=== PATIENT | male | born 1955 | race Caucasian/White ===

== ENCOUNTER 2017-12-22 11:00 | Emergency (ER) | payer SELFPAY ==
[~2017-12-22] VITALS: Ht 172.7 cm; Wt 128.0 kg
[2017-12-22 11:15] VITALS: BP 169/83; PULSE 66; RESP 18; TEMP 98.3; O2SAT 95
--- NOTE | 2017-12-22 13:18 | PD ---
HPI Chief Complaint: Back/ Neck Pain or Injury Time Seen by Provider: 13:03 Travel History International Travel<30 days: No Contact w/Intl Traveler<30days: No Traveled to known affect area: No History of Present Illness HPI 62-year-old male presents to the emergency department with complaint of low back pain 1 week. Denies traumatic injury. Says the pain was getting better but then decided to write on a 3 wagner yesterday, re-exacerbating his pain. Has history of low back pain and symptoms are consistent with past exacerbations , but have never been this bad. Denies encopresis, incontinence, saddle anesthesias. Denies IV drug use or cancer. Denies paresthesias, loss of sensation, decreased range of motion, decreased strength to bilateral lower extremities. Denies abdominal pain, change in urine or stool. Denies fever, vomiting. Back pain is right-sided. Has tried taking stfd-rxj-wlfscjv medications for symptom management. Has also tried using an cxem-rbb-sdnatgo pain pad to the area. Rates pain 10/10. Worse with movement, ambulation. A little better with rest. Stabbing in nature. No radiation of pain. No primary care provider. Denies significant past medical history. No known allergies. Has no other medical complaints. No other modifying factors or associated signs and symptoms. PFSH Past Medical History Medical History: Denies Significant Hx Tetanus Vaccination: > 5 Years ?: Not Past Surgical History Surgical History: No Previous Surgery Social History Alcohol Use: Yes (BEER DAILY) Tobacco Use: No Substance Use: No Allergies-Medications (Allergen,Severity, Reaction): Coded Allergies: No Known Allergies (Unverified , 12/22/17) Reported Meds & Prescriptions Reported Meds & Active Scripts Active [place] (Hydrocodone-Acetaminophen) 5 Mg-325 Mg Tab 1-2 Tab PO Q4-6H PRN Robaxin (Methocarbamol) 500 Mg Tab 500 Mg PO QID PRN Ibuprofen 800 Mg Tab 800 Mg PO Q8H PRN Review of Systems Except as stated in HPI: all other systems reviewed are Neg Physical Exam Narrative GENERAL: Well-nourished, well-developed male patient, in no acute distress; afebrile, nontoxic-appearing; appears painful SKIN: Warm and dry. HEAD: Atraumatic. Normocephalic. EYES: Pupils equal and round. No scleral icterus. No injection or drainage. ENT: Mucosa pink and moist. Airway patent. NECK: Trachea midline. CARDIOVASCULAR: Regular rate. RESPIRATORY: No accessory muscle use. GASTROINTESTINAL: Abdomen soft, non-tender, nondistended. Positive bowel sounds. No hepato-splenomegaly, or palpable masses. No guarding. MUSCULOSKELETAL: Bilateral lower extremities supple and non-tense with 2+ pedal pulses and sensory intact; with full range of motion and 5/5 strength. 2 + DTRs bilaterally. Active dorsiflexion and extension of bilateral feet. Right straight leg raise is positive for low back pain. Able to bear weight at the bedside and get to the wheelchair; unable to stand up straight secondary to pain; walks hunched over. Sitting up in bed at 90. No obvious deformities. No clubbing. No cyanosis. No edema. BACK: No midline point tenderness on palpation of the lumbar spine. Tenderness on palpation of right lumbar iliosacral area. No obvious deformities. NEUROLOGICAL: Awake and alert. Oriented 3. No obvious cranial nerve deficits. Motor grossly within normal limits. Normal speech. Moves all extremities. 5/5 strength to all extremities. Sensory intact. PSYCHIATRIC: Appropriate mood and affect; insight and judgment normal. Data Data Last Documented VS Vital Signs Date Time Temp Pulse Resp B/P (MAP) Pulse Ox O2 Delivery O2 Flow Rate FiO2 12/22/17 11:15 98.3 66 18 169/83 (111) 95 Orders Orders Ketorolac Inj (Toradol Inj) (12/22/17 13:30) Orphenadrine Inj (Norflex Inj) (12/22/17 13:30) Acetamin-Hydrocod 325-10 Mg ([place] 10-32 (12/22/17 14:15) Ed Discharge Order (12/22/17 14:08) [facility] Medical Decision Making Medical Screen Exam Complete: Yes Emergency Medical Condition: Yes Medical Record Reviewed: Yes Differential Diagnosis Acute exacerbation of chronic low back pain, low back pain, muscle spasm of low back, low back strain Narrative Course 62-year-old male with low back pain and muscle spasm of the lower back. He has history of low back pain and this exacerbation is consistent with past exacerbations, but worse. Denies traumatic injury. Denies encopresis, incontinence, saddle anesthesias. Denies IV drug use or cancer. Neuro exam is unremarkable. Patient able to ambulate in a hunched over position at the bedside. Toradol and Norflex administered in the ER. Patient still having significant pain after Toradol and Norflex. I discussed the patient with Dr. Jimenez and she is okay with me giving the patient something more for pain. [place] ordered. Ibuprofen, Robaxin, [place] prescribed for him. Instructed patient to follow up with primary care provider. Patient verbalizes understanding and agreement with treatment plan. Patient is medically cleared and stable for discharge. Discussed reasons to return to the emergency department. Patient agrees with treatment plan. The patients vital signs are stable and the patient is stable for outpatient follow-up and treatment. Patient discharged home, stable and in no acute distress. Diagnosis Primary Impression: Low back pain Qualified Codes: M54.5 - Low back pain Additional Impression: Muscle spasm Referrals: Primary Care Physician Patient Instructions: Acute Low Back Pain (ED), General Instructions, Low Back Strain (ED), Muscle Spasm (ED) Additional Instructions: Tylenol or ibuprofen as directed and as needed for pain Robaxin as prescribed and as needed for muscle spasms Heating pad and/or ice to affected area to reduce pain Avoid aggravating activities; increase activity as tolerated Follow-up with primary care provider Return to emergency department immediately with worsening of symptoms Med/Other Pt SpecificInfo: Prescription(s) given Scripts Hydrocodone-Acetaminophen ([place]) 5 Mg-325 Mg Tab 1-2 TAB PO Q4-6H Y for PAIN, #12 TAB 0 Refills Prov: Tammi Jimenez 12/22/17 Methocarbamol (Robaxin) 500 Mg Tab 500 MG PO QID Y for MUSCLE SPASM, #30 TAB 0 Refills Prov: Tammi Jimenez 12/22/17 Ibuprofen (Ibuprofen) 800 Mg Tab 800 MG PO Q8H Y for PAIN SCALE 1 TO 10, #20 TAB 0 Refills Prov: Tammi Jimenez 12/22/17 Disposition: 01 DISCHARGE HOME Condition: Stable Tammi Jimenez December 22, 2017 13:18
[2017-12-22] MEDS ORDERED: ROBA500T PO (13:21)
[2017-12-22] MEDS ORDERED: IBUP1TAB7 PO (13:21)
[2017-12-22] MEDS ORDERED: ORPHENADRINE INJ 60 MG/2 ML AMP IM ONE (13:30)
[2017-12-22] MEDS ORDERED: KETOROLAC TROMETHAMINE 60 MG/2 ML (IM) VIAL IM ONE (13:30)
[2017-12-22] MEDS ORDERED: NORC5TAB PO (14:08)
[2017-12-22] MEDS ORDERED: ACETAMINOPHEN/HYDROcodone 325 MG/10 MG TAB PO ONE (14:15)
== END 2017-12-22 14:26 | disposition home or self-care (01) ==
LOC: NEPD 11:00
DX: M54.5 Low back pain (principal); M62.838 Other muscle spasm
CPT/HCPCS: 96372; 99283; J1885; J2360

== ENCOUNTER 2018-01-09 10:48 | Inpatient (IN) | payer OTHER, MEDICARE ==
[~2018-01-09] VITALS: Ht 185.4 cm; Wt 121.3 kg
[2018-01-09] VITALS (12 sets, daily range): BP systolic 128–167; BP diastolic 69–100; PULSE 52–93; RESP 16–18; TEMP 97.8–99.5; O2SAT 92–100
[~2018-01-09 10:48] MED LIST: IBUP1TAB7 PO; NORC5TAB PO; ROBA500T PO
[2018-01-09] MEDS ORDERED: SODIUM CHLOR 0.9% 1000 ML INJ 1,000 ML IV ONE (10:52)
[2018-01-09] MEDS ORDERED: SODIUM CHLORIDE 0.9% FLUSH 10 ML FLUSH IVF PRN (11:00)
[2018-01-09] MEDS ORDERED: HEPARIN-NS/PF INJ 1,000 ML ONE (11:02)
[2018-01-09] MEDS ORDERED: VERAPAMIL HCL 5 MG/2 ML VIAL ONE (11:02)
[2018-01-09 11:07] LABS: AUTOMATED NEUTROPHIL # 2.6 TH/MM3 (1.8-7.7); BASOPHIL % 0.7 % (0.0-2.0); EOSINOPHIL # 0.1 TH/MM3 (0-0.4); EOSINOPHIL % 2.7 % (0.0-4.0); HEMATOCRIT 43.6 % (39.0-51.0); HEMOGLOBIN 14.9 GM/DL (13.0-17.0); LYMPH % 29.3 % (9.0-44.0); LYMPHOCYTE # 1.3 TH/MM3 (1.0-4.8); MEAN CELL VOLUME 92.7 FL (80.0-100.0); MEAN CORPUSCULAR HEMOGLOBIN 31.8 PG (27.0-34.0); MEAN CORPUSCULAR HGB CONC 34.2 % (32.0-36.0); MEAN PLATELET VOLUME 7.8 FL (7.0-11.0); MONO % 8.3 % (0.0-8.0); MONOCYTE # 0.4 TH/MM3 (0-0.9); PLATELET COUNT 153 TH/MM3 (150-450); RED CELL DISTRIBUTION WIDTH 14.2 % (11.6-17.2); WHITE BLOOD COUNT 4.4 TH/MM3 (4.0-11.0)
[2018-01-09] MEDS ORDERED: NITROGLYCERIN INJ 5 ML ONE (11:07)
[2018-01-09] MEDS ORDERED: MIDAZOLAM HCL 2 MG/2 ML VIAL ONE (11:11)
[2018-01-09 11:19] LABS: CALCIUM 8.8 MG/DL (8.5-10.1)
[2018-01-09 11:20] LABS: INTERNATIONAL NORMALIZED RATIO 1.1 RATIO; PROTHROMBIN TIME - PATIENT 11.1 SEC (9.8-11.6)
[2018-01-09 11:25] LABS: MAGNESIUM 2.2 MG/DL (1.5-2.5)
--- NOTE | 2018-01-09 11:33 | PD ---
HPI Chief Complaint: STEMI Alert Time Seen by Provider: 10:52 Travel History International Travel<30 days: No Contact w/Intl Traveler<30days: No Traveled to known affect area: No History of Present Illness HPI 63 y/o male presents by ambulance as a stemi alert. He had a witnessed cardiac arrest. Bystanders placed an AED on him and it advised to shock. Shock was delivered. Patient notes that he was feeling fine before he started working out. He states that he has not seen a physician in multiple years. He just started working out this week. He denies any other concurrent complaints at this time. The ambulance team provided him with aspirin prior to arrival. Dr. Aguilera was on scene and came with the patient in the ambulance and helped provide history. [facility] Past Medical History Medical History: Denies Significant Hx Past Surgical History Surgical History: No Previous Surgery Social History Alcohol Use: Yes (BEER DAILY) Tobacco Use: No Substance Use: No Allergies-Medications (Allergen,Severity, Reaction): Coded Allergies: No Known Allergies (Unverified , 12/22/17) Reported Meds & Prescriptions Reported Meds & Active Scripts Active [place] (Hydrocodone-Acetaminophen) 5 Mg-325 Mg Tab 1-2 Tab PO Q4-6H PRN Robaxin (Methocarbamol) 500 Mg Tab 500 Mg PO QID PRN Ibuprofen 800 Mg Tab 800 Mg PO Q8H PRN Review of Systems Except as stated in HPI: all other systems reviewed are Neg Physical Exam Narrative GENERAL: 63 y/o male in no apparent distess SKIN: Focused skin assessment warm HEAD: Atraumatic. Normocephalic. EYES: Pupils equal and round. No scleral icterus. No injection or drainage. ENT: No nasal bleeding or discharge. Mucous membranes pink and moist. NECK: Trachea midline. CARDIOVASCULAR: Regular rate and rhythm. RESPIRATORY: No accessory muscle use. Clear to auscultation. Breath sounds equal bilaterally. GASTROINTESTINAL: Abdomen soft, non-tender, nondistended. MUSCULOSKELETAL: No obvious deformities. No clubbing. No cyanosis. NEUROLOGICAL: Awake and alert. No obvious cranial nerve deficits. Motor grossly within normal limits. Normal speech. PSYCHIATRIC: Appropriate mood and affect; insight and judgment normal. Data Data Last Documented VS Vital Signs Date Time Temp Pulse Resp B/P (MAP) Pulse Ox O2 Delivery O2 Flow Rate FiO2 01/09/18 10:56 93 18 162/100 (120) 100 Non-Rebreather 14.00 Orders Orders Troponin I (01/09/18 10:52) Ckmb (Isoenzyme) Profile (01/09/18 10:52) Complete Blood Count With Diff (01/09/18 10:52) I-Stat Profile (01/09/18 10:52) I-Stat Creatinine (01/09/18 10:52) Calcium (01/09/18 10:52) Magnesium (Mg) (01/09/18 10:52) Prothrombin Time / Inr (Pt) (01/09/18 10:52) Act Partial Throm Time (Ptt) (01/09/18 10:52) B-Type Natriuretic Peptide (01/09/18 10:52) Electrocardiogram (01/09/18 10:52) Oxygen Administration (01/09/18 10:52) Iv Access Insert/Monitor (01/09/18 10:52) Oximetry (01/09/18 10:52) Sodium Chlor 0.9% 1000 Ml Inj (Ns 1000 M (01/09/18 10:52) Sodium Chloride 0.9% Flush (Ns Flush) (01/09/18 11:00) Chest, Single Ap (01/09/18 ) Cardiac Catheterization (01/09/18 ) Verapamil Inj (Isoptin Inj) (01/09/18 11:02) Heparin-Ns/Pf Inj (Heparin-Ns/Pf Inj) (01/09/18 11:02) Nitroglycerin Inj (Nitroglycerin Inj) (01/09/18 11:07) Admit Order (Ed Use Only) (01/09/18 11:10) Midazolam Inj (Versed Inj) (01/09/18 11:11) Fentanyl Inj (Fentanyl Inj) (01/09/18 11:11) CKMB (01/09/18 10:51) CKMB% (01/09/18 10:51) Labs Laboratory Tests Test 01/09/18 10:51 White Blood Count 4.4 TH/MM3 Red Blood Count 4.70 MIL/MM3 Hemoglobin 14.9 GM/DL Bedside Hemoglobin 13.6 G/DL Hematocrit 43.6 % Bedside Hematocrit 40.0 % Mean Corpuscular Volume 92.7 FL Mean Corpuscular Hemoglobin 31.8 PG Mean Corpuscular Hemoglobin Concent 34.2 % Red Cell Distribution Width 14.2 % Platelet Count 153 TH/MM3 Mean Platelet Volume 7.8 FL Neutrophils (%) (Auto) 59.0 % Lymphocytes (%) (Auto) 29.3 % Monocytes (%) (Auto) 8.3 % Eosinophils (%) (Auto) 2.7 % Basophils (%) (Auto) 0.7 % Neutrophils # (Auto) 2.6 TH/MM3 Lymphocytes # (Auto) 1.3 TH/MM3 Monocytes # (Auto) 0.4 TH/MM3 Eosinophils # (Auto) 0.1 TH/MM3 Basophils # (Auto) 0.0 TH/MM3 CBC Comment DIFF FINAL Differential Comment Prothrombin Time 11.1 SEC Prothromb Time International Ratio 1.1 RATIO Activated Partial Thromboplast Time 25.8 SEC Bedside Sodium 142 MMOL/L Bedside Potassium 3.7 MMOL/L Bedside Chloride 109 MMOL/L Bedside Blood Urea Nitrogen 12 MG/DL Bedside Creatinine 1.1 MG/DL Bedside Glucose 107 MG/DL Calcium Level 8.8 MG/DL Magnesium Level 2.2 MG/DL Total Creatine Kinase 272 U/L Creatine Kinase MB 2.6 NG/ML Troponin I 0.10 NG/ML B-Type Natriuretic Peptide 19 PG/ML MDM Medical Decision Making Medical Screen Exam Complete: Yes Emergency Medical Condition: Yes Medical Record Reviewed: Yes Interpretation(s) EKG shows ST depression V2 V3 with elevation in aVR concerning for posterior MT. STEMI alert was called given this and post cardiac arrest prior to arrival by EMS EKG ER EKG shows depression inferiorly and laterally I stats reviewed Differential Diagnosis V. tach, V. fib, MT Narrative Course Patient arrived as a stemi alert. Patient has no active chest pain and already received aspirin. Pain-free currently. Labs, chest x-ray ordered to help coordinate care to solar lab technician. Patient went to the [facility] with a director voice Physician Communication Physician Communication dr gordon notified of patient prior to arrival and sent ekg dr gordon saw patient in er and states will take to solar lab technician attempted to admit to medicine but they state needs to be admitted to the director voice Diagnosis Primary Impression: Ventricular arrhythmia Additional Impression: Syncope Qualified Codes: R55 - Syncope and collapse Berna Hall MD Jan 09, 2018 11:33
[2018-01-09] MEDS ORDERED: HEPARIN-D5W 25,000 U/250 ML 250 ML ONE (11:53)
--- NOTE | 2018-01-09 12:06 | CATHPROC ---
[employer] HIS Report Study Information Study Number Admission Scheduled Start Study Start [id number] Jan 09 2018 10:48AM 01/09/2018 Jan 09 2018 10:59AM [place] Service Cardiac Catheterization Admit Source Facility Department Emergency department [facility] - [facility] Physician Physician and Clinical Staff Initial Francois Schumacher Spanish Linguist Dorian Shannon,ARAM Spanish Linguist Layton Rizo,RN Recorder Jessica Armas ,RT(R) Scrub Cooper Valdovinos,RT(R) Procedures Performed Procedure Location (Site) Vessel Name Coronary Angiograms LCA Left Coronary Coronary Angiograms RCA Right Coronary L Heart Cath Wire insertion Radial (right) Radial Art. Equipment Time Inter Fold Roll Cutter Description Size Mfg Part Number Used/Scraped TRANSDUCER, TRUWAVE [id number] 11:01 MUIR COHEN * Used W/STOCKCOCK *[id number] *[id number] *[id number] *[id number] *[id number] 11:01 [employer] BLANKET,WARM AIR CCL * Used *[id number] 11:01 [employer] PACK, CCL CUSTOM * Used *[id number] 11:01 [employer] SUPPORT, ARTERIAL ADULT 86800 *[id number] Used BAND, RADIAL COMPRESSION TR [id number] 11:52 [employer] MEDICAL 29CM Used LARGE 29 *[id number] 11:01 Aula 7 WIRE, EXCHANGE 260CM 3MMJ 260CM Used *[id number] 11:01 NAMIC MANIFOLD, 4 PORT * Used *[id number] 11:01 [employer]ED OMNIPAQUE, 350 MG, 150ML 150ML [id number] Used SHEATH, FR6 TRANSRADIAL RM*[id number] 11:01 [employer] FR 6 Used SLENDER 10CM *[id number] History: Allergies Allergy Reaction No Known Allergies History: Risk Factors Family History of Hypertension Dyslipidemia Previous DC Previous Heart Failure Premature CAD No No No No No Prior Valve Prior PCI Prior CABG Surgery No No No Cerebrovascular Peripheral Artery Chronic Lung On Dialysis Diabetes Disease Disease Disease No No No No No History: Stress Tests Stress or Imaging Studies Performed No History: Other Current Smoker No Labs Hgb (g/dl) Hct (%) RBC (MIL/MM3) WBC (l/cumm) Platelets (thousands) 11.60-17.00 35.00-51.00 4.00-5.90 4.00-11.00 150.00-450.00 14.9 43.6 4.7 4.4 153 BUN (mg/dl) Creatinine (mg/dl) BUN:Creatinine (1:x) 7.00-18.00 0.50-1.30 10.00-20.00 12 1.1 10.9 Na (meq/l) K (meq/l) Cl (meq/l) 136.00-145.00 3.50-5.10 98.00-107.00 142 3.7 109 INR (PTT:PT) 0.90-1.10 1.1 CPK-MB (ng/ML) 0.50-3.60 Not Drawn Medication Medication Total Dose (Bolus/Oral) Medication Total Dosage/Unit 1% XYLOCAINE 5 mL FENTANYL 25 mcg HEPARIN 1000 units RADIAL COCKTAIL 5 mL (Bolus) VERSED 1 mg Medications (Bolus/Oral) Medication Time Given Dosage/Unit Administered By Reason VERSED 01/09/2018 11:21:57 AM 1 mg Sallie, Layton 1 mg VERSED given in lab by Layton Rizo RN in Left Antecubital via Peripheral IV. Ordered by Francois Guzman 1% XYLOCAINE 01/09/2018 11:22:38 AM 5 mL Sallie, Layton 5 mL 1% XYLOCAINE given in lab by Layton Rizo RN in Right Radial via Subcutaneous. Ordered by Francois Miranda FENTANYL 01/09/2018 11:22:59 AM 25 mcg Sallie, Layton 25 mcg FENTANYL given in lab by Layton Rizo RN in Left Antecubital via Peripheral IV. Ordered by Francois Lama Ntg 200mcg Verapamil 2.5mg Heparin RADIAL COCKTAIL 01/09/2018 11:23:52 AM 5 mL (Bolus) Francois Vincent 3000U 5 mL (Bolus) RADIAL COCKTAIL given in lab by Francois Vincent via Radial. Using [Solution Name]. O rdered by Francois Vincent Reason: Ntg 200mcg Verapamil 2.5mg Heparin 5000U. HEPARIN 01/09/2018 11:58:42 AM 1000 units Francois Vincent 1000 units HEPARIN given in lab by Francois Vincent in Left Antecubital via Peripheral IV. Ordered by Francois Vincent Medication (Drip) Medication Time Given Dosage/Unit Concentration/Unit Diluent (ml) Solution IV Solutions 01/09/2018 11:03:59 AM 50 mL (IV) NaCl .9 Patient arrived on IV Solutions in Left Antecubital via Peripheral IV. Pump/Drip Flow using NaCl .9. Initial Case Assessment Cardiovascular HR NIBP Chest Pain 89 154/93 2 Edema Present Skin color Skin None Normal Warm Dry Circulatory - Right Pulses Dorsalis Pedis Femoral Radial 1 1 2 Scale (0,1,2,3,4,d) Circulatory - Left Pulses Dorsalis Pedis Femoral Radial 1 1 Scale (0,1,2,3,4,d) Circulatory - Lower Extremities Color Lower Right Color Lower Left Normal Normal Neurological State Oriented to time-place- Alert Moves all extremities person Respiration - General Respiration Rate SpO2 (%) O2 (lpm) (B/min) 14 92 2 Final Case Assessment Cardiovascular HR NIBP Chest Pain 89 154/93 0 Edema Present Skin color Skin None Normal Warm Dry Circulatory - Right Pulses Dorsalis Pedis Femoral Radial 1 1 2 Scale (0,1,2,3,4,d) Circulatory - Left Pulses Dorsalis Pedis Femoral Radial 1 1 Scale (0,1,2,3,4,d) Circulatory - Lower Extremities Color Lower Right Color Lower Left Normal Normal Neurological State Oriented to time-place- Alert Moves all extremities person Respiration - General Respiration Rate SpO2 (%) O2 (lpm) (B/min) 14 92 2 Chronological Log Time Study Chronological Log 11:02:39 Patient arrived via Bed. 11:02:43 Patient Name, D.O.B, / Armband Verified By R.N. 11:03:48 Consent signed by the physician and the patient and verified by the Correctional Medicine Physician staff. 11:03:48 Pre-op and post- op instructions given; patient acknowledges understanding of instructions. 11:03:49 Verbal Stimulation=2 Physical Stimulation=2 Airway=2 Respiration=2 TOTAL=8. (0=absent, 1=li mited, 2=present) 11:03:51 Allens test performed on the left radial and ulnar artery. Positive 11:03:52 Immediate Presedation assesment performed by physician. 11:03:53 Patient has been NPO for More than 6Hrs. 11:03:53 Skin Breakdown- none per patient 11:03:54 Patient Warmer Placed on the Table. 11:03:57 Disposable Defibrillator Pads Placed On Patient. 11::57 Almas Prominences Protected 11::58 A # 18 IV was noted in the Antecubital (left). Grade = 0 11:03:58 A # 18 IV was noted in the Antecubital (right). Grade = 0 11:03:59 Patient arrived on IV Solutions in Left Antecubital via Peripheral IV. Pump/Drip Flow using NaCl .9. 11:03:59 History and physical on the chart or being dictated. Assessment: Initial Case, HR=89 BPM, DNSW=980/93 mmhg, Chest Pain=2, Edema=None, Color=Normal, Skin = Warm, Dry Right Pulses: Rayo Ped=1, Femoral=1, Radial=2 Left Pulses: Rayo Ped=1, Femoral=1 11:04:00 Lower Right Extremities: Color=Normal Lower Left Extremities: Color=Normal Neurological: State=Alert, Ox3, NASH Respiration: Resp=14 B/min, SpO2=92 %, O2=2 lpm 11:08:41 MD arrived. Vitals capture started with the following parameters, Patient=Adult, Interval=5 min, Initial Pr iuoqmo=706 mmHg, 11:08:48 Deflation Rate=5 mmHg, Cuff placed on Right Arm 11:09:30 DR=901 bpm, WZRP=997/93 mmhg, SpO2=91.0 %, Resp=27 B/min, Oneal=2 11:14:27 NTVN=942/92 mmhg, SpO2=95.0 %, Resp=25 B/min, Pain=2, Kesha=10, Oneal=2 11:19:01 Reference ECG taken 11:19:04 Pressure channel 1 zeroed. 11:19:26 HR=88 bpm, NZAV=840/91 mmhg, SpO2=93.0 %, Resp=21 B/min, Pain=2, Kesha=10, Oneal=2 Time Out. Correct patient, correct procedure, correct physician, labs, allergies, and equipment verified with mushroom laborer 11:21:07 team present. Fire risk assesment completed (see hard stop sheet for coding). Time Out Conc urred by MD and individual staff in procedure. 11:21:17 Case Start 11::57 1 mg VERSED given in lab by Layton Rizo RN in Left Antecubital via Peripheral IV. Ordered by Francois Vincent 5 mL 1% XYLOCAINE given in lab by Layton Rizo RN in Right Radial via Subcutaneous. Ordered by Francois Vincent 11:22:38 G. 25 mcg FENTANYL given in lab by Layton Rizo RN in Left Antecubital via Peripheral IV. Ordered by Francois Vincent 11:22:59 G. 11:23:05 Access site was Right Radial Artery. 11:23:15 A wire was inserted via Radial (right). A SHEATH, FR6 TRANSRADIAL SLENDER 10CM FR 6 was advanced into the Radial (right) using the Perc utaneous 11::21 technique. 5 mL (Bolus) RADIAL COCKTAIL given in lab by Francois Vincent via Radial. Using [Solution Na me]. Ordered by 11:23:52 Francois Vincent Reason: Ntg 200mcg Verapamil 2.5mg Heparin 5000U. 11:24:27 HR=86 bpm, RVXH=646/86 mmhg, SpO2=91.0 %, Resp=19 B/min, Pain=2, Kesha=10, Oneal=2 A JR 4.0 INFINITI CATHETER FR 5 was advanced over a wire. OMNIPAQUE, 350 MG, 150ML 150ML was us ed for 11:26:16 injections. Recorded Pressure: LV, HR=90, Condition=Condition 1 11:26:42 (Left Ventricle) LV 45/10/13 Recorded Pressure: LV, Ao, HR=92, Condition=Condition 1 11:26:53 (Left Ventricle) LV 126/-1/8, (Aorta) Ao 112/71/86 11:27:35 The RCA was injected and visualized at various angles. OMNIPAQUE, 350 MG, 150ML 150ML used . 11:29:26 HR=88 bpm, VZHA=215/75 mmhg, SpO2=91.0 %, Resp=23 B/min, Pain=2, Kesha=10, Oneal=2 After removing the current catheter a JL 3.5 INFINITI CATHETER FR 5 was advanced over a WIRE, E XCHANGE 260CM 11:31:14 3MMJ 260CM. 11:34:09 The LCA was injected and visualized at various angles. OMNIPAQUE, 350 MG, 150ML 150ML used . 11:34:26 HR=87 bpm, ECRT=989/73 mmhg, SpO2=92.0 %, Resp=22 B/min, Pain=0, Kesha=10, Oneal=2 11:36:17 Catheter was removed A 3DRC INFINITI CATHETER FR 5 was advanced over a wire. OMNIPAQUE, 350 MG, 150ML 150ML was used for 11:37:01 injections. 11:39:27 HR=85 bpm, UHML=804/81 mmhg, SpO2=93.0 %, Resp=21 B/min, Pain=2, Kesha=10, Oneal=2 11:40:46 A WIRE, EXCHANGE 260CM 3MMJ 260CM was inserted via Radial (right). 11:41:08 Wire removed 11:44:26 HR=82 bpm, GMWU=506/79 mmhg, SpO2=95.0 %, Resp=23 B/min, Pain=2, Kesha=10, Oneal=2 After removing the current catheter a AR MOD INFINITI CATHETER FR 5 was advanced over a WIRE, EXCHANGE 260CM 11:45:10 3MMJ 260CM. 11:49:29 HR=81 bpm, VNQR=291/82 mmhg, SpO2=95.0 %, Resp=23 B/min, Pain=2, Kesha=10, Oneal=2 11:50:17 Catheter was removed 11:50:25 Case End Assessment: Final Case, HR=89 BPM, SYGY=540/93 mmhg, Chest Pain=0, Edema=None, Color=Normal, S kin = Warm, Dry Right Pulses: Rayo Ped=1, Femoral=1, Radial=2 Left Pulses: Rayo Ped=1, Femoral=1 11:51:57 Lower Right Extremities: Color=Normal Lower Left Extremities: Color=Normal Neurological: State=Alert, Ox3, NASH Respiration: Resp=14 B/min, SpO2=92 %, O2=2 lpm 11:52:13 Catheter(s) removed without difficulty Radial Compression Device Used. 15 mLs of air placed in BAND, RADIAL COMPRESSION TR LARGE 29 2 9CM. Affected 11:52:17 hand ~O2 SATURATION~ % O2 saturation. 11:52:19 No case complications noted. 11:52:20 Cine recording checked. 11:52:21 Bedside Report will be given. 11:52:25 A Left Heart Cath was performed. 11:54:26 HR=80 bpm, ELNN=404/85 mmhg, SpO2=97.0 %, Resp=25 B/min, Pain=2, Kesha=10, Oneal=2 1000 units HEPARIN given in lab by Francois Vincent in Left Antecubital via Peripheral IV. Ordered by Carlton, 11:58:42 Francois Barba. 11:59:29 HR=91 bpm, ZFXH=523/83 mmhg, SpO2=96.0 %, Resp=23 B/min, Pain=2, Kesha=10, Oneal=2 12:03:06 [facility] End Study - Contrast Media Used In Study Contrast Total Opened (mL) Total Used (mL) Total Wasted (mL) Omnipaque 100 100 0 End Study - Maximum Contrast Load Max Contrast Load (mL) 454.5 End Study - Radiation Exposure Fluoro Time (minutes) 11.6 End Study - Sheaths Sheaths Pulled By Sheath Hold Time (min) Cooper Valdovinos End Study - Patient Disposition Complications Transferred To Interventional Outcome No Critical Care Bed No attempt made
[2018-01-09] MEDS: HEPARIN-D5W 25,000 U/250 ML 250 ML IV PRN (12:47)
[2018-01-09] MEDS ORDERED: IOHEXOL 350 MG/ML 100 ML BTL (for Cath Lab) OTHER ONE (13:27)
--- NOTE | 2018-01-09 13:45 | MH ---
cc: Francois Vincent DATE OF ADMISSION: 01/09/2018 CHIEF COMPLAINT: Cardiac arrest. HISTORY OF PRESENT ILLNESS: The patient is a pleasant 63-year-old male who presented to [facility] Emergency Room on 01/09/2018 as a STEMI alert. The patient just started working out over the past few days, trying to get more healthy and today he was on a machine pulling weights when he had a witnessed cardiac arrest. In speaking to the patient, he does not remember having chest pain or shortness of breath over the past few weeks or before the episode. Bystanders placed an AED on him and advised to shock and a shock was delivered. Dr. Arellano was at the scene and came in with the patient in the ambulance to help provide a history. On the scene an EKG was done and it was felt to be a posterior ST elevation WI and so a STEMI alert was called. On arrival to the emergency room, the patient was seen by Dr. Hall, as well as myself and repeat EKG was done. In seeing him, the patient currently denies chest pain or shortness of breath. PAST MEDICAL HISTORY: The patient denies past medical history, although he has not seen a physician in multiple years. His states that they had a [employer] screening around 3 years ago that supposedly went well. PAST SURGICAL HISTORY: Denies. ALLERGIES: NO KNOWN DRUG ALLERGIES. MEDICATIONS: 1. Robaxin 500 mg q.i.d. as needed for muscle spasm. 2. Ibuprofen 800 mg every 8 hours as needed for pain. 3. [place] 5/325 one to two tabs every 4-6 hours as needed for pain. FAMILY HISTORY: Denies premature coronary artery disease or sudden cardiac within the family. SOCIAL HISTORY: The patient previously smoked but quit a number of years ago. Denies drug abuse. He does drink beer daily, usually 1-2 and occasionally will have a few more on random days. REVIEW OF SYSTEMS: Fourteen systems were reviewed including osteopathic. Pertinent positives and negatives above, otherwise negative. PHYSICAL EXAMINATION: VITAL SIGNS: Heart rate 93, blood pressure 162/100, respirations 18, pulse oximetry 100% on a nonrebreather. GENERAL: The patient appears well in no acute distress, alert, awake and oriented x 3. HEENT: Extraocular muscles intact. Mucous membranes moist. NECK: Supple. No JVD at 45 degrees. No carotid bruits heard bilaterally. Carotid upstroke is brisk in nature. HEART: Regular rate and rhythm. Positive first and second heart sounds with a 1/6 holosystolic murmur noted at the apex. LUNGS: Clear to auscultation bilaterally. No wheezes, rales or rhonchi. ABDOMEN: Soft, nontender, nondistended. No organomegaly noted. EXTREMITIES: Show no clubbing, cyanosis or edema. Femoral and distal pulses intact bilaterally. NEUROLOGIC: No focal deficits. SKIN: Warm, dry and intact. OSTEOPATHIC: Mild lordosis. No kyphoscoliosis or paraspinal tender points. LABORATORY DATA: Hemoglobin 14.9, hematocrit 43.6, platelets 153. Potassium 3.7, BUN 12, creatinine 1.1. Troponin 0.10. Electrocardiogram (01/09/2018) showing sinus rhythm, ST depressions anterolaterally possibly due to ischemia, minimal elevation of AVR. IMPRESSIONS: 1. Cardiac arrest, felt to be due to ventricular tachycardia versus ventricular fibrillation. 2. EKG concerning for multivessel disease or left main disease, not a STEMI. 3. Remote tobacco abuse. 4. Alcohol use daily. RECOMMENDATIONS: 1. Aries Mendenhall presented with what appears to be either ventricular tachycardia or ventricular fibrillation, status post shock from an AED with sudden cardiac . This is most likely due to ischemia. 2. He was called a STEMI alert in the field, but overall his EKG appears to be more likely left main or multivessel disease. 3. I do believe that he needs to go urgently to the cardiac catheterization lab due to the preceding events. Risks, benefits and alternatives have been described to him and his and he consented to such. 4. We will check a 2-D echo to look at his overall left ventricular function, cardiac structure and possible valvulopathies. 5. Further recommendations will be made after coronary visualization. Thank you for allowing me to see Aries Mendenhall. If there are any questions, please do not hesitate to call. Francois Vincent DO VGP/TL , 01:16 PM , 01:43 PM
[2018-01-09] MEDS ORDERED: METOPROLOL TARTRATE 25 MG TAB PO ONE (14:15)
--- NOTE | 2018-01-09 14:23 | RADRPT ---
EXAM DATE: 01/09/2018 2:19 PM EDT AGE/SEX: 63 years / Male INDICATIONS: Chest pain today CLINICAL DATA: This is the patient's initial encounter. Patient reports that signs and symptoms have been present for 1 day and indicates a pain score of 7/10. MEDICAL/SURGICAL HISTORY: . cardiac arrestcardiac cath None. COMPARISON: No prior [place] exams available for comparison. FINDINGS: A single AP view of the chest demonstrates the lungs to be symmetrically aerated without evidence of mass, infiltrate or effusion. The cardiomediastinal contours are unremarkable. Osseous structures a re intact. CONCLUSION: Negative examination. Electronically signed by: Brodie Boone MD 01/09/2018 2:22 PM EDT
[2018-01-09] MEDS ORDERED: PILL SPLITTER OTHER PRN (14:30)
[2018-01-09] MEDS ORDERED: CEFAZOLIN INJ 500 MG in SODIUM CHLORIDE 0.9% IRR BTL 500 ML IRRIGATION SCH (15:00)
[2018-01-09] MEDS ORDERED: ceFAZolin 2 GM PREMIX 50 ML IV SCH (15:00)
[2018-01-09] MEDS ORDERED: INSULIN REGULAR (IV INFUSION) 100 UNITS in SODIUM CHLORIDE 0.9% INJ 99 ML IV PRN (15:00)
[2018-01-09] MEDS ORDERED: CHLORHEXIDINE GLUCONATE 4% SOLN 120 ML BTL TOPICAL SCH (15:00)
[2018-01-09] MEDS ORDERED: METOPROLOL TARTRATE 25 MG TAB PO SCH (15:00)
[2018-01-09] MEDS ORDERED: DEXTROSE 50% IN WATER 50 ML VIAL(D50) IV PUSH PRN (15:00)
[2018-01-09] MEDS ORDERED: SODIUM CHLORIDE 0.9% FLUSH 10 ML FLUSH IV FLUSH PRN (15:00)
[2018-01-09] MEDS ORDERED: PAPAVERINE INJ 60 MG, NITROGLYCERIN INJ 100 MCG, DILTIAZEM INJ 100 MG in SODIUM CHLORID... IRRIGATION SCH (15:00)
--- NOTE | 2018-01-09 15:19 | MB ---
cc: Lilian Marquis Sohit K MD DATE: 01/09/2018 HISTORY OF PRESENT ILLNESS: A 63-year-old male. The patient apparently was working out at the [facility] in [place] when he had just completed a mile on the treadmill and on the exercise bike. He was working out on one of the push machines, when he apparently had witnessed cardiac arrest. He went straight forward down to the ground. The bystander said that he was unresponsive. They grabbed the AED, which advised them to shock. The shock was delivered. There was a physician at the scene and came in with the patient in the ambulance to help provide a history. The EKG was done. The patient was felt to be a posterior ST segment [place]. A repeat EKG was done and it was felt to be a non-STEMI instead of a STEMI alert. Patient apparently had return of spontaneous circulation after the shock and 2 rounds of CPR. The patient denies having any history of cardiac disease, has not seen a physician in probably 20 years. He said he had a [employer] screening 3 years ago, which went well. He has recently moved from the [facility], just received a [employer] doctor and was just approved for his Medicare, since he just turned 63. PAST SURGICAL HISTORY: None. PAST MEDICAL HISTORY: None. ALLERGIES: NO KNOWN ALLERGIES. He was recently seen in the emergency department related to low back pain and was discharged with pain medication and Robaxin. SOCIAL HISTORY: The patient is retired construction. He drinks sometimes 2-4 beers plus per day. He smoked for about 40 years, 3 packs per day, quit 10 years ago. REVIEW OF SYSTEMS: GENERAL: No night sweats, fever, heat and cold intolerance. SKIN: No psoriasis, itching or hives. HEENT: No blurred vision, hearing loss. RESPIRATORY: No cough, shortness of breath. CARDIOVASCULAR: As above in the HPI. GASTROINTESTINAL: No diarrhea or vomiting. GENITOURINARY: No burning, frequency, urgency. CENTRAL NERVOUS SYSTEM: No history of TIA, CVA or seizure disorder. ENDOCRINOLOGY: No history of diabetes and hypothyroidism. PHYSICAL EXAMINATION: VITAL SIGNS: Blood pressure 128/70, heart rate is 75, afebrile. GENERAL: The patient is awake, alert, in no acute distress. HEENT: Head is normocephalic, atraumatic. Pupils equal and reactive. Oral mucosa pink, moist. NECK: Supple. No JVD. CARDIOVASCULAR: Heart sounds S1, S2. There is a 1/6 systolic murmur noted at the apex. LUNGS: Clear to auscultation. ABDOMEN: Obese, soft, nontender. No masses or organomegaly. EXTREMITIES: Reveal trace edema. Good distal pulses. NEUROLOGIC: No focal deficits. He is alert and oriented x 3, moves all extremities well. LABORATORY DATA: EKG shows sinus rhythm, ST depression anterolaterally. Lab work shows hemoglobin 14, hematocrit of 43. White cell count of 4.4, platelet count of 153. Sodium 142, potassium 3.7, BUN of 12, creatinine 1.1. Troponin 0.10. INR 1.1. Chest x-ray is unremarkable. IMPRESSION: The patient is status post cardiac arrest with post shock, either from ventricular tachycardia or ventricular fibrillation with return of spontaneous circulation, non-ST segment myocardial infarction, status post heart catheterization with multivessel disease. The cardiac films have been evaluated by Dr. Jin Marquez. PLAN: Will be for coronary artery bypass graft x 3 to the LAD, the obtuse marginal and the ramus, possible diagonal. A 2-D echo is pending for the left ventricular function and evaluation for any valvular disease. The patient is currently on statin, aspirin, heparin drip and beta donte. Further timing for surgery is scheduled for 01/15/2018. Procedures, alternatives and risks will be discussed with the patient as per Dr. Marquez. STS data will be documented in the electronic record once we receive his 2D echo results. Dictated by: CLAUDIO Levine CLAUDIO Hull JRT/TL , 02:52 PM , 03:17 PM
--- NOTE | 2018-01-09 15:30 | MA ---
cc: Francois Vincent DO DATE: 01/09/2018 PROCEDURE: Left heart catheterization, coronary angiogram, moderate sedation 30 minutes. PREPROCEDURE DIAGNOSES: Ventricular tachycardia, cardiac arrest, EKG changes. POSTPROCEDURE DIAGNOSIS: Multivessel coronary artery disease. MEDICATIONS: Versed 0.5 mg, fentanyl 25 mcg, nitroglycerin 200 mcg, heparin 5000 units, verapamil 2.5 mg, heparin drip at 1000 units per hour. CONTRAST USED: 100 mL FLUOROSCOPY: 11.6 minutes. MODERATE SEDATION: 30 minutes. FRAILTY SCORE: 3. ESTIMATED BLOOD LOSS: 10 mL PROCEDURAL SUMMARY: Aries Mendenhall is a pleasant 63-year-old male who presented to [facility] via EMS as a STEMI alert. He was working out, and had just started over the past few days and apparently went down. An AED was attached to him and it was advised to shock. Upon arrival of EMS, there was concern for posterior ST elevation myocardial infarction. On arrival to the [place] emergency room, he was talking, had no chest pain, and EKG more likely shows not a STEMI but changes consistent with ischemia. I felt that due to his ventricular arrhythmia requiring a shock, as well as his abnormal EKG and overall clinical presentation, that he should undergo urgent cardiac catheterization. Risks, benefits and alternatives were explained to him and he consented to such. He was brought to the lab and prepped in the usual sterile fashion. The right radial artery was accessed using a modified Seldinger technique and placement of a 5/6 Maced[place] slender sheath. This was easily aspirated and flushed. A JR4 was advanced over a J-wire to the ascending aorta and across the aortic valve for measurement of left ventricular pressure. This was pulled back across the aortic valve showing no significant gradient of aortic stenosis. JR4 was used for selective angiography of the right coronary artery system. This is exchanged out for a JL3.5, which was used for selective angiography of the left coronary artery system. I did attempt to go back with a 3DRC, as well as an AR mod to get better engagement of the right coronary artery system, but was unable to due to the significant tortuosity in his subclavian and aorta. Catheter was removed. Right radial band was placed over the arteriotomy site for hemostasis. The patient was placed on a heparin drip at 1000 units per hour. He left the cardiovascular lab director in a guarded state. FINDINGS: Left main: Normal-sized vessel with adequate reflux. It bifurcates into an LAD and circumflex. LAD: Normal-sized vessel with significant diffuse disease throughout the proximal portion of 60-70%. Mid to distal has multiple lesions of 80-90%. It gives off one diagonal which has a 90% lesion in the proximal portion. Left circumflex: Small to moderate-sized vessel. Mid portion has 70% disease. The first obtuse marginal has a 90% lesion in the proximal portion. The second obtuse marginal appears to have multiple lesions of 80-90% throughout the mid portion with good runoff distally. RCA: Mild luminal irregularities throughout the proximal portion with 20-30% throughout the mid to distal portion. Distally it gives off a PDA, as well as a posterolateral branch. PDA appears to have an overall small vessel, but a 90% disease in the mid portion. Overall, the posterolateral branch has mild luminal irregularities. LVEDP: 8. IMPRESSION: 1. Cardiac arrest. 2. Most likely ventricular tachycardia versus ventricular fibrillation. 3. Multivessel coronary artery disease. 4. Ischemic appearing EKG. RECOMMENDATIONS: 1. Mr. Mendenhall appears to have had an episode of ventricular tachycardia or ventricular fibrillation due to ischemia. 2. He underwent a cardiac arrest and was shocked by AED. 3. Due to the significance of his multivessel disease, he will see CT surgery for further recommendations of possible coronary artery bypass grafting. 4. We will check a 2-D echo to look at his overall left ventricular function, cardiac structure and possible valvulopathies. 5. He will be placed on a heparin drip due to the significance of his multivessel disease. 6. He will be continued on aspirin and beta donte therapy. 7. Further recommendations will be made based on the hospital course. Thank you for allowing me to see Aries Mendenhall. If there are any questions, please do not hesitate to call. Francois Vincent DO VGP/TL , 03:01 PM , 03:28 PM
[2018-01-09 16:19] LABS: HEMATOCRIT 43.4 % (39.0-51.0); HEMOGLOBIN 15.2 GM/DL (13.0-17.0); MEAN CORPUSCULAR HEMOGLOBIN 32.2 PG (27.0-34.0); MEAN PLATELET VOLUME 7.8 FL (7.0-11.0); PLATELET COUNT 155 TH/MM3 (150-450); RED BLOOD COUNT 4.72 MIL/MM3 (4.50-5.90); RED CELL DISTRIBUTION WIDTH 14.2 % (11.6-17.2); WHITE BLOOD COUNT 7.9 TH/MM3 (4.0-11.0)
[2018-01-09 16:37] LABS: INTERNATIONAL NORMALIZED RATIO 1.1 RATIO; PROTHROMBIN TIME - PATIENT 11.3 SEC (9.8-11.6)
[2018-01-09] MEDS: HEPARIN SODIUM - IV 10,000 UNITS/10 ML VIAL IV PUSH PRN ×2 (17:01→23:54)
--- NOTE | 2018-01-09 17:55 | ECHRPT ---
Indication: Cardiac arrest CONCLUSIONS Technically difficult study. The left ventricular systolic function is low normal with an estimated ejection fraction in the rang e of 50- 55%. There was limited left ventricular wall motion assessment due to poor endocardial visualization. Doppler parameters are consistent with impaired left ventricular relaxtion (grade 1 diastolic dysfun ction). Trace mitral valve regurgitation. There is trace tricuspid valve regurgitation. BP: / HR: Rhythm: MEASUREMENTS (Male / Female) Normal Values Technical Quality:Technically difficult study 2D ECHO LV Diastolic Diameter PLAX 4.6 cm 4.2 - 5.9 / 3.9 - 5.3 cm LV Systolic Diameter PLAX 3.7 cm IVS Diastolic Thickness 1.0 cm 0.6 - 1.0 / 0.6 - 0.9 cm LVPW Diastolic Thickness 0.8 cm 0.6 - 1.0 / 0.6 - 0.9 cm LV Relative Wall Thickness 0.4 RV Internal Dim ED PLAX 2.1 cm DOPPLER Mitral E Point Velocity 54.3 cm/s Mitral A Point Velocity 72.1 cm/s Mitral E to A Ratio 0.8 FINDINGS LEFT VENTRICLE Normal left ventricular size. Wall thickness is normal. The left ventricular systolic function is low normal with an estimated ejection fraction in the rang e of 50- 55%. There was limited left ventricular wall motion assessment due to poor endocardial visualization. Doppler parameters are consistent with impaired left ventricular relaxtion (grade 1 diastolic dysfun ction). RIGHT VENTRICLE Grossly normal LEFT ATRIUM The left atrial size is normal. RIGHT ATRIUM The right atrium is not well visualized. ATRIAL SEPTUM The interatrial septum not well visualized. AORTA The aortic root and proximal ascending aorta are not well visualized. MITRAL VALVE Grossly normal Mild mitral annular calcification. Trace mitral valve regurgitation. No mitral valve stenosis. AORTIC VALVE The aortic valve is not well visualized. No aortic valve stenosis. No aortic valve regurgitation. TRICUSPID VALVE Grossly normal There is trace tricuspid valve regurgitation. No tricuspid valve stenosis. PULMONARY VALVE The pulmonary valve is not well visualized. VESSELS The inferior vena cava is normal in size. PERICARDIUM No pericardial effusion. Francois Vincent DO (Electronically Signed) Final Date:09 January 2018 17:55
[2018-01-09] MEDS ORDERED: HEPARIN SODIUM - IV 10,000 UNITS/10 ML VIAL IV PUSH PRN (18:15)
[2018-01-09] MEDS: ATORVASTATIN 80 MG TAB PO SCH (20:42)
[2018-01-09] MEDS: SODIUM CHLORIDE 0.9% FLUSH 10 ML FLUSH IV FLUSH SCH (20:42)
[2018-01-09] MEDS: METOPROLOL TARTRATE 25 MG TAB PO SCH (20:42)
[2018-01-10] VITALS (29 sets, daily range): BP systolic 131–148; BP diastolic 63–85; PULSE 52–81; RESP 18–24; TEMP 97.6–99; O2SAT 92–96
[2018-01-10 06:12] LABS: AUTOMATED NEUTROPHIL # 4.6 TH/MM3 (1.8-7.7); BASOPHIL # 0.1 TH/MM3 (0-0.2); BASOPHIL % 0.8 % (0.0-2.0); EOSINOPHIL # 0.2 TH/MM3 (0-0.4); EOSINOPHIL % 2.6 % (0.0-4.0); HEMATOCRIT 42.3 % (39.0-51.0); HEMOGLOBIN 14.8 GM/DL (13.0-17.0); LYMPH % 21.4 % (9.0-44.0); LYMPHOCYTE # 1.5 TH/MM3 (1.0-4.8); MEAN CELL VOLUME 92.3 FL (80.0-100.0); MEAN CORPUSCULAR HEMOGLOBIN 32.3 PG (27.0-34.0); MEAN CORPUSCULAR HGB CONC 34.9 % (32.0-36.0); MEAN PLATELET VOLUME 7.7 FL (7.0-11.0); MONO % 9.3 % (0.0-8.0); MONOCYTE # 0.7 TH/MM3 (0-0.9); NEUT % 65.9 % (16.0-70.0); PLATELET COUNT 158 TH/MM3 (150-450); RED BLOOD COUNT 4.58 MIL/MM3 (4.50-5.90); RED CELL DISTRIBUTION WIDTH 14.2 % (11.6-17.2)
[2018-01-10] MEDS: HEPARIN SODIUM - IV 10,000 UNITS/10 ML VIAL IV PUSH PRN ×2 (06:36→14:02)
[2018-01-10 06:38] LABS: BICARBONATE 22.8 MEQ/L (21.0-32.0); CALCIUM 8.2 MG/DL (8.5-10.1); CREATININE 0.96 MG/DL (0.60-1.30)
[2018-01-10 06:40] LABS: CHOLESTEROL/ HDL RATIO 5.8 RATIO; HDL CHOLESTEROL 34.1 MG/DL (40.0-60.0)
[2018-01-10] MEDS: HEPARIN-D5W 25,000 U/250 ML 250 ML IV PRN (06:43)
[2018-01-10] MEDS: METOPROLOL TARTRATE 25 MG TAB PO SCH ×2 (09:03→21:00)
[2018-01-10] MEDS: MULTIVITAMIN TAB PO SCH (09:03)
[2018-01-10] MEDS: ASPIRIN 81 MG CHEW TAB PO SCH (09:03)
[2018-01-10] MEDS: FOLIC ACID 1 MG TAB PO SCH (09:03)
[2018-01-10] MEDS: THIAMINE HCL 100 MG TAB PO SCH (09:04)
[2018-01-10] MEDS: SODIUM CHLORIDE 0.9% FLUSH 10 ML FLUSH IV FLUSH SCH ×2 (09:04→20:50)
[2018-01-10 09:20] LABS: ALBUMIN 3.5 GM/DL (3.4-5.0); ALT (GPT) 86 U/L (12-78); AST (GOT) 46 U/L (15-37); DIRECT BILIRUBIN ADULT 0.1 MG/DL (0.0-0.2)
[2018-01-10 09:21] LABS: ALKALINE PHOSPHATASE 65 U/L (45-117); INDIRECT BILIRUBIN 0.7 MG/DL (0.0-0.8); TOTAL BILIRUBIN ADULT 0.8 MG/DL (0.2-1.0); TOTAL PROTEIN 6.8 GM/DL (6.4-8.2)
--- NOTE | 2018-01-10 09:33 | RADRPT ---
EXAM DATE: 01/10/2018 9:11 AM EDT AGE/SEX: 63 years / Male INDICATIONS: Preop cardiac surgery. CLINICAL DATA: This is the patient's initial encounter. Patient reports that signs and symptoms have been present for 1 day and indicates a pain score of 0/10. MEDICAL/SURGICAL HISTORY: . Sleep apnea. Cardiac arrest. . Cardiac cath. COMPARISON: No prior [place] exams available for comparison. No external comparison. TECHNIQUE: Venous ultrasound of both lower extremities was performed from the inguinal ligament to t he proximal calf. Real-time, color Doppler and spectral tracing, compression and augmentation techni ques were used. FINDINGS: Right Leg: There is normal compressibility of the deep venous system from the inguinal region to the proximal calf. No echogenic clot is seen in the lumen of the common femoral, femoral, popliteal, an d posterior tibial veins. There is a normal response of the venous system to proximal and distal aug mentation and respiration. Left Leg: There is normal compressibility of the deep venous system from the inguinal region to the proximal calf. No echogenic clot is seen in the lumen of the common femoral, femoral, popliteal, and posterior tibial veins. There is a normal response of the venous system to proximal and distal augm entation and respiration. CONCLUSION: 1. The study is negative for bilateral lower extremity deep venous thrombosis. Electronically signed by: Mehran Solis MD 01/10/2018 9:31 AM EDT
--- NOTE | 2018-01-10 10:03 | RADRPT ---
EXAM DATE: 01/10/2018 9:13 AM EDT AGE/SEX: 63 years / Male INDICATIONS: Preop cardiac surgery. CLINICAL DATA: This is the patient's initial encounter. Patient reports that signs and symptoms have been present for 1 day and indicates a pain score of 0/10. MEDICAL/SURGICAL HISTORY: . Sleep apnea. Cardiac arrest. . Cardiac cath. COMPARISON: No prior [place] exams available for comparison. No external comparison. MEASUREMENTS: RIGHT THIGH: Proximal:__7 mm Mid:__ 6 mm Distal:__4 mm LEFT THIGH: Proximal:__6 mm Mid:__4 mm Distal:__4 mm RIGHT CALF: Proximal:__3 mm Mid:__3 mm Distal:__3 mm LEFT CALF: Proximal:__3 mm Mid:__3 mm Distal:__3 mm FINDINGS: The venous system of the lower extremities are patent by color Doppler imaging. Measurements of the leg veins (in mm) are listed above. CONCLUSION: 1. Venous mapping as detailed above. Electronically signed by: Mehran Solis MD 01/10/2018 10:02 AM EDT
[2018-01-10 10:11] LABS: BILIRUBIN, URINE NEG (NEG); BLOOD, URINE SMALL (NEG); GLUCOSE,URINE NEG (NEG); KETONE, URINE NEG (NEG); MUCUS URINE FEW /lpf (OCC); NITRITE,URINE NEG (NEG); PH, URINE 5.5 (5.0-8.5); SQUAMOUS EPITHELIAL CELL URINE <1 /hpf (0-5); URINE COLOR YELLOW (YELLW/STRAW); URINE LEUKOCYTE ESTERASE NEG (NEG)
--- NOTE | 2018-01-10 10:42 | RADRPT ---
EXAM DATE: 01/10/2018 9:03 AM EDT AGE/SEX: 63 years / Male INDICATIONS: Preop cardiac surgery. CLINICAL DATA: This is the patient's initial encounter. Patient reports that signs and symptoms have been present for 1 day and indicates a pain score of 0/10. MEDICAL/SURGICAL HISTORY: . Sleep apnea. Cardiac arrest. . Cardiac cath. COMPARISON: No prior [place] exams available for comparison. No external comparison. VELOCITY PARAMETERS: ICA/CCA Ratio: Right 1.7 , Left 1.4 ICA: Right 114.2 cm/sec, Left 112.4 cm/sec CCA: Right 66.1 cm/sec, Left 82.2 cm/sec ECA: Right 124.1 cm/sec, Left 110.3 cm/sec Vertebral: Right 30.5 cm/sec antegrade, Left 36.6 cm/sec antegrade FINDINGS: Antegrade flow is seen in both vertebral arteries. There is moderate atherosclerotic plaquing at the origin of both ICAs without any significant stenosis. Elevated flow velocities and ICA/CCA ratios have been found to correlate with increased degrees of vessel stenosis, calculated as percentage of diameter relative to a normal segment of distal ICA. CONCLUSION: No evidence for hemodynamically significant stenosis. Electronically signed by: Norma Lainez MD 01/10/2018 10:41 AM EDT
--- NOTE | 2018-01-10 11:40 | PD.CAR.PN ---
CVT Progress Note Subjective/Hospital Course: 63-year-old male. The patient apparently was working out at the [facility] in [place] when he collapsed, witnessed cardiac arrest. The bystander said that he was unresponsive. They grabbed the AED, which advised them to shock. The shock was delivered. There was a physician at the scene and came in with the patient in the ambulance to help provide a history. The EKG was done. The patient was felt to be a posterior ST segment MO. A repeat EKG was done and it was felt to be a non-STEMI instead of a STEMI alert. Patient apparently had return of spontaneous circulation after the shock and 2 rounds of CPR. The patient denies having any history of cardiac disease, has not seen a physician in probably 20 years. He said he had a [employer] screening 3 years ago, which went well. Echo: EF 50%/ grade 1 diastolic dysfunction 01/10 pt pain free last pm , other than some soreness left upper chest from the shock scheduled for surgery on Monday on Heparin gtt sts data discussed with pt RISK SCORES About the STS Risk Calculator Procedure: CAB Only Risk of Mortality: 0.791% Morbidity or Mortality: 10.826% Long Length of Stay: 3.733% Short Length of Stay: 52.066% Permanent Stroke: 0.535% Prolonged Ventilation: 7.635% DSW Infection: 0.53% Renal Failure: 2.199% Reoperation: 3.864% Objective: GENERAL: SKIN: Warm and dry. HEAD: Normocephalic. EYES: No scleral icterus. No injection or drainage. NECK: Supple, trachea midline. No JVD or lymphadenopathy. CARDIOVASCULAR: Regular rate and rhythm without murmurs, gallops, or rubs. RESPIRATORY: Breath sounds equal bilaterally. No accessory muscle use. GASTROINTESTINAL: Abdomen soft, non-tender, nondistended. MUSCULOSKELETAL: No cyanosis, or edema. BACK: Nontender without obvious deformity. No CVA tenderness. Vital Signs Date Time Temp Pulse Resp B/P (MAP) Pulse Ox O2 Delivery O2 Flow Rate FiO2 01/10/18 10:00 59 01/10/18 09:00 57 01/10/18 08:00 55 01/10/18 07:00 59 01/10/18 07:00 98.2 57 18 134/74 (94) 92 01/10/18 06:00 55 01/10/18 05:00 52 01/10/18 04:00 54 01/10/18 03:30 98.6 52 18 131/63 (85) 92 01/10/18 03:00 52 01/10/18 02:00 58 01/10/18 01:00 62 01/10/18 00:11 93 home cpap 2.00 01/10/18 00:00 53 01/09/18 23:00 54 01/09/18 23:00 98.4 53 18 146/88 (107) 94 01/09/18 22:00 52 01/09/18 21:00 54 01/09/18 20:00 58 01/09/18 20:00 97.8 56 18 145/69 (94) 93 01/09/18 19:00 56 01/09/18 18:00 59 01/09/18 17:00 71 01/09/18 16:00 73 01/09/18 15:00 99.5 69 16 167/85 (112) 95 01/09/18 15:00 70 01/09/18 14:00 67 01/09/18 12:29 75 17 128/71 (90) 92 Labs: Laboratory Tests Test 01/10/18 05:44 01/10/18 09:30 White Blood Count 7.0 TH/MM3 (4.0-11.0) Red Blood Count 4.58 MIL/MM3 (4.50-5.90) Hemoglobin 14.8 GM/DL (13.0-17.0) Hematocrit 42.3 % (39.0-51.0) Mean Corpuscular Volume 92.3 FL (80.0-100.0) Mean Corpuscular Hemoglobin 32.3 PG (27.0-34.0) Mean Corpuscular Hemoglobin Concent 34.9 % (32.0-36.0) Red Cell Distribution Width 14.2 % (11.6-17.2) Platelet Count 158 TH/MM3 (150-450) Mean Platelet Volume 7.7 FL (7.0-11.0) Neutrophils (%) (Auto) 65.9 % (16.0-70.0) Lymphocytes (%) (Auto) 21.4 % (9.0-44.0) Monocytes (%) (Auto) 9.3 % (0.0-8.0) Eosinophils (%) (Auto) 2.6 % (0.0-4.0) Basophils (%) (Auto) 0.8 % (0.0-2.0) Neutrophils # (Auto) 4.6 TH/MM3 (1.8-7.7) Lymphocytes # (Auto) 1.5 TH/MM3 (1.0-4.8) Monocytes # (Auto) 0.7 TH/MM3 (0-0.9) Eosinophils # (Auto) 0.2 TH/MM3 (0-0.4) Basophils # (Auto) 0.1 TH/MM3 (0-0.2) CBC Comment DIFF FINAL Differential Comment Activated Partial Thromboplast Time 35.6 SEC (24.3-30.1) Blood Urea Nitrogen 14 MG/DL (7-18) Creatinine 0.96 MG/DL (0.60-1.30) Random Glucose 105 MG/DL (74-106) Calcium Level 8.2 MG/DL (8.5-10.1) Sodium Level 143 MEQ/L (136-145) Potassium Level 3.6 MEQ/L (3.5-5.1) Chloride Level 111 MEQ/L (98-107) Carbon Dioxide Level 22.8 MEQ/L (21.0-32.0) Anion Gap 9 MEQ/L (5-15) Estimat Glomerular Filtration Rate 79 ML/MIN (>89) Total Bilirubin 0.8 MG/DL (0.2-1.0) Direct Bilirubin 0.1 MG/DL (0.0-0.2) Indirect Bilirubin 0.7 MG/DL (0.0-0.8) Aspartate Amino Transf (AST/SGOT) 46 U/L (15-37) Alanine Aminotransferase (ALT/SGPT) 86 U/L (12-78) Alkaline Phosphatase 65 U/L (45-117) Total Protein 6.8 GM/DL (6.4-8.2) Albumin 3.5 GM/DL (3.4-5.0) Triglycerides Level 266 MG/DL (42-150) Cholesterol Level 198 MG/DL (120-200) LDL Cholesterol 111 MG/DL (0-99) HDL Cholesterol 34.1 MG/DL (40.0-60.0) Cholesterol/HDL Ratio 5.80 RATIO Urine Color YELLOW (YELLW/STRAW) Urine Turbidity CLEAR (CLEAR) Urine pH 5.5 (5.0-8.5) Urine Specific [place] 1.034 (1.002-1.035) Urine Protein 30 mg/dL (NEG-TRACE) Urine Glucose (UA) NEG mg/dL (NEG) Urine Ketones NEG mg/dL (NEG) Urine Occult Blood SMALL (NEG) Urine Nitrite NEG (NEG) Urine Bilirubin NEG (NEG) Urine Urobilinogen LESS THAN 2.0 MG/DL (LESS Urine Leukocyte Esterase NEG (NEG) Urine RBC 1 /hpf (0-3) Urine WBC 1 /hpf (0-5) Urine Squamous Epithelial Cells <1 /hpf (0-5) Urine Mucus FEW /lpf (OCC) Microscopic Urinalysis Comment CULT NOT INDICATED Result Diagram: 01/10/1854301/10/18543 Telemetry: NSR (1) s/p cardiac arrest Plan: on ASA, statin , BB , Heparin gtt for surgery on Monday (2) Hyperlipemia Plan: on statin dietary teaching (3) Hypertension (4) ETOH abuse Plan: on rally karen (5) Ventricular arrhythmia Plan: resolved (6) Syncope Problem Qualifiers (1) Syncope: Qualified Codes: R55 - Syncope and collapse Lilian Marquis Jan 10, 2018 11:40
--- NOTE | 2018-01-10 12:39 | PD.CARD.PN ---
Subjective Subjective Remarks No events overnight Doing well overall Objective Medications Current Medications Medications (Trade) Dose Ordered Sig/Edd Route Start Time Stop Time Status Last Admin (NS Flush) 2 ml UNSCH PRN IVF 01/09/18 11:00 (Aspirin Chew) 81 mg DAILY PO 01/10/18 09:00 01/10/18 09:03 (Lopressor) 12.5 mg BID PO 01/09/18 21:00 01/10/18 09:03 (Lipitor) 80 mg HS PO 01/09/18 21:00 01/09/18 20:42 (Heparin Inj) 5,000 units UNSCH PRN IV PUSH 01/09/18 18:15 (Heparin Inj) 2,500 units UNSCH PRN IV PUSH 01/09/18 18:15 01/10/18 06:36 Heparin Sodium/ Dextrose 250 ml @ 10 mls/hr TITRATE PRN IV 01/09/18 12:30 01/10/18 06:43 (Pill Splitter) 1 ea UNSCH PRN OTHER 01/09/18 14:30 (NS Flush) 2 ml BID IV FLUSH 01/09/18 21:00 01/10/18 09:04 (NS Flush) 2 ml UNSCH PRN IV FLUSH 01/09/18 15:00 Papaverine HCl 60 mg/Nitroglycerin 100 mcg/Diltiazem HCl 100 mg/Sodium Chloride 100 ml @ 0 mls/hr MUD ANALYSIS [employer]ING [employer]TAIN IRRIGATION 01/09/18 15:00 01/16/18 14:59 Cefazolin Sodium 500 mg/Sodium Chloride 505 ml @ 0 mls/hr MUD ANALYSIS [employer]ING [employer]TAIN IRRIGATION 01/09/18 15:00 01/16/18 14:59 Cefazolin Sodium/ Dextrose 50 ml @ 150 mls/hr MUD ANALYSIS [employer] LOGGING CAPTAIN IV 01/09/18 15:00 01/16/18 14:59 (Lopressor) 12.5 mg MUD ANALYSIS [employer] LOGGING CAPTAIN PO 01/09/18 15:00 01/16/18 14:59 (Hibiclens 4% Top Soln) 1 applic MUD ANALYSIS [employer]ING CAPTAIN TOPICAL 01/09/18 15:00 01/16/18 14:59 Insulin Human Regular 100 units/ Sodium Chloride 100 ml @ 3 mls/hr TITRATE PRN IV 01/09/18 15:00 01/16/18 14:59 (D50w (Vial) Inj) 50 ml UNSCH PRN IV PUSH 01/09/18 15:00 (Theragran) 1 tab DAILY PO 01/10/18 09:00 01/10/18 09:03 (Folate) 1 mg DAILY PO 01/10/18 09:00 01/10/18 09:03 (Vitamin B1) 100 mg DAILY PO 01/10/18 09:00 01/10/18 09:04 Vital Signs / I&O Vital Signs Date Time Temp Pulse Resp B/P (MAP) Pulse Ox O2 Delivery O2 Flow Rate FiO2 01/10/18 12:00 73 01/10/18 11:00 53 01/10/18 11:00 99.0 66 18 148/85 (106) 93 01/10/18 10:00 59 01/10/18 09:00 57 01/10/18 08:00 55 01/10/18 07:00 59 01/10/18 07:00 98.2 57 18 134/74 (94) 92 01/10/18 06:00 55 01/10/18 05:00 52 01/10/18 04:00 54 01/10/18 03:30 98.6 52 18 131/63 (85) 92 01/10/18 03:00 52 01/10/18 02:00 58 01/10/18 01:00 62 01/10/18 00:11 93 home cpap 2.00 01/10/18 00:00 53 01/09/18 23:00 54 01/09/18 23:00 98.4 53 18 146/88 (107) 94 01/09/18 22:00 52 01/09/18 21:00 54 01/09/18 20:00 58 01/09/18 20:00 97.8 56 18 145/69 (94) 93 01/09/18 19:00 56 01/09/18 18:00 59 01/09/18 17:00 71 01/09/18 16:00 73 01/09/18 15:00 99.5 69 16 167/85 (112) 95 01/09/18 15:00 70 01/09/18 14:00 67 I/O 01/09/18 01/09/18 01/09/18 01/10/18 01/10/18 01/10/18 07:00 15:00 23:00 07:00 15:00 23:00 Intake Total 291 ml 240 ml Output Total 500 ml Balance 291 ml -260 ml Intake Oral 240 ml 240 ml IV Total 51 ml Output Urine Total 500 ml # Bowel Movements 0 Physical Exam GENERAL: NAD, AAOx3 SKIN: Warm and dry. HEAD: Atraumatic. Normocephalic. EYES: Pupils equal and round. No scleral icterus. No injection or drainage. ENT: No nasal bleeding or discharge. Mucous membranes pink and moist. NECK: Trachea midline. No JVD. CARDIOVASCULAR: Regular rate and rhythm. RESPIRATORY: No accessory muscle use. Clear to auscultation. Breath sounds equal bilaterally. GASTROINTESTINAL: Abdomen soft, non-tender, nondistended. Hepatic and splenic margins not palpable. MUSCULOSKELETAL: Extremities without clubbing, cyanosis, or edema. No obvious deformities. NEUROLOGICAL: Awake and alert. No obvious cranial nerve deficits. Motor grossly within normal limits. Five out of 5 muscle strength in the arms and legs. Normal speech. PSYCHIATRIC: Appropriate mood and affect; insight and judgment normal. Laboratory Laboratory Tests Test 01/09/18 15:49 01/09/18 22:42 01/10/18 05:44 01/10/18 09:30 White Blood Count 7.9 TH/MM3 7.0 TH/MM3 Red Blood Count 4.72 MIL/MM3 4.58 MIL/MM3 Hemoglobin 15.2 GM/DL 14.8 GM/DL Hematocrit 43.4 % 42.3 % Mean Corpuscular Volume 92.0 FL 92.3 FL Mean Corpuscular Hemoglobin 32.2 PG 32.3 PG Mean Corpuscular Hemoglobin Concent 35.0 % 34.9 % Red Cell Distribution Width 14.2 % 14.2 % Platelet Count 155 TH/MM3 158 TH/MM3 Mean Platelet Volume 7.8 FL 7.7 FL Prothrombin Time 11.3 SEC Prothromb Time International Ratio 1.1 RATIO Activated Partial Thromboplast Time 32.4 SEC 33.3 SEC 35.6 SEC Neutrophils (%) (Auto) 65.9 % Lymphocytes (%) (Auto) 21.4 % Monocytes (%) (Auto) 9.3 % Eosinophils (%) (Auto) 2.6 % Basophils (%) (Auto) 0.8 % Neutrophils # (Auto) 4.6 TH/MM3 Lymphocytes # (Auto) 1.5 TH/MM3 Monocytes # (Auto) 0.7 TH/MM3 Eosinophils # (Auto) 0.2 TH/MM3 Basophils # (Auto) 0.1 TH/MM3 CBC Comment DIFF FINAL Differential Comment Blood Urea Nitrogen 14 MG/DL Creatinine 0.96 MG/DL Random Glucose 105 MG/DL Calcium Level 8.2 MG/DL Sodium Level 143 MEQ/L Potassium Level 3.6 MEQ/L Chloride Level 111 MEQ/L Carbon Dioxide Level 22.8 MEQ/L Anion Gap 9 MEQ/L Estimat Glomerular Filtration Rate 79 ML/MIN Total Bilirubin 0.8 MG/DL Direct Bilirubin 0.1 MG/DL Indirect Bilirubin 0.7 MG/DL Aspartate Amino Transf (AST/SGOT) 46 U/L Alanine Aminotransferase (ALT/SGPT) 86 U/L Alkaline Phosphatase 65 U/L Total Protein 6.8 GM/DL Albumin 3.5 GM/DL Triglycerides Level 266 MG/DL Cholesterol Level 198 MG/DL LDL Cholesterol 111 MG/DL HDL Cholesterol 34.1 MG/DL Cholesterol/HDL Ratio 5.80 RATIO Urine Color YELLOW Urine Turbidity CLEAR Urine pH 5.5 Urine Specific [place] 1.034 Urine Protein 30 mg/dL Urine Glucose (UA) NEG mg/dL Urine Ketones NEG mg/dL Urine Occult Blood SMALL Urine Nitrite NEG Urine Bilirubin NEG Urine Urobilinogen LESS THAN 2.0 MG/DL Urine Leukocyte Esterase NEG Urine RBC 1 /hpf Urine WBC 1 /hpf Urine Squamous Epithelial Cells <1 /hpf Urine Mucus FEW /lpf Microscopic Urinalysis Comment CULT NOT INDICATED Test 01/10/18 11:00 Imaging Last 24 hours Impressions Lower Extremity Ultrasound 01/10/18 Signed Impressions: CONCLUSION: 1. Venous mapping as detailed above. Lower Extremity Ultrasound 01/10/18 Signed Impressions: CONCLUSION: 1. The study is negative for bilateral lower extremity deep venous thrombosis. Carotid Artery Ultrasound 01/10/18 Signed Impressions: CONCLUSION: No evidence for hemodynamically significant stenosis. Assessment and Plan Problem List: (1) s/p cardiac arrest (2) Hyperlipemia ICD Codes: E78.5 - Hyperlipidemia, unspecified (3) Hypertension ICD Codes: I10 - Essential (primary) hypertension (4) ETOH abuse ICD Codes: F10.10 - Alcohol abuse, uncomplicated (5) Ventricular arrhythmia ICD Codes: I49.9 - Cardiac arrhythmia, unspecified Status: Acute (6) Syncope ICD Codes: R55 - Syncope and collapse Status: Acute Assessment and Plan 1) Cardiac arrest due to VT 2) VT due to ischemia 3) MVCAD/NSTEMI Plan for CABG on Monday Heparin drip 4) EF 50-55% 5) Asymptomatic bradycardia due to BB Con't pre-op for CABG Problem Qualifiers (1) Syncope: Qualified Codes: R55 - Syncope and collapse Francois Vincent DO Jan 10, 2018 12:39
--- NOTE | 2018-01-10 13:39 | PD.CONS ---
HPI Service [facility] Hospitalists Consult Requested By Primary Care Physician Unknown Diagnoses: (1) Syncope (2) Ventricular arrhythmia (3) s/p cardiac arrest (4) Hyperlipemia (5) Hypertension History of Present Illness This is a 63-year-old male who presented to the ER on 01/09/2018 after having a syncopal episode at the gym. He was exercising and became dizzy and passed out. He denies any chest pain or abnormal shortness of breath associated with his episode. He does state that at the gym there was a radiographer angiogram that showed his heart rate was up to 127. In retrospect this was a cardiac arrest, likely due to primary or secondary arrhythmia. Fortunately there was a doctor and staff at the gym who placed him on a AED for early resuscitation. Heart cath yesterday revealed two-vessel disease and it was determined that he would benefit from a CABG instead of stenting. He denies any current chest pain, denies shortness of breath. Review of Systems Constitutional: DENIES: Diaphoretic episodes, Fatigue, Fever, Weight gain, Weight loss Ears, nose, mouth, throat: DENIES: Tinnitus, Hearing loss, Vertigo Respiratory: DENIES: Apneas, Cough, Snoring, Wheezing, Hemoptysis Cardiovascular: COMPLAINS OF: Syncope, DENIES: Chest pain, Palpitations, Dyspnea on Exertion Gastrointestinal: DENIES: Abdominal pain, Black stools, Bloody stools, Constipation Musculoskeletal: COMPLAINS OF: Stiffness, DENIES: Joint pain, Muscle aches Integumentary: DENIES: Abnormal pigmentation, Nail changes, Pruritus, Rash Hematologic/lymphatic: DENIES: Bruising, Lymphadenopathy Neurologic: DENIES: Abnormal gait, Headache, Localized weakness, Paresthesias, Speech Problems, Poor Balance Psychiatric: DENIES: Anxiety, Confusion, Mood changes, Depression, Hallucinations, Suicidal Ideation Past Family Social History Allergies: Coded Allergies: No Known Allergies (Unverified , 12/22/17) Past Medical History Patient denies any significant medical issues Past Surgical History Skin cyst removed from left thorax Family History Coronary artery disease, Parkinson's, great-grandmother lived to 103 Social History Drinks 4 beers per day, quit smoking 10 years ago (smoked for 20 years) Physical Exam Vital Signs Vital Signs Date Time Temp Pulse Resp B/P (MAP) Pulse Ox O2 Delivery O2 Flow Rate FiO2 01/10/18 12:00 73 01/10/18 11:00 53 01/10/18 11:00 99.0 66 18 148/85 (106) 93 01/10/18 10:00 59 01/10/18 09:00 57 01/10/18 08:00 55 01/10/18 07:00 59 01/10/18 07:00 98.2 57 18 134/74 (94) 92 01/10/18 06:00 55 01/10/18 05:00 52 01/10/18 04:00 54 01/10/18 03:30 98.6 52 18 131/63 (85) 92 01/10/18 03:00 52 01/10/18 02:00 58 01/10/18 01:00 62 01/10/18 00:11 93 home cpap 2.00 01/10/18 00:00 53 01/09/18 23:00 54 01/09/18 23:00 98.4 53 18 146/88 (107) 94 01/09/18 22:00 52 01/09/18 21:00 54 01/09/18 20:00 58 01/09/18 20:00 97.8 56 18 145/69 (94) 93 01/09/18 19:00 56 01/09/18 18:00 59 01/09/18 17:00 71 01/09/18 16:00 73 01/09/18 15:00 99.5 69 16 167/85 (112) 95 01/09/18 15:00 70 01/09/18 14:00 67 Physical Exam GENERAL: This is a well-nourished, obese, strong, in no apparent distress. SKIN: No rashes, ecchymoses or lesions. Cool and dry. HEAD: Atraumatic. Normocephalic. No temporal or scalp tenderness. EYES: Pupils equal round and reactive. Extraocular motions intact. No scleral icterus. No injection or drainage. ENT: Nose without bleeding, purulent drainage or septal hematoma. Throat without erythema, tonsillar hypertrophy or exudate. Uvula midline. Airway patent. NECK: Trachea midline. No JVD or lymphadenopathy. Supple, nontender, no meningeal signs. CARDIOVASCULAR: Regular rate and rhythm without murmurs, gallops, or rubs. RESPIRATORY: Clear to auscultation. Breath sounds equal bilaterally. No wheezes , rales, or rhonchi. GASTROINTESTINAL: Abdomen soft, non-tender, nondistended. No hepato-splenomegaly , or palpable masses. No guarding. MUSCULOSKELETAL: Extremities without clubbing, cyanosis, or edema. No joint tenderness, effusion, or edema noted. No calf tenderness. Negative Homans sign bilaterally. NEUROLOGICAL: Awake and alert. Cranial nerves II through XII intact. Motor and sensory grossly within normal limits. Five out of 5 muscle strength in all muscle groups. Normal speech. Laboratory Laboratory Tests Test 01/09/18 15:49 01/09/18 22:42 01/10/18 05:44 01/10/18 09:30 White Blood Count 7.9 7.0 Red Blood Count 4.72 4.58 Hemoglobin 15.2 14.8 Hematocrit 43.4 42.3 Mean Corpuscular Volume 92.0 92.3 Mean Corpuscular Hemoglobin 32.2 32.3 Mean Corpuscular Hemoglobin Concent 35.0 34.9 Red Cell Distribution Width 14.2 14.2 Platelet Count 155 158 Mean Platelet Volume 7.8 7.7 Prothrombin Time 11.3 Prothromb Time International Ratio 1.1 Activated Partial Thromboplast Time 32.4 33.3 35.6 Neutrophils (%) (Auto) 65.9 Lymphocytes (%) (Auto) 21.4 Monocytes (%) (Auto) 9.3 Eosinophils (%) (Auto) 2.6 Basophils (%) (Auto) 0.8 Neutrophils # (Auto) 4.6 Lymphocytes # (Auto) 1.5 Monocytes # (Auto) 0.7 Eosinophils # (Auto) 0.2 Basophils # (Auto) 0.1 CBC Comment DIFF FINAL Differential Comment Blood Urea Nitrogen 14 Creatinine 0.96 Random Glucose 105 Calcium Level 8.2 Sodium Level 143 Potassium Level 3.6 Chloride Level 111 Carbon Dioxide Level 22.8 Anion Gap 9 Estimat Glomerular Filtration Rate 79 Total Bilirubin 0.8 Direct Bilirubin 0.1 Indirect Bilirubin 0.7 Aspartate Amino Transf (AST/SGOT) 46 Alanine Aminotransferase (ALT/SGPT) 86 Alkaline Phosphatase 65 Total Protein 6.8 Albumin 3.5 Triglycerides Level 266 Cholesterol Level 198 LDL Cholesterol 111 HDL Cholesterol 34.1 Cholesterol/HDL Ratio 5.80 Urine Color YELLOW Urine Turbidity CLEAR Urine pH 5.5 Urine Specific [place] 1.034 Urine Protein 30 Urine Glucose (UA) NEG Urine Ketones NEG Urine Occult Blood SMALL Urine Nitrite NEG Urine Bilirubin NEG Urine Urobilinogen LESS THAN 2.0 Urine Leukocyte Esterase NEG Urine RBC 1 Urine WBC 1 Urine Squamous Epithelial Cells <1 Urine Mucus FEW Microscopic Urinalysis Comment CULT NOT INDICATED Test 01/10/18 11:00 01/10/18 12:20 Activated Partial Thromboplast Time 37.7 Result Diagram: 01/10/18 0544 01/10/18 0544 Assessment and Plan Problem List: (1) Syncope ICD Code: R55 - Syncope and collapse Status: Acute (2) Ventricular arrhythmia ICD Code: I49.9 - Cardiac arrhythmia, unspecified Status: Acute (3) s/p cardiac arrest (4) Hyperlipemia ICD Code: E78.5 - Hyperlipidemia, unspecified (5) Hypertension ICD Code: I10 - Essential (primary) hypertension Assessment and Plan NSTEMI s/p cardiac arrest, Ventricular arrhythmia Patient revived at the gym yesterday by bystanders using AED He states his chest is sore on the left from the shocks Denies any current chest pain or shortness of breath Multivessel disease present on angiogram Open heart surgery scheduled for 01/15/2018 Appreciate cardiology consult Appreciate cardiothoracic surgery consult Hypertension Patient started on metoprolol Continue with metoprolol Dyslipidemia Borderline elevation We will defer selection to cardiology DVT prophylaxis Heparin Problem Qualifiers (1) Syncope: Qualified Codes: R55 - Syncope and collapse Favian Brandon MD Jan 10, 2018 13:39
[2018-01-10] MEDS: ATORVASTATIN 80 MG TAB PO SCH (20:50)
[2018-01-11] VITALS (25 sets, daily range): BP systolic 137–163; BP diastolic 67–83; PULSE 48–78; RESP 20–22; TEMP 97.6–97.9; O2SAT 92–96
[2018-01-11] MEDS: HEPARIN SODIUM - IV 10,000 UNITS/10 ML VIAL IV PUSH PRN ×2 (04:03→15:50)
[2018-01-11] MEDS: METOPROLOL TARTRATE 25 MG TAB PO SCH ×2 (09:00→20:55)
[2018-01-11] MEDS: MULTIVITAMIN TAB PO SCH (09:05)
[2018-01-11] MEDS: THIAMINE HCL 100 MG TAB PO SCH (09:05)
[2018-01-11] MEDS: ASPIRIN 81 MG CHEW TAB PO SCH (09:05)
[2018-01-11] MEDS: FOLIC ACID 1 MG TAB PO SCH (09:06)
[2018-01-11] MEDS: SODIUM CHLORIDE 0.9% FLUSH 10 ML FLUSH IV FLUSH SCH ×2 (09:07→20:55)
--- NOTE | 2018-01-11 09:59 | PD.CAR.PN ---
CVT Progress Note Subjective/Hospital Course: 63-year-old male. The patient apparently was working out at the [facility] in [place] when he collapsed, witnessed cardiac arrest. The bystander said that he was unresponsive. They grabbed the AED, which advised them to shock. The shock was delivered. There was a physician at the scene and came in with the patient in the ambulance to help provide a history. The EKG was done. The patient was felt to be a posterior ST segment PR. A repeat EKG was done and it was felt to be a non-STEMI instead of a STEMI alert. Patient apparently had return of spontaneous circulation after the shock and 2 rounds of CPR. The patient denies having any history of cardiac disease, has not seen a physician in probably 20 years. He said he had a [employer] screening 3 years ago, which went well. Echo: EF 50%/ grade 1 diastolic dysfunction 01/10 pt pain free last pm , other than some soreness left upper chest from the shock scheduled for surgery on Monday on Heparin gtt 01/11 per nursing , pt had one + Hemoccult stool/ second pending , if + will need GI consult , on PPI no chest pain on heparin gtt Objective: GENERAL: A& O x 3 SKIN: Warm and dry. HEAD: Normocephalic. EYES: No scleral icterus. No injection or drainage. NECK: Supple, trachea midline. No JVD or lymphadenopathy. CARDIOVASCULAR: Regular rate and rhythm without murmurs, gallops, or rubs. RESPIRATORY: Breath sounds equal bilaterally. No accessory muscle use. GASTROINTESTINAL: Abdomen soft, non-tender, nondistended. MUSCULOSKELETAL: No cyanosis, or edema. BACK: Nontender without obvious deformity. No CVA tenderness. Vital Signs Date Time Temp Pulse Resp B/P (MAP) Pulse Ox O2 Delivery O2 Flow Rate FiO2 01/11/18 07:40 48 01/11/18 07:37 97.9 48 20 137/67 (90) 95 01/11/18 06:00 48 01/11/18 05:00 50 01/11/18 04:00 62 01/11/18 03:00 97.6 52 22 140/67 (91) 92 01/11/18 03:00 52 01/11/18 02:00 52 01/11/18 01:00 52 01/11/18 00:00 56 01/10/18 23:00 97.6 54 24 137/67 (90) 93 01/10/18 23:00 54 01/10/18 22:00 52 01/10/18 21:58 96 2.00 01/10/18 21:00 56 01/10/18 20:14 58 01/10/18 20:00 54 01/10/18 19:11 65 01/10/18 19:00 97.6 65 22 136/69 (91) 95 01/10/18 18:00 65 01/10/18 17:00 59 01/10/18 16:00 63 01/10/18 15:00 81 01/10/18 15:00 97.9 64 18 142/74 (96) 94 01/10/18 14:00 52 01/10/18 13:00 65 01/10/18 12:00 73 01/10/18 11:00 53 01/10/18 11:00 99.0 66 18 148/85 (106) 93 01/10/18 10:00 59 Labs: Laboratory Tests Test 01/11/18 02:53 Activated Partial Thromboplast Time 37.8 SEC (24.3-30.1) Result Diagram: 01/10/18 0544 01/10/18 0544 (1) s/p cardiac arrest Plan: on ASA, statin , BB , Heparin gtt for surgery on Monday (2) Hyperlipemia Plan: on statin dietary teaching (3) Hypertension (4) ETOH abuse Plan: on rally karen (5) Ventricular arrhythmia Plan: resolved (6) Syncope (7) Heme + stool Plan: await second Hemoccult, if + will need GI consult Problem Qualifiers (1) Syncope: Qualified Codes: R55 - Syncope and collapse Lilian Marquis Jan 11, 2018 09:59
[2018-01-11] MEDS: PANTOPRAZOLE SOD 40 MG DELAYED RELEASE TAB PO SCH ×2 (11:24→20:54)
--- NOTE | 2018-01-11 12:01 | PD.CARD.PN ---
Subjective Subjective Remarks No events overnight Doing well overall Objective Medications Current Medications Medications (Trade) Dose Ordered Sig/Edd Route Start Time Stop Time Status Last Admin (Aspirin Chew) 81 mg DAILY PO 01/10/18 09:00 01/11/18 09:05 (Lopressor) 12.5 mg BID PO 01/09/18 21:00 01/10/18 09:03 (Lipitor) 80 mg HS PO 01/09/18 21:00 01/10/18 20:50 (Heparin Inj) 5,000 units UNSCH PRN IV PUSH 01/09/18 18:15 (Heparin Inj) 2,500 units UNSCH PRN IV PUSH 01/09/18 18:15 01/11/18 04:03 Heparin Sodium/ Dextrose 250 ml @ 10 mls/hr TITRATE PRN IV 01/09/18 12:30 01/10/18 06:43 (Pill Splitter) 1 ea UNSCH PRN OTHER 01/09/18 14:30 (NS Flush) 2 ml BID IV FLUSH 01/09/18 21:00 01/11/18 09:07 (NS Flush) 2 ml UNSCH PRN IV FLUSH 01/09/18 15:00 Papaverine HCl 60 mg/Nitroglycerin 100 mcg/Diltiazem HCl 100 mg/Sodium Chloride 100 ml @ 0 mls/hr TIER IN IRRIGATION 01/09/18 15:00 01/16/18 14:59 Cefazolin Sodium 500 mg/Sodium Chloride 505 ml @ 0 mls/hr TIER IN IRRIGATION 01/09/18 15:00 01/16/18 14:59 Cefazolin Sodium/ Dextrose 50 ml @ 150 mls/hr TIER IN IV 01/09/18 15:00 01/16/18 14:59 (Lopressor) 12.5 mg TIER IN PO 01/09/18 15:00 01/16/18 14:59 (Hibiclens 4% Top Soln) 1 applic TIER IN TOPICAL 01/09/18 15:00 01/16/18 14:59 Insulin Human Regular 100 units/ Sodium Chloride 100 ml @ 3 mls/hr TITRATE PRN IV 01/09/18 15:00 01/16/18 14:59 (D50w (Vial) Inj) 50 ml UNSCH PRN IV PUSH 01/09/18 15:00 (Theragran) 1 tab DAILY PO 01/10/18 09:00 01/11/18 09:05 (Folate) 1 mg DAILY PO 01/10/18 09:00 01/11/18 09:06 (Vitamin B1) 100 mg DAILY PO 01/10/18 09:00 01/11/18 09:05 (Protonix) 40 mg Q12HR PO 01/11/18 11:00 01/11/18 11:24 Vital Signs / I&O Vital Signs Date Time Temp Pulse Resp B/P (MAP) Pulse Ox O2 Delivery O2 Flow Rate FiO2 01/11/18 11:00 52 01/11/18 11:00 97.9 54 20 159/77 (104) 94 01/11/18 10:10 55 01/11/18 09:00 60 01/11/18 08:00 64 01/11/18 07:40 48 01/11/18 07:37 97.9 48 20 137/67 (90) 95 01/11/18 06:00 48 01/11/18 05:00 50 01/11/18 04:00 62 01/11/18 03:00 97.6 52 22 140/67 (91) 92 01/11/18 03:00 52 01/11/18 02:00 52 01/11/18 01:00 52 01/11/18 00:00 56 01/10/18 23:00 97.6 54 24 137/67 (90) 93 01/10/18 23:00 54 01/10/18 22:00 52 01/10/18 21:58 96 2.00 01/10/18 21:00 56 01/10/18 20:14 58 01/10/18 20:00 54 01/10/18 19:11 65 01/10/18 19:00 97.6 65 22 136/69 (91) 95 01/10/18 18:00 65 01/10/18 17:00 59 01/10/18 16:00 63 01/10/18 15:00 81 01/10/18 15:00 97.9 64 18 142/74 (96) 94 01/10/18 14:00 52 01/10/18 13:00 65 I/O 01/10/18 01/10/18 01/10/18 01/11/18 01/11/18 01/11/18 07:00 15:00 23:00 07:00 15:00 23:00 Intake Total 240 ml 720 ml 240 ml Output Total 500 ml 1075 ml 900 ml Balance -260 ml -355 ml -660 ml Intake Oral 240 ml 720 ml 240 ml Output Urine Total 500 ml 1075 ml 900 ml # Voids 1 # Bowel Movements 0 1 Physical Exam GENERAL: NAD, AAOx3 SKIN: Warm and dry. HEAD: Atraumatic. Normocephalic. EYES: Pupils equal and round. No scleral icterus. No injection or drainage. ENT: No nasal bleeding or discharge. Mucous membranes pink and moist. NECK: Trachea midline. No JVD. CARDIOVASCULAR: Regular rate and rhythm. RESPIRATORY: No accessory muscle use. Clear to auscultation. Breath sounds equal bilaterally. GASTROINTESTINAL: Abdomen soft, non-tender, nondistended. Hepatic and splenic margins not palpable. MUSCULOSKELETAL: Extremities without clubbing, cyanosis, or edema. No obvious deformities. NEUROLOGICAL: Awake and alert. No obvious cranial nerve deficits. Motor grossly within normal limits. Five out of 5 muscle strength in the arms and legs. Normal speech. PSYCHIATRIC: Appropriate mood and affect; insight and judgment normal. Laboratory Laboratory Tests Test 01/10/18 12:20 01/10/18 19:30 01/11/18 02:53 01/11/18 10:23 Activated Partial Thromboplast Time 37.7 SEC 40.2 SEC 37.8 SEC 41.5 SEC Assessment and Plan Problem List: (1) s/p cardiac arrest (2) Hyperlipemia ICD Codes: E78.5 - Hyperlipidemia, unspecified (3) Hypertension ICD Codes: I10 - Essential (primary) hypertension (4) ETOH abuse ICD Codes: F10.10 - Alcohol abuse, uncomplicated (5) Ventricular arrhythmia ICD Codes: I49.9 - Cardiac arrhythmia, unspecified Status: Acute (6) Syncope ICD Codes: R55 - Syncope and collapse Status: Acute (7) Heme + stool ICD Codes: R19.5 - Other fecal abnormalities Assessment and Plan 1) Cardiac arrest due to VT 2) VT due to ischemia 3) MVCAD/NSTEMI Plan for CABG on Monday Heparin drip 4) EF 50-55% 5) Asymptomatic bradycardia due to BB Con't pre-op for CABG 6) Hemoccult positive, other negative Hgb stable on heparin drip Problem Qualifiers (1) Syncope: Qualified Codes: R55 - Syncope and collapse Francois Vincent DO Jan 11, 2018 12:01
--- NOTE | 2018-01-11 12:35 | HHI.PR ---
Subjective Remarks Patient is resting comfortably in his chair and has no complaints of chest pain or dyspnea. His CABG surgery is planned for Monday. Objective Vitals Vital Signs Date Time Temp Pulse Resp B/P (MAP) Pulse Ox O2 Delivery O2 Flow Rate FiO2 01/11/18 12:00 56 01/11/18 11:00 52 01/11/18 11:00 97.9 54 20 159/77 (104) 94 01/11/18 10:10 55 01/11/18 09:00 60 01/11/18 08:00 64 01/11/18 07:40 48 01/11/18 07:37 97.9 48 20 137/67 (90) 95 01/11/18 06:00 48 01/11/18 05:00 50 01/11/18 04:00 62 01/11/18 03:00 97.6 52 22 140/67 (91) 92 01/11/18 03:00 52 01/11/18 02:00 52 01/11/18 01:00 52 01/11/18 00:00 56 01/10/18 23:00 97.6 54 24 137/67 (90) 93 01/10/18 23:00 54 01/10/18 22:00 52 01/10/18 21:58 96 2.00 01/10/18 21:00 56 01/10/18 20:14 58 01/10/18 20:00 54 01/10/18 19:11 65 01/10/18 19:00 97.6 65 22 136/69 (91) 95 01/10/18 18:00 65 01/10/18 17:00 59 01/10/18 16:00 63 01/10/18 15:00 81 01/10/18 15:00 97.9 64 18 142/74 (96) 94 01/10/18 14:00 52 01/10/18 13:00 65 I/O 01/10/18 01/10/18 01/10/18 01/11/18 01/11/18 01/11/18 07:00 15:00 23:00 07:00 15:00 23:00 Intake Total 240 ml 720 ml 240 ml Output Total 500 ml 1075 ml 900 ml Balance -260 ml -355 ml -660 ml Intake Oral 240 ml 720 ml 240 ml Output Urine Total 500 ml 1075 ml 900 ml # Voids 1 # Bowel Movements 0 1 Result Diagram: 01/10/18 0544 01/10/1844 Objective Remarks GENERAL: Well-nourished, well-developed patient. SKIN: Warm and dry. HEAD: Normocephalic. EYES: No scleral icterus. No injection or drainage. NECK: Supple, trachea midline. No JVD or lymphadenopathy. CARDIOVASCULAR: Regular rate and rhythm without murmurs, gallops, or rubs. RESPIRATORY: Breath sounds equal bilaterally. No accessory muscle use. GASTROINTESTINAL: Abdomen soft, non-tender, nondistended. EXTREMITIES: No cyanosis, or edema. NEUROLOGICAL: Awake, alert, and oriented x 3. Non-focal. A/P Problem List: (1) Syncope ICD Code: R55 - Syncope and collapse Status: Acute (2) Ventricular arrhythmia ICD Code: I49.9 - Cardiac arrhythmia, unspecified Status: Acute (3) s/p cardiac arrest (4) Hyperlipemia ICD Code: E78.5 - Hyperlipidemia, unspecified (5) Hypertension ICD Code: I10 - Essential (primary) hypertension Assessment and Plan NSTEMI s/p cardiac arrest, Ventricular arrhythmia Patient revived at the gym yesterday by bystanders using AED He states his chest is sore on the left from the shocks Denies any current chest pain or shortness of breath Multivessel disease present on angiogram Open heart surgery scheduled for 01/15/2018 Hypertension Patient started on metoprolol Metoprolol seems to have caused borderline but asymptomatic bradycardia Continue with metoprolol Heme occult positive stool Single test was positive, second sample is pending If second sample is positive we will consult GI Dyslipidemia Borderline elevation We will defer selection to cardiology DVT prophylaxis Heparin Problem Qualifiers (1) Syncope: Qualified Codes: R55 - Syncope and collapse Favian Brandon MD Jan 11, 2018 12:35
[2018-01-11] MEDS: amLODIPine BESYLATE 5 MG TAB PO SCH (15:37)
[2018-01-11] MEDS: ATORVASTATIN 80 MG TAB PO SCH (20:55)
[2018-01-12] VITALS (30 sets, daily range): BP systolic 124–157; BP diastolic 63–78; PULSE 46–75; RESP 16–22; TEMP 97.6–99; O2SAT 92–94
[2018-01-12 04:26] LABS: HEMATOCRIT 42.5 % (39.0-51.0); HEMOGLOBIN 14.8 GM/DL (13.0-17.0); MEAN CELL VOLUME 93.3 FL (80.0-100.0); MEAN CORPUSCULAR HEMOGLOBIN 32.4 PG (27.0-34.0); MEAN CORPUSCULAR HGB CONC 34.8 % (32.0-36.0); MEAN PLATELET VOLUME 8.1 FL (7.0-11.0); PLATELET COUNT 138 TH/MM3 (150-450); RED BLOOD COUNT 4.55 MIL/MM3 (4.50-5.90); RED CELL DISTRIBUTION WIDTH 14.4 % (11.6-17.2)
[2018-01-12] MEDS: THIAMINE HCL 100 MG TAB PO SCH (08:10)
[2018-01-12] MEDS: amLODIPine BESYLATE 5 MG TAB PO SCH (08:10)
[2018-01-12] MEDS: MULTIVITAMIN TAB PO SCH (08:11)
[2018-01-12] MEDS: PANTOPRAZOLE SOD 40 MG DELAYED RELEASE TAB PO SCH ×2 (08:11→21:58)
[2018-01-12] MEDS: METOPROLOL TARTRATE 25 MG TAB PO SCH ×2 (08:11→21:59)
[2018-01-12] MEDS: FOLIC ACID 1 MG TAB PO SCH (08:11)
[2018-01-12] MEDS: SODIUM CHLORIDE 0.9% FLUSH 10 ML FLUSH IV FLUSH SCH ×2 (08:11→22:01)
[2018-01-12] MEDS: ASPIRIN 81 MG CHEW TAB PO SCH (08:11)
--- NOTE | 2018-01-12 12:22 | PD.CAR.PN ---
CVT Progress Note Subjective/Hospital Course: 63-year-old male. The patient apparently was working out at the [facility] in [place] when he collapsed, witnessed cardiac arrest. The bystander said that he was unresponsive. They grabbed the AED, which advised them to shock. The shock was delivered. There was a physician at the scene and came in with the patient in the ambulance to help provide a history. The EKG was done. The patient was felt to be a posterior ST segment CO. A repeat EKG was done and it was felt to be a non-STEMI instead of a STEMI alert. Patient apparently had return of spontaneous circulation after the shock and 2 rounds of CPR. The patient denies having any history of cardiac disease, has not seen a physician in probably 20 years. He said he had a [employer] screening 3 years ago, which went well. Echo: EF 50%/ grade 1 diastolic dysfunction 01/10 pt pain free last pm , other than some soreness left upper chest from the shock scheduled for surgery on Monday on Heparin gtt 01/11 per nursing , pt had one + Hemoccult stool/ second pending , if + will need GI consult , on PPI no chest pain on heparin gtt 01/12 doing well , no new complaints second Hemoccult neg for surgery on Monday Objective: Vital Signs Date Time Temp Pulse Resp B/P (MAP) Pulse Ox O2 Delivery O2 Flow Rate FiO2 01/12/18 11:01 98.2 65 18 124/63 (83) 94 01/12/18 08:01 98.1 61 18 146/72 (96) 94 01/12/18 07:01 46 01/12/18 06:00 51 01/12/18 05:00 74 01/12/18 04:00 48 01/12/18 03:00 97.6 46 22 135/72 (93) 92 01/12/18 03:00 46 01/12/18 02:00 56 01/12/18 01:00 50 01/12/18 00:00 54 01/11/18 23:00 97.8 53 22 158/83 (108) 92 01/11/18 23:00 53 01/11/18 22:00 52 01/11/18 21:00 58 01/11/18 20:00 58 01/11/18 19:00 61 01/11/18 19:00 97.8 61 22 163/80 (107) 93 01/11/18 18:00 71 01/11/18 17:15 68 01/11/18 15:14 54 01/11/18 15:13 97.9 54 20 159/80 (106) 96 01/11/18 14:08 58 01/11/18 13:03 78 Labs: Laboratory Tests Test 01/12/18 03:40 White Blood Count 7.0 TH/MM3 (4.0-11.0) Red Blood Count 4.55 MIL/MM3 (4.50-5.90) Hemoglobin 14.8 GM/DL (13.0-17.0) Hematocrit 42.5 % (39.0-51.0) Mean Corpuscular Volume 93.3 FL (80.0-100.0) Mean Corpuscular Hemoglobin 32.4 PG (27.0-34.0) Mean Corpuscular Hemoglobin Concent 34.8 % (32.0-36.0) Red Cell Distribution Width 14.4 % (11.6-17.2) Platelet Count 138 TH/MM3 (150-450) Mean Platelet Volume 8.1 FL (7.0-11.0) Activated Partial Thromboplast Time 44.9 SEC (24.3-30.1) Result Diagram: 01/12/18 0340 01/10/18 0544 (1) s/p cardiac arrest Plan: on ASA, statin , BB , Heparin gtt for surgery on Monday (2) Hyperlipemia Plan: on statin dietary teaching (3) Hypertension (4) ETOH abuse Plan: on rally karen (5) Ventricular arrhythmia Plan: resolved (6) Syncope (7) Heme + stool Plan: await second Hemoccult, if + will need GI consult Problem Qualifiers (1) Syncope: Qualified Codes: R55 - Syncope and collapse Lilian Marquis Jan 12, 2018 12:22
--- NOTE | 2018-01-12 13:06 | PD.CARD.PN ---
Subjective Subjective Remarks No events overnight Doing well overall Objective Medications Current Medications Medications (Trade) Dose Ordered Sig/Edd Route Start Time Stop Time Status Last Admin (Aspirin Chew) 81 mg DAILY PO 01/10/18 09:00 01/12/18 08:11 (Lopressor) 12.5 mg BID PO 01/09/18 21:00 01/12/18 08:11 (Lipitor) 80 mg HS PO 01/09/18 21:00 01/11/18 20:55 (Heparin Inj) 5,000 units UNSCH PRN IV PUSH 01/09/18 18:15 (Heparin Inj) 2,500 units UNSCH PRN IV PUSH 01/09/18 18:15 01/11/18 15:50 Heparin Sodium/ Dextrose 250 ml @ 10 mls/hr TITRATE PRN IV 01/09/18 12:30 01/10/18 06:43 (Pill Splitter) 1 ea UNSCH PRN OTHER 01/09/18 14:30 (NS Flush) 2 ml BID IV FLUSH 01/09/18 21:00 01/12/18 08:11 (NS Flush) 2 ml UNSCH PRN IV FLUSH 01/09/18 15:00 Papaverine HCl 60 mg/Nitroglycerin 100 mcg/Diltiazem HCl 100 mg/Sodium Chloride 100 ml @ 0 mls/hr SACK SEWER IRRIGATION 01/09/18 15:00 01/16/18 14:59 Cefazolin Sodium 500 mg/Sodium Chloride 505 ml @ 0 mls/hr SACK SEWER IRRIGATION 01/09/18 15:00 01/16/18 14:59 Cefazolin Sodium/ Dextrose 50 ml @ 150 mls/hr SACK SEWER IV 01/09/18 15:00 01/16/18 14:59 (Lopressor) 12.5 mg SACK SEWER PO 01/09/18 15:00 01/16/18 14:59 (Hibiclens 4% Top Soln) 1 applic SACK SEWER TOPICAL 01/09/18 15:00 01/16/18 14:59 Insulin Human Regular 100 units/ Sodium Chloride 100 ml @ 3 mls/hr TITRATE PRN IV 01/09/18 15:00 01/16/18 14:59 (D50w (Vial) Inj) 50 ml UNSCH PRN IV PUSH 01/09/18 15:00 (Theragran) 1 tab DAILY PO 01/10/18 09:00 01/12/18 08:11 (Folate) 1 mg DAILY PO 01/10/18 09:00 01/12/18 08:11 (Vitamin B1) 100 mg DAILY PO 01/10/18 09:00 01/12/18 08:10 (Protonix) 40 mg Q12HR PO 01/11/18 11:00 01/12/18 08:11 (Norvasc) 5 mg DAILY PO 01/11/18 15:30 01/12/18 08:10 Vital Signs / I&O Vital Signs Date Time Temp Pulse Resp B/P (MAP) Pulse Ox O2 Delivery O2 Flow Rate FiO2 01/12/18 12:01 56 01/12/18 11:01 98.2 65 18 124/63 (83) 94 01/12/18 11:00 50 01/12/18 10:00 50 01/12/18 09:00 56 01/12/18 08:01 98.1 61 18 146/72 (96) 94 01/12/18 08:00 66 01/12/18 07:01 46 01/12/18 06:00 51 01/12/18 05:00 74 01/12/18 04:00 48 01/12/18 03:00 97.6 46 22 135/72 (93) 92 01/12/18 03:00 46 01/12/18 02:00 56 01/12/18 01:00 50 01/12/18 00:00 54 01/11/18 23:00 97.8 53 22 158/83 (108) 92 01/11/18 23:00 53 01/11/18 22:00 52 01/11/18 21:00 58 01/11/18 20:00 58 01/11/18 19:00 61 01/11/18 19:00 97.8 61 22 163/80 (107) 93 01/11/18 18:00 71 01/11/18 17:15 68 01/11/18 15:14 54 01/11/18 15:13 97.9 54 20 159/80 (106) 96 01/11/18 14:08 58 I/O 01/11/18 01/11/18 01/11/18 01/12/18 01/12/18 01/12/18 07:00 15:00 23:00 07:00 15:00 23:00 Intake Total 240 ml 360 ml 432 ml Output Total 900 ml 1900 ml 1300 ml Balance -660 ml -1540 ml -868 ml Intake Oral 240 ml 360 ml 240 ml IV Total 192 ml Output Urine Total 900 ml 1900 ml 1300 ml # Bowel Movements 3 Physical Exam GENERAL: NAD, AAOx3 SKIN: Warm and dry. HEAD: Atraumatic. Normocephalic. EYES: Pupils equal and round. No scleral icterus. No injection or drainage. ENT: No nasal bleeding or discharge. Mucous membranes pink and moist. NECK: Trachea midline. No JVD. CARDIOVASCULAR: Regular rate and rhythm. RESPIRATORY: No accessory muscle use. Clear to auscultation. Breath sounds equal bilaterally. GASTROINTESTINAL: Abdomen soft, non-tender, nondistended. Hepatic and splenic margins not palpable. MUSCULOSKELETAL: Extremities without clubbing, cyanosis, or edema. No obvious deformities. NEUROLOGICAL: Awake and alert. No obvious cranial nerve deficits. Motor grossly within normal limits. Five out of 5 muscle strength in the arms and legs. Normal speech. PSYCHIATRIC: Appropriate mood and affect; insight and judgment normal. Laboratory Laboratory Tests Test 01/11/18 14:47 01/11/18 21:41 01/12/18 03:40 Activated Partial Thromboplast Time 39.7 SEC 45.3 SEC 44.9 SEC White Blood Count 7.0 TH/MM3 Red Blood Count 4.55 MIL/MM3 Hemoglobin 14.8 GM/DL Hematocrit 42.5 % Mean Corpuscular Volume 93.3 FL Mean Corpuscular Hemoglobin 32.4 PG Mean Corpuscular Hemoglobin Concent 34.8 % Red Cell Distribution Width 14.4 % Platelet Count 138 TH/MM3 Mean Platelet Volume 8.1 FL Assessment and Plan Problem List: (1) s/p cardiac arrest (2) Hyperlipemia ICD Codes: E78.5 - Hyperlipidemia, unspecified (3) Hypertension ICD Codes: I10 - Essential (primary) hypertension (4) ETOH abuse ICD Codes: F10.10 - Alcohol abuse, uncomplicated (5) Ventricular arrhythmia ICD Codes: I49.9 - Cardiac arrhythmia, unspecified Status: Acute (6) Syncope ICD Codes: R55 - Syncope and collapse Status: Acute (7) Heme + stool ICD Codes: R19.5 - Other fecal abnormalities Assessment and Plan 1) Cardiac arrest due to VT 2) VT due to ischemia 3) MVCAD/NSTEMI Plan for CABG on Monday Heparin drip 4) EF 50-55% 5) Asymptomatic bradycardia due to BB Con't pre-op for CABG 6) Hemoccult positive, other negative Hgb stable on heparin drip Problem Qualifiers (1) Syncope: Qualified Codes: R55 - Syncope and collapse Francois Vincent DO Jan 12, 2018 13:06
[2018-01-12] MEDS: HEPARIN-D5W 25,000 U/250 ML 250 ML IV PRN (13:07)
--- NOTE | 2018-01-12 13:24 | HHI.PR ---
Subjective Remarks Patient has no complaints, denies chest pain or shortness of breath. He had a few questions from his . Objective Vitals Vital Signs Date Time Temp Pulse Resp B/P (MAP) Pulse Ox O2 Delivery O2 Flow Rate FiO2 01/12/18 12:01 56 01/12/18 11:01 98.2 65 18 124/63 (83) 94 01/12/18 11:00 50 01/12/18 10:00 50 01/12/18 09:00 56 01/12/18 08:01 98.1 61 18 146/72 (96) 94 01/12/18 08:00 66 01/12/18 07:01 46 01/12/18 06:00 51 01/12/18 05:00 74 01/12/18 04:00 48 01/12/18 03:00 97.6 46 22 135/72 (93) 92 01/12/18 03:00 46 01/12/18 02:00 56 01/12/18 01:00 50 01/12/18 00:00 54 01/11/18 23:00 97.8 53 22 158/83 (108) 92 01/11/18 23:00 53 01/11/18 22:00 52 01/11/18 21:00 58 01/11/18 20:00 58 01/11/18 19:00 61 01/11/18 19:00 97.8 61 22 163/80 (107) 93 01/11/18 18:00 71 01/11/18 17:15 68 01/11/18 15:14 54 01/11/18 15:13 97.9 54 20 159/80 (106) 96 01/11/18 14:08 58 I/O 01/11/18 01/11/18 01/11/18 01/12/18 01/12/18 01/12/18 07:00 15:00 23:00 07:00 15:00 23:00 Intake Total 240 ml 360 ml 432 ml Output Total 900 ml 1900 ml 1300 ml Balance -660 ml -1540 ml -868 ml Intake Oral 240 ml 360 ml 240 ml IV Total 192 ml Output Urine Total 900 ml 1900 ml 1300 ml # Bowel Movements 3 Result Diagram: 01/12/18 0340 01/10/18 0544 Objective Remarks GENERAL: Well-nourished, well-developed patient. SKIN: Warm and dry. HEAD: Normocephalic. EYES: No scleral icterus. No injection or drainage. NECK: Supple, trachea midline. No JVD or lymphadenopathy. CARDIOVASCULAR: Regular rate and rhythm without murmurs, gallops, or rubs. RESPIRATORY: Breath sounds equal bilaterally. No accessory muscle use. GASTROINTESTINAL: Abdomen soft, non-tender, nondistended. EXTREMITIES: No cyanosis, or edema. NEUROLOGICAL: Awake, alert, and oriented x 3. Non-focal. A/P Problem List: (1) Syncope ICD Code: R55 - Syncope and collapse Status: Acute (2) Ventricular arrhythmia ICD Code: I49.9 - Cardiac arrhythmia, unspecified Status: Acute (3) s/p cardiac arrest (4) Hyperlipemia ICD Code: E78.5 - Hyperlipidemia, unspecified (5) Hypertension ICD Code: I10 - Essential (primary) hypertension Assessment and Plan NSTEMI s/p cardiac arrest, Ventricular arrhythmia Patient revived at the gym yesterday by bystanders using AED Denies any current chest pain or shortness of breath Multivessel disease present on angiogram Open heart surgery scheduled for 01/15/2018 Hypertension Continue with metoprolol Heme occult positive stool Single test was positive, second sample is pending If second sample is positive we will consult GI Dyslipidemia Borderline elevation We will defer selection to cardiology DVT prophylaxis Heparin Problem Qualifiers (1) Syncope: Qualified Codes: R55 - Syncope and collapse Favian Brandon MD Jan 12, 2018 13:24
[2018-01-12] MEDS: ATORVASTATIN 80 MG TAB PO SCH (21:58)
[2018-01-13] VITALS (28 sets, daily range): BP systolic 132–155; BP diastolic 70–86; PULSE 45–82; RESP 16–20; TEMP 97.7–98.2; O2SAT 92–94
[2018-01-13] MEDS: HEPARIN-D5W 25,000 U/250 ML 250 ML IV PRN ×2 (04:21→18:48)
[2018-01-13] MEDS: THIAMINE HCL 100 MG TAB PO SCH (08:57)
[2018-01-13] MEDS: MULTIVITAMIN TAB PO SCH (08:57)
[2018-01-13] MEDS: amLODIPine BESYLATE 5 MG TAB PO SCH (08:57)
[2018-01-13] MEDS: PANTOPRAZOLE SOD 40 MG DELAYED RELEASE TAB PO SCH ×2 (08:58→20:38)
[2018-01-13] MEDS: METOPROLOL TARTRATE 25 MG TAB PO SCH ×2 (08:58→20:38)
[2018-01-13] MEDS: ASPIRIN 81 MG CHEW TAB PO SCH (08:58)
[2018-01-13] MEDS: FOLIC ACID 1 MG TAB PO SCH (08:58)
[2018-01-13] MEDS: SODIUM CHLORIDE 0.9% FLUSH 10 ML FLUSH IV FLUSH SCH ×2 (09:00→20:38)
--- NOTE | 2018-01-13 14:13 | HHI.PR ---
Addendum to Inpatient Note Addendum Reason: Additional Documentation Additional Information Patient was on phone today, same chair. I added BMP and TSH to his bloodwork for tomorrow (including CBC, INR). Favian Brandon MD Jan 13, 2018 14:13
--- NOTE | 2018-01-13 16:34 | PD.CARD.PN ---
Subjective Subjective Remarks No events overnight Doing well overall Objective Medications Current Medications Medications (Trade) Dose Ordered Sig/Edd Route Start Time Stop Time Status Last Admin (Aspirin Chew) 81 mg DAILY PO 01/10/18 09:00 01/13/18 08:58 (Lopressor) 12.5 mg BID PO 01/09/18 21:00 01/13/18 08:58 (Lipitor) 80 mg HS PO 01/09/18 21:00 01/12/18 21:58 (Heparin Inj) 5,000 units UNSCH PRN IV PUSH 01/09/18 18:15 (Heparin Inj) 2,500 units UNSCH PRN IV PUSH 01/09/18 18:15 01/11/18 15:50 Heparin Sodium/ Dextrose 250 ml @ 10 mls/hr TITRATE PRN IV 01/09/18 12:30 01/13/18 04:21 (Pill Splitter) 1 ea UNSCH PRN OTHER 01/09/18 14:30 (NS Flush) 2 ml BID IV FLUSH 01/09/18 21:00 01/13/18 09:00 (NS Flush) 2 ml UNSCH PRN IV FLUSH 01/09/18 15:00 Papaverine HCl 60 mg/Nitroglycerin 100 mcg/Diltiazem HCl 100 mg/Sodium Chloride 100 ml @ 0 mls/hr GRAIN PICKER IRRIGATION 01/09/18 15:00 01/16/18 14:59 Cefazolin Sodium 500 mg/Sodium Chloride 505 ml @ 0 mls/hr GRAIN PICKER IRRIGATION 01/09/18 15:00 01/16/18 14:59 Cefazolin Sodium/ Dextrose 50 ml @ 150 mls/hr GRAIN PICKER IV 01/09/18 15:00 01/16/18 14:59 (Lopressor) 12.5 mg GRAIN PICKER PO 01/09/18 15:00 01/16/18 14:59 (Hibiclens 4% Top Soln) 1 applic GRAIN PICKER TOPICAL 01/09/18 15:00 01/16/18 14:59 Insulin Human Regular 100 units/ Sodium Chloride 100 ml @ 3 mls/hr TITRATE PRN IV 01/09/18 15:00 01/16/18 14:59 (D50w (Vial) Inj) 50 ml UNSCH PRN IV PUSH 01/09/18 15:00 (Theragran) 1 tab DAILY PO 01/10/18 09:00 01/13/18 08:57 (Folate) 1 mg DAILY PO 01/10/18 09:00 01/13/18 08:58 (Vitamin B1) 100 mg DAILY PO 01/10/18 09:00 01/13/18 08:57 (Protonix) 40 mg Q12HR PO 01/11/18 11:00 01/13/18 08:58 (Norvasc) 5 mg DAILY PO 01/11/18 15:30 01/13/18 08:57 Vital Signs / I&O Vital Signs Date Time Temp Pulse Resp B/P (MAP) Pulse Ox O2 Delivery O2 Flow Rate FiO2 01/13/18 16:01 50 01/13/18 15:15 97.7 52 18 139/79 (99) 92 01/13/18 15:00 53 01/13/18 14:00 50 01/13/18 13:00 48 01/13/18 12:01 50 01/13/18 11:01 98.2 55 18 146/70 (95) 93 01/13/18 11:00 79 01/13/18 10:00 48 01/13/18 09:00 72 01/13/18 08:01 98.2 51 18 135/76 (95) 93 01/13/18 08:00 50 01/13/18 07:00 51 01/13/18 06:00 76 01/13/18 05:00 50 01/13/18 04:15 50 16 134/75 (94) 94 01/13/18 04:00 82 01/13/18 03:00 45 01/13/18 02:00 48 01/13/18 01:00 62 01/13/18 00:00 50 01/12/18 23:15 97.8 50 16 157/74 (101) 92 01/12/18 23:00 75 01/12/18 22:00 54 01/12/18 21:50 57 01/12/18 21:00 48 01/12/18 20:00 50 01/12/18 19:45 98.5 58 16 136/70 (92) 93 01/12/18 19:00 51 01/12/18 18:01 54 01/12/18 17:00 54 I/O 6/8/18 601/12/18 01/13/18 01/13/18 01/13/18 07:00 15:00 23:00 07:00 15:00 23:00 Intake Total 432 ml 720 ml 730 ml Output Total 1300 ml 1250 ml 1200 ml Balance -868 ml -530 ml -470 ml Intake Oral 240 ml 720 ml 480 ml IV Total 192 ml 250 ml Output Urine Total 1300 ml 1250 ml 1200 ml # Bowel Movements 0 1 Physical Exam GENERAL: NAD, AAOx3 SKIN: Warm and dry. HEAD: Atraumatic. Normocephalic. EYES: Pupils equal and round. No scleral icterus. No injection or drainage. ENT: No nasal bleeding or discharge. Mucous membranes pink and moist. NECK: Trachea midline. No JVD. CARDIOVASCULAR: Regular rate and rhythm. RESPIRATORY: No accessory muscle use. Clear to auscultation. Breath sounds equal bilaterally. GASTROINTESTINAL: Abdomen soft, non-tender, nondistended. Hepatic and splenic margins not palpable. MUSCULOSKELETAL: Extremities without clubbing, cyanosis, or edema. No obvious deformities. NEUROLOGICAL: Awake and alert. No obvious cranial nerve deficits. Motor grossly within normal limits. Five out of 5 muscle strength in the arms and legs. Normal speech. PSYCHIATRIC: Appropriate mood and affect; insight and judgment normal. Laboratory Laboratory Tests Test 01/13/18 05:23 Activated Partial Thromboplast Time 49.0 SEC Assessment and Plan Problem List: (1) s/p cardiac arrest (2) Hyperlipemia ICD Codes: E78.5 - Hyperlipidemia, unspecified (3) Hypertension ICD Codes: I10 - Essential (primary) hypertension (4) ETOH abuse ICD Codes: F10.10 - Alcohol abuse, uncomplicated (5) Ventricular arrhythmia ICD Codes: I49.9 - Cardiac arrhythmia, unspecified Status: Acute (6) Syncope ICD Codes: R55 - Syncope and collapse Status: Acute (7) Heme + stool ICD Codes: R19.5 - Other fecal abnormalities Assessment and Plan 1) Cardiac arrest due to VT 2) VT due to ischemia 3) MVCAD/NSTEMI Plan for CABG on Monday Heparin drip 4) EF 50-55% 5) Asymptomatic bradycardia due to BB Con't pre-op for CABG 6) Hemoccult positive, other negative Hgb stable on heparin drip 7) He asked about walking around the floor Overall think walking around the room is ok, just concern for walking around the floor if he gets ischemia so he will hold off on walking around the floor Problem Qualifiers (1) Syncope: Qualified Codes: R55 - Syncope and collapse Francois Vincent DO Jan 13, 2018 16:34
[2018-01-13] MEDS: ATORVASTATIN 80 MG TAB PO SCH (20:38)
[2018-01-14] VITALS (29 sets, daily range): BP systolic 120–157; BP diastolic 57–79; PULSE 46–74; RESP 16–19; TEMP 97.3–98.6; O2SAT 92–94
[2018-01-14 04:59] LABS: INTERNATIONAL NORMALIZED RATIO 1.1 RATIO; PROTHROMBIN TIME - PATIENT 11.4 SEC (9.8-11.6)
[2018-01-14 05:01] LABS: AUTOMATED NEUTROPHIL # 4.1 TH/MM3 (1.8-7.7); BASOPHIL # 0.1 TH/MM3 (0-0.2); BASOPHIL % 0.8 % (0.0-2.0); EOSINOPHIL # 0.3 TH/MM3 (0-0.4); EOSINOPHIL % 4.1 % (0.0-4.0); HEMATOCRIT 43.6 % (39.0-51.0); HEMOGLOBIN 15.3 GM/DL (13.0-17.0); LYMPH % 26.8 % (9.0-44.0); LYMPHOCYTE # 1.8 TH/MM3 (1.0-4.8); MEAN CELL VOLUME 92.1 FL (80.0-100.0); MEAN CORPUSCULAR HEMOGLOBIN 32.4 PG (27.0-34.0); MEAN CORPUSCULAR HGB CONC 35.1 % (32.0-36.0); MEAN PLATELET VOLUME 8.7 FL (7.0-11.0); MONO % 7.1 % (0.0-8.0); MONOCYTE # 0.5 TH/MM3 (0-0.9); NEUT % 61.2 % (16.0-70.0); PLATELET COUNT 126 TH/MM3 (150-450); RED BLOOD COUNT 4.73 MIL/MM3 (4.50-5.90); RED CELL DISTRIBUTION WIDTH 14.2 % (11.6-17.2); WHITE BLOOD COUNT 6.6 TH/MM3 (4.0-11.0)
[2018-01-14] MEDS: MULTIVITAMIN TAB PO SCH (08:43)
[2018-01-14] MEDS: THIAMINE HCL 100 MG TAB PO SCH (08:43)
[2018-01-14] MEDS: PANTOPRAZOLE SOD 40 MG DELAYED RELEASE TAB PO SCH ×2 (08:44→21:38)
[2018-01-14] MEDS: METOPROLOL TARTRATE 25 MG TAB PO SCH ×2 (08:44→21:37)
[2018-01-14] MEDS: amLODIPine BESYLATE 5 MG TAB PO SCH (08:44)
[2018-01-14] MEDS: SODIUM CHLORIDE 0.9% FLUSH 10 ML FLUSH IV FLUSH SCH ×2 (08:44→21:39)
[2018-01-14] MEDS: ASPIRIN 81 MG CHEW TAB PO SCH (08:44)
[2018-01-14] MEDS: FOLIC ACID 1 MG TAB PO SCH (08:44)
--- NOTE | 2018-01-14 09:20 | PD.CAR.PN ---
CVT Progress Note Subjective/Hospital Course: 63-year-old male. The patient apparently was working out at the [facility] in [place] when he collapsed, witnessed cardiac arrest. The bystander said that he was unresponsive. They grabbed the AED, which advised them to shock. The shock was delivered. There was a physician at the scene and came in with the patient in the ambulance to help provide a history. The EKG was done. The patient was felt to be a posterior ST segment [place]. A repeat EKG was done and it was felt to be a non-STEMI instead of a STEMI alert. Patient apparently had return of spontaneous circulation after the shock and 2 rounds of CPR. The patient denies having any history of cardiac disease, has not seen a physician in probably 20 years. He said he had a [employer] screening 3 years ago, which went well. Echo: EF 50%/ grade 1 diastolic dysfunction 01/10 pt pain free last pm , other than some soreness left upper chest from the shock scheduled for surgery on Monday on Heparin gtt 01/11 per nursing , pt had one + Hemoccult stool/ second pending , if + will need GI consult , on PPI no chest pain on heparin gtt 01/12 doing well , no new complaints second Hemoccult neg for surgery on Sunday 01/14 CP free OR in am Objective: Vital Signs Date Time Temp Pulse Resp B/P (MAP) Pulse Ox O2 Delivery O2 Flow Rate FiO2 01/14/18 08:01 98.5 50 18 147/73 (97) 93 01/14/18 07:01 54 01/14/18 06:20 55 01/14/18 05:19 51 01/14/18 04:47 59 01/14/18 03:11 51 01/14/18 03:11 97.3 50 19 144/70 (94) 93 01/14/18 02:07 46 01/14/18 01:39 48 01/14/18 00:31 70 01/13/18 23:03 50 01/13/18 23:03 98.0 51 20 155/83 (107) 94 01/13/18 22:00 79 01/13/18 21:31 54 01/13/18 20:00 60 01/13/18 19:15 53 01/13/18 19:15 98.2 56 19 132/86 (101) 93 01/13/18 18:01 56 01/13/18 17:00 52 01/13/18 16:01 50 01/13/18 15:15 97.7 52 18 139/79 (99) 92 01/13/18 15:00 53 01/13/18 14:00 50 01/13/18 13:00 48 01/13/18 12:01 50 01/13/18 11:01 98.2 55 18 146/70 (95) 93 01/13/18 11:00 79 01/13/18 10:00 48 Labs: Laboratory Tests Test 01/14/18 03:49 White Blood Count 6.6 TH/MM3 (4.0-11.0) Red Blood Count 4.73 MIL/MM3 (4.50-5.90) Hemoglobin 15.3 GM/DL (13.0-17.0) Hematocrit 43.6 % (39.0-51.0) Mean Corpuscular Volume 92.1 FL (80.0-100.0) Mean Corpuscular Hemoglobin 32.4 PG (27.0-34.0) Mean Corpuscular Hemoglobin Concent 35.1 % (32.0-36.0) Red Cell Distribution Width 14.2 % (11.6-17.2) Platelet Count 126 TH/MM3 (150-450) Mean Platelet Volume 8.7 FL (7.0-11.0) Neutrophils (%) (Auto) 61.2 % (16.0-70.0) Lymphocytes (%) (Auto) 26.8 % (9.0-44.0) Monocytes (%) (Auto) 7.1 % (0.0-8.0) Eosinophils (%) (Auto) 4.1 % (0.0-4.0) Basophils (%) (Auto) 0.8 % (0.0-2.0) Neutrophils # (Auto) 4.1 TH/MM3 (1.8-7.7) Lymphocytes # (Auto) 1.8 TH/MM3 (1.0-4.8) Monocytes # (Auto) 0.5 TH/MM3 (0-0.9) Eosinophils # (Auto) 0.3 TH/MM3 (0-0.4) Basophils # (Auto) 0.1 TH/MM3 (0-0.2) CBC Comment DIFF FINAL Differential Comment Hematology Comments Prothrombin Time 11.4 SEC (9.8-11.6) Prothromb Time International Ratio 1.1 RATIO Activated Partial Thromboplast Time 42.4 SEC (24.3-30.1) Result Diagram: 01/14/18 0349 01/10/18 0544 (1) s/p cardiac arrest (2) Hyperlipemia (3) Hypertension (4) ETOH abuse (5) Ventricular arrhythmia (6) Syncope (7) Heme + stool Problem Qualifiers (1) Syncope: Qualified Codes: R55 - Syncope and collapse Jin Marquez MD Jan 14, 2018 09:20
[2018-01-14 09:52] LABS: ALBUMIN 3.7 GM/DL (3.4-5.0); AST (GOT) 44 U/L (15-37); BICARBONATE 23.3 MEQ/L (21.0-32.0); BLOOD UREA NITROGEN 14 MG/DL (7-18); CALCIUM 9.2 MG/DL (8.5-10.1); CHLORIDE 105 MEQ/L (98-107); CREATININE 1.09 MG/DL (0.60-1.30); GLOMERULAR FILTRATION RATE 68 ML/MIN (>89); GLUCOSE,RANDOM 103 MG/DL (74-106); SODIUM (NA) 139 MEQ/L (136-145)
[2018-01-14 09:53] LABS: ALT (GPT) 88 U/L (12-78)
[2018-01-14 10:02] LABS: ALKALINE PHOSPHATASE 83 U/L (45-117); TOTAL BILIRUBIN ADULT 0.9 MG/DL (0.2-1.0); TOTAL PROTEIN 7.4 GM/DL (6.4-8.2)
--- NOTE | 2018-01-14 11:44 | PD.CARD.PN ---
Subjective Subjective Remarks No events overnight Doing well overall Plan for surgery in morning Objective Medications Current Medications Medications (Trade) Dose Ordered Sig/Edd Route Start Time Stop Time Status Last Admin (Aspirin Chew) 81 mg DAILY PO 01/10/18 09:00 01/14/18 08:44 (Lopressor) 12.5 mg BID PO 01/09/18 21:00 01/14/18 08:44 (Lipitor) 80 mg HS PO 01/09/18 21:00 01/13/18 20:38 (Heparin Inj) 5,000 units UNSCH PRN IV PUSH 01/09/18 18:15 (Heparin Inj) 2,500 units UNSCH PRN IV PUSH 01/09/18 18:15 01/11/18 15:50 Heparin Sodium/ Dextrose 250 ml @ 10 mls/hr TITRATE PRN IV 01/09/18 12:30 01/13/18 18:48 (Pill Splitter) 1 ea UNSCH PRN OTHER 01/09/18 14:30 (NS Flush) 2 ml BID IV FLUSH 01/09/18 21:00 01/14/18 08:44 (NS Flush) 2 ml UNSCH PRN IV FLUSH 01/09/18 15:00 Papaverine HCl 60 mg/Nitroglycerin 100 mcg/Diltiazem HCl 100 mg/Sodium Chloride 100 ml @ 0 mls/hr BILLING DEPARTMENT SUPERVISOR IRRIGATION 01/09/18 15:00 01/16/18 14:59 Cefazolin Sodium 500 mg/Sodium Chloride 505 ml @ 0 mls/hr BILLING DEPARTMENT SUPERVISOR IRRIGATION 01/09/18 15:00 01/16/18 14:59 Cefazolin Sodium/ Dextrose 50 ml @ 150 mls/hr BILLING DEPARTMENT SUPERVISOR IV 01/09/18 15:00 01/16/18 14:59 (Lopressor) 12.5 mg BILLING DEPARTMENT SUPERVISOR PO 01/09/18 15:00 01/16/18 14:59 (Hibiclens 4% Top Soln) 1 applic BILLING DEPARTMENT SUPERVISOR TOPICAL 01/09/18 15:00 01/16/18 14:59 Insulin Human Regular 100 units/ Sodium Chloride 100 ml @ 3 mls/hr TITRATE PRN IV 01/09/18 15:00 01/16/18 14:59 (D50w (Vial) Inj) 50 ml UNSCH PRN IV PUSH 01/09/18 15:00 (Theragran) 1 tab DAILY PO 01/10/18 09:00 01/14/18 08:43 (Folate) 1 mg DAILY PO 01/10/18 09:00 01/14/18 08:44 (Vitamin B1) 100 mg DAILY PO 01/10/18 09:00 01/14/18 08:43 (Protonix) 40 mg Q12HR PO 01/11/18 11:00 01/14/18 08:44 (Norvasc) 5 mg DAILY PO 01/11/18 15:30 01/14/18 08:44 Vital Signs / I&O Vital Signs Date Time Temp Pulse Resp B/P (MAP) Pulse Ox O2 Delivery O2 Flow Rate FiO2 01/14/18 11:30 98.5 48 18 129/60 (83) 92 01/14/18 08:01 98.5 50 18 147/73 (97) 93 01/14/18 07:01 54 01/14/18 06:20 55 01/14/18 05:19 51 01/14/18 04:47 59 01/14/18 03:11 51 01/14/18 03:11 97.3 50 19 144/70 (94) 93 01/14/18 02:07 46 01/14/18 01:39 48 01/14/18 00:31 70 01/13/18 23:03 50 01/13/18 23:03 98.0 51 20 155/83 (107) 94 01/13/18 22:00 79 01/13/18 21:31 54 01/13/18 20:00 60 01/13/18 19:15 53 01/13/18 19:15 98.2 56 19 132/86 (101) 93 01/13/18 18:01 56 01/13/18 17:00 52 01/13/18 16:01 50 01/13/18 15:15 97.7 52 18 139/79 (99) 92 01/13/18 15:00 53 01/13/18 14:00 50 01/13/18 13:00 48 01/13/18 12:01 50 I/O 01/13/18 01/13/18 01/13/18 01/14/18 01/14/18 01/14/18 07:00 15:00 23:00 07:00 15:00 23:00 Intake Total 730 ml 720 ml 480 ml Output Total 1200 ml 1350 ml 1050 ml Balance -470 ml -630 ml -570 ml Intake Oral 480 ml 720 ml 480 ml IV Total 250 ml Output Urine Total 1200 ml 1350 ml 1050 ml # Voids 7 # Bowel Movements 1 2 1 Physical Exam GENERAL: NAD, AAOx3 SKIN: Warm and dry. HEAD: Atraumatic. Normocephalic. EYES: Pupils equal and round. No scleral icterus. No injection or drainage. ENT: No nasal bleeding or discharge. Mucous membranes pink and moist. NECK: Trachea midline. No JVD. CARDIOVASCULAR: Regular rate and rhythm. RESPIRATORY: No accessory muscle use. Clear to auscultation. Breath sounds equal bilaterally. GASTROINTESTINAL: Abdomen soft, non-tender, nondistended. Hepatic and splenic margins not palpable. MUSCULOSKELETAL: Extremities without clubbing, cyanosis, or edema. No obvious deformities. NEUROLOGICAL: Awake and alert. No obvious cranial nerve deficits. Motor grossly within normal limits. Five out of 5 muscle strength in the arms and legs. Normal speech. PSYCHIATRIC: Appropriate mood and affect; insight and judgment normal. Laboratory Laboratory Tests Test 01/14/18 03:49 01/14/18 08:30 White Blood Count 6.6 TH/MM3 Red Blood Count 4.73 MIL/MM3 Hemoglobin 15.3 GM/DL Hematocrit 43.6 % Mean Corpuscular Volume 92.1 FL Mean Corpuscular Hemoglobin 32.4 PG Mean Corpuscular Hemoglobin Concent 35.1 % Red Cell Distribution Width 14.2 % Platelet Count 126 TH/MM3 Mean Platelet Volume 8.7 FL Neutrophils (%) (Auto) 61.2 % Lymphocytes (%) (Auto) 26.8 % Monocytes (%) (Auto) 7.1 % Eosinophils (%) (Auto) 4.1 % Basophils (%) (Auto) 0.8 % Neutrophils # (Auto) 4.1 TH/MM3 Lymphocytes # (Auto) 1.8 TH/MM3 Monocytes # (Auto) 0.5 TH/MM3 Eosinophils # (Auto) 0.3 TH/MM3 Basophils # (Auto) 0.1 TH/MM3 CBC Comment DIFF FINAL Differential Comment Hematology Comments Prothrombin Time 11.4 SEC Prothromb Time International Ratio 1.1 RATIO Activated Partial Thromboplast Time 42.4 SEC Blood Urea Nitrogen 14 MG/DL Creatinine 1.09 MG/DL Random Glucose 103 MG/DL Total Protein 7.4 GM/DL Albumin 3.7 GM/DL Calcium Level 9.2 MG/DL Alkaline Phosphatase 83 U/L Aspartate Amino Transf (AST/SGOT) 44 U/L Alanine Aminotransferase (ALT/SGPT) 88 U/L Total Bilirubin 0.9 MG/DL Sodium Level 139 MEQ/L Potassium Level 3.9 MEQ/L Chloride Level 105 MEQ/L Carbon Dioxide Level 23.3 MEQ/L Anion Gap 11 MEQ/L Estimat Glomerular Filtration Rate 68 ML/MIN Thyroid Stimulating Hormone 3rd Gen 8.050 uIU/ML Assessment and Plan Problem List: (1) s/p cardiac arrest (2) Hyperlipemia ICD Codes: E78.5 - Hyperlipidemia, unspecified (3) Hypertension ICD Codes: I10 - Essential (primary) hypertension (4) ETOH abuse ICD Codes: F10.10 - Alcohol abuse, uncomplicated (5) Ventricular arrhythmia ICD Codes: I49.9 - Cardiac arrhythmia, unspecified Status: Acute (6) Syncope ICD Codes: R55 - Syncope and collapse Status: Acute (7) Heme + stool ICD Codes: R19.5 - Other fecal abnormalities Assessment and Plan 1) Cardiac arrest due to VT 2) VT due to ischemia 3) MVCAD/NSTEMI Plan for CABG tomorrow Heparin drip 4) EF 50-55% 5) Asymptomatic bradycardia due to BB Con't pre-op for CABG 6) Hemoccult positive, other negative Hgb stable on heparin drip 7) He asked about walking around the floor Overall think walking around the room is ok, just concern for walking around the floor if he gets ischemia so he will hold off on walking around the floor Problem Qualifiers (1) Syncope: Qualified Codes: R55 - Syncope and collapse Francois Vincent DO Jan 14, 2018 11:44
[2018-01-14] MEDS: HEPARIN-D5W 25,000 U/250 ML 250 ML IV PRN (12:37)
--- NOTE | 2018-01-14 15:34 | HHI.PR ---
Subjective Remarks Patient has no complaints today. He understands he will be undergoing an open heart surgery tomorrow and he feels mentally and physically prepared for that. Objective Vitals Vital Signs Date Time Temp Pulse Resp B/P (MAP) Pulse Ox O2 Delivery O2 Flow Rate FiO2 01/14/18 15:16 98.6 52 18 126/60 (82) 93 01/14/18 14:01 52 01/14/18 13:01 50 01/14/18 12:00 52 01/14/18 11:30 98.5 48 18 129/60 (83) 92 01/14/18 11:00 48 01/14/18 10:00 50 01/14/18 09:00 52 01/14/18 08:01 98.5 50 18 147/73 (97) 93 01/14/18 08:00 52 01/14/18 07:01 54 01/14/18 06:20 55 01/14/18 05:19 51 01/14/18 04:47 59 01/14/18 03:11 51 01/14/18 03:11 97.3 50 19 144/70 (94) 93 01/14/18 02:07 46 01/14/18 01:39 48 01/14/18 00:31 70 01/13/18 23:03 50 01/13/18 23:03 98.0 51 20 155/83 (107) 94 01/13/18 22:00 79 01/13/18 21:31 54 01/13/18 20:00 60 01/13/18 19:15 53 01/13/18 19:15 98.2 56 19 132/86 (101) 93 01/13/18 18:01 56 01/13/18 17:00 52 01/13/18 16:01 50 I/O 01/13/18 01/13/18 01/13/18 01/14/18 01/14/18 01/14/18 07:00 15:00 23:00 07:00 15:00 23:00 Intake Total 730 ml 720 ml 480 ml Output Total 1200 ml 1350 ml 1050 ml Balance -470 ml -630 ml -570 ml Intake Oral 480 ml 720 ml 480 ml IV Total 250 ml Output Urine Total 1200 ml 1350 ml 1050 ml # Voids 7 # Bowel Movements 1 2 1 Result Diagram: 01/14/18 0349 01/14/18 0830 Objective Remarks GENERAL: Well-nourished, well-developed patient. SKIN: Warm and dry. HEAD: Normocephalic. EYES: No scleral icterus. No injection or drainage. NECK: Supple, trachea midline. No JVD or lymphadenopathy. CARDIOVASCULAR: Regular rate and rhythm without murmurs, gallops, or rubs. RESPIRATORY: Breath sounds equal bilaterally. No accessory muscle use. GASTROINTESTINAL: Abdomen soft, non-tender, nondistended. EXTREMITIES: No cyanosis, or edema. NEUROLOGICAL: Awake, alert, and oriented x 3. Non-focal. A/P Problem List: (1) Syncope ICD Code: R55 - Syncope and collapse Status: Acute (2) Ventricular arrhythmia ICD Code: I49.9 - Cardiac arrhythmia, unspecified Status: Acute (3) s/p cardiac arrest (4) Hyperlipemia ICD Code: E78.5 - Hyperlipidemia, unspecified (5) Hypertension ICD Code: I10 - Essential (primary) hypertension Assessment and Plan NSTEMI s/p cardiac arrest, Ventricular arrhythmia Patient revived at the gym yesterday by bystanders using AED Denies any current chest pain or shortness of breath Multivessel disease present on angiogram Open heart surgery scheduled for 01/15/2018 Hypothyroidism TSH was 8.0, started on Synthroid Hypertension Continue with metoprolol DVT prophylaxis Heparin Problem Qualifiers (1) Syncope: Qualified Codes: R55 - Syncope and collapse Favian Brandon MD Jan 14, 2018 15:34
[2018-01-14] MEDS: ATORVASTATIN 80 MG TAB PO SCH (21:38)
[2018-01-15] VITALS (21 sets, daily range): BP systolic 98–140; BP diastolic 50–79; PULSE 45–91; RESP 16–20; TEMP 97.8–98.5; O2SAT 90–95
[2018-01-15] MEDS: HEPARIN-D5W 25,000 U/250 ML 250 ML IV PRN (02:32)
[2018-01-15] MEDS: LEVOTHYROXINE SODIUM 50 MCG TAB PO SCH (05:50)
[2018-01-15] MEDS ORDERED: HEPARIN SODIUM - SQ 10,000 UNITS/ML VIAL ONE (06:11)
[2018-01-15] MEDS ORDERED: VANCOMYCIN HCL 1000 MG VIAL ONE (06:12)
[2018-01-15] MEDS ORDERED: ceFAZolin 2 GM PREMIX 50 ML ONE ×2 (06:12→09:14)
[2018-01-15 06:56] LABS: HEMATOCRIT 43.1 % (39.0-51.0); MEAN CORPUSCULAR HEMOGLOBIN 32.3 PG (27.0-34.0); MEAN CORPUSCULAR HGB CONC 34.7 % (32.0-36.0); MEAN PLATELET VOLUME 8.8 FL (7.0-11.0); PLATELET COUNT 151 TH/MM3 (150-450); RED BLOOD COUNT 4.64 MIL/MM3 (4.50-5.90); RED CELL DISTRIBUTION WIDTH 14.3 % (11.6-17.2)
[2018-01-15] MEDS ORDERED: ceFAZolin INJ 1,000 MG VIAL ONE (07:42)
[2018-01-15] MEDS: ASPIRIN 81 MG CHEW TAB PO SCH (09:00)
[2018-01-15] MEDS: amLODIPine BESYLATE 5 MG TAB PO SCH (09:00)
[2018-01-15] MEDS: PANTOPRAZOLE SOD 40 MG DELAYED RELEASE TAB PO SCH ×2 (09:00→21:00)
[2018-01-15] MEDS: FOLIC ACID 1 MG TAB PO SCH (09:00)
[2018-01-15] MEDS: SODIUM CHLORIDE 0.9% FLUSH 10 ML FLUSH IV FLUSH SCH ×3 (09:00→22:07)
[2018-01-15] MEDS: MULTIVITAMIN TAB PO SCH (09:00)
[2018-01-15] MEDS: METOPROLOL TARTRATE 25 MG TAB PO SCH ×2 (09:00→22:06)
[2018-01-15] MEDS: THIAMINE HCL 100 MG TAB PO SCH (09:00)
[2018-01-15] MEDS ORDERED: AMINOCAPROIC ACID INJ 250 MG/ML 20 ML VIAL IV ONE (12:00)
[2018-01-15] MEDS ORDERED: VECURONIUM BROMIDE 10 MG VIAL IV ONE (12:00)
[2018-01-15] MEDS ORDERED: MAGNESIUM SULFATE 1 GM/2 ML VIAL IV ONE (12:00)
[2018-01-15] MEDS ORDERED: NS 100 ML (PAB BAG) 200 ML IV ONE (12:00)
[2018-01-15] MEDS ORDERED: EPINEPHrine HCL (1:1000) 1 MG/ML VIAL IV ONE (12:00)
[2018-01-15] MEDS ORDERED: ePHEDrine/NS 25 MG/5 ML SYRINGE IV ONE (12:00)
[2018-01-15] MEDS ORDERED: METOPROLOL TARTRATE 5 MG/5 ML VIAL IV ONE (12:00)
[2018-01-15] MEDS ORDERED: NITROGLYCERIN 50 MG/DEXTROSE 5% SOLN 250 ML BTL IV ONE (12:00)
[2018-01-15] MEDS ORDERED: LACTATED RINGER'S 1000 ML INJ 1,000 ML IV ONE (12:00)
[2018-01-15] MEDS ORDERED: PHENYLEPH/NS 1000 MCG/10 ML SYR IV ONE (12:00)
[2018-01-15] MEDS ORDERED: SODIUM CHLORID 0.9% 500 ML INJ 500 ML IV ONE (12:00)
[2018-01-15] MEDS ORDERED: DEXMEDETOMIDINE HCL 200 MCG/2 ML VIAL IV ONE (12:00)
[2018-01-15] MEDS ORDERED: PROTAMINE SULFATE 250 MG/25 ML VIAL IV ONE (12:00)
[2018-01-15] MEDS ORDERED: SODIUM CHLOR 0.9% 250 ML INJ 500 ML IV ONE (12:00)
[2018-01-15] MEDS ORDERED: HEPARIN SODIUM - SQ 10,000 UNITS/ML VIAL OTHER ONE (12:00)
[2018-01-15] MEDS ORDERED: NORMOSOL R INJ 1,000 ML IV ONE (12:00)
[2018-01-15] MEDS ORDERED: DOBUTamine PREMIX DRIP 250 ML IV PRN (12:14)
[2018-01-15] MEDS ORDERED: LACTATED RINGER'S 1000 ML INJ 500 ML IV PRN (12:14)
[2018-01-15] MEDS ORDERED: NITROGLYCERIN-D5W 50 MG/250 ML 250 ML IV PRN (12:15)
[2018-01-15] MEDS ORDERED: METOPROLOL TARTRATE 5 MG/5 ML VIAL IV PUSH PRN (12:15)
[2018-01-15] MEDS ORDERED: SODIUM BICARBONATE 8.4% SOLN 50 MEQ/50 ML VIAL IV PUSH PRN ×2 (12:15)
[2018-01-15] MEDS ORDERED: CALCIUM CHLORIDE 10% 1 GRAM/10 ML VIAL IV PUSH PRN (12:15)
[2018-01-15] MEDS ORDERED: DEXTROSE 50% IN WATER 50 ML VIAL(D50) IV PUSH PRN (12:15)
[2018-01-15] MEDS ORDERED: POTASSIUM CHLOR 20 MEQ PREMIX 100 ML IV PRN ×3 (12:15)
[2018-01-15] MEDS ORDERED: KETOROLAC TROMETHAMINE 30 MG/ML (IVP) VIAL IV PUSH PRN (12:15)
[2018-01-15] MEDS ORDERED: MEPERIDINE HCL 25 MG/ML VIAL IV PUSH PRN (12:15)
[2018-01-15] MEDS ORDERED: RESP: RACEPINEPHRINE 2.25% 0.5 ML NEB NEB PRN (12:15)
[2018-01-15] MEDS ORDERED: ALBUMIN 5% INJ 250 ML IV PRN (12:15)
[2018-01-15] MEDS ORDERED: RESP: ALBUTEROL 2.5 MG/IPRATROPIUM 0.5 MG NEB (PRN) NEB (12:15)
[2018-01-15] MEDS ORDERED: Post-op Orders (for Pharmacy) OTHER ONE (12:15)
[2018-01-15] MEDS ORDERED: SODIUM CHLORIDE 0.9% FLUSH 10 ML FLUSH IV FLUSH PRN (12:15)
[2018-01-15] MEDS ORDERED: INSULIN REGULAR (IV INFUSION) 100 UNITS in SODIUM CHLORIDE 0.9% INJ 99 ML IV PRN (12:15)
[2018-01-15] MEDS ORDERED: MORPHINE SULFATE 4 MG/ML INJ IV PUSH PRN (12:15)
[2018-01-15] MEDS ORDERED: ACETAMINOPHEN 325 MG TAB PO PRN (12:15)
[2018-01-15] MEDS ORDERED: POTASSIUM CHLORIDE 20 MEQ CONTROLLED RELEASE TAB PO PRN ×2 (12:15)
[2018-01-15] MEDS ORDERED: hydrALAZINE HCL 20 MG/ML VIAL IV PUSH PRN (12:15)
[2018-01-15] MEDS ORDERED: ACETAMINOPHEN 650 MG SUPP RECTAL PRN (12:15)
[2018-01-15] MEDS ORDERED: MAGNESIUM SULFATE INJ 2 GM in SODIUM CHLORIDE 0.9% INJ 100 ML IV PRN ×4 (12:15)
[2018-01-15] MEDS ORDERED: PHENYLEPHRINE INJ 40 MG in DEXTROSE 5% IN WATE 500 ML INJ 496 ML IV PRN ×2 (12:15)
[2018-01-15] MEDS ORDERED: DOPamine 800 MG/500 ML INJ 500 ML IV PRN (12:15)
--- NOTE | 2018-01-15 12:26 | PD.OP ---
cc: Jin Marquez MD; Francois Vincent DO Operative Report Date of Surgery: Jan 15, 2018 Preoperative Diagnosis: Postoperative Diagnosis: Procedure: 1. Off-pump Coronary Artery Bypass Grafting x 3 with Left Internal Mammary Artery (NOWAK) to Diagonal ! (D1), reverse saphenous vein graft to Left Anterior Descending (LAD), reverse saphenous vein graft to the Ramus marginalis (RM) 2. Right Leg Endoscopic Vein Perris 3. Intraoperative Vein Mapping. Surgeon: Jin Marquez Full Stack Php Developer(s): Julio Cesar Johnson Operation and Findings: PREPROCEDURE DIAGNOSES 1. Severe Multi Vessel Coronary Artery Disease. 2. Acute Myocardial Infarction 3. Cardiac Arrest POSTPROCEDURE DIAGNOSES Same SURGICAL PROCEDURE 1. Off-pump Coronary Artery Bypass Grafting x 3 with Left Internal Mammary Artery (NOWAK) to Diagonal ! (D1), reverse saphenous vein graft to Left Anterior Descending (LAD), reverse saphenous vein graft to the Ramus marginalis (RM) 2. Right Leg Endoscopic Vein Perris 3. Intraoperative Vein Mapping. SURGEON Jin Marquez MD CONTACT CENTER REPRESENTATIVE Derek Johnson MANAGED CARE NURSEGenevieve Arnold [facility] General endotracheal DIABETES EDUCATOR MANDY Ng MD PREPARATION ChloraPrep. COUNTS Needle, sponge, and instrument counts were correct. DRAINS Two 32-Polish mediastinal tubes. COMPLICATIONS None. INDICATIONS FOR PROCEDURE The patient is a 63-year-old presenting with chest pain, AMI and cardiac arrest. Patient was noted to have multi-vessel coronary artery disease. The patient is being brought to the operating room for surgical revascularization therapy. PROCEDURE Patient was brought to the operating room and placed supine on the OR table. Following the induction of adequate general endotracheal anesthesia and placement of appropriate monitoring devices, intraoperative vein mapping was performed which revealed poor-caliber conduit in bilateral lower extremities. The patient was then prepped and draped in standard sterile fashion. Next, 2500 units of intravenous heparin was given. The right greater saphenous vein was harvested endoscopically. This was a large-caliber conduit. Simultaneously, a median sternotomy was performed and the left internal mammary artery dissected free off the posterior sternal table. The patient was systemically heparinized and anticoagulation monitored by serial ACT measurements. The internal mammary artery had good pulsatile flow in it and was a good-caliber conduit. The pericardium was then divided in the midline, the cradle created and targets analyzed. At this point, all anastomoses were performed in a beating-heart fashion using the Maquet stabilizing system. The LAD was very diffusely and heavily diseased. The left internal mammary artery was anastomosed to the D1 (2 mm) in an end-to-side fashion using 7-0 Prolene. Segment of saphenous vein graft was then anastomosed to the distal most LAD (1.5 mm) in an end-to-side fashion using 7-0 Prolene. The next segment was anastomosed to the ramus (2 mm) in an end-to-side fashion using 7-0 Prolene. The Circumflex territory was explored and deemed to not be bypassable. The proximal anastomoses were then constructed to the ascending aorta in a running manner using 6-0 Prolene. All anastomotic sites were inspected and appeared to be hemostatic and patent. Protamine solution was given. Strict hemostasis was assured. The closure was undertaken. 2 chest tubes were placed. The pericardium was reapproximated in the midline. The sternum was approximated using sternal wires. The muscular and fascial layer were then closed in 3 layers. The endoscopic vein harvest site was closed in 2 layers. The patient tolerated the procedure well and was transferred to CVICU in stable condition. Jin Marquez MD Jan 15, 2018 12:26
[2018-01-15] MEDS: DEXMEDETOMIDINE INJ 200 MCG in SODIUM CHLORIDE 0.9% INJ 50 ML IV PRN (12:46)
[2018-01-15] MEDS ORDERED: MIDAZOLAM HCL 5 MG/ML VIAL (1 ML) ONE (13:07)
[2018-01-15] MEDS ORDERED: fentaNYL CITRATE 250 MCG/5 ML AMP ONE (13:10)
[2018-01-15] MEDS ORDERED: MIDAZOLAM HCL 2 MG/2 ML VIAL ONE ×2 (13:10)
[2018-01-15] MEDS: CALCIUM CHLORIDE INJ 1 GM in SODIUM CHLORIDE 0.9% INJ 100 ML IV PRN ×2 (13:17→18:36)
[2018-01-15] MEDS: CLEVIDIPINE INJ 50 ML IV PRN ×2 (13:19→22:07)
[2018-01-15] MEDS: ACETAMINOPHEN 1000 MG/100 ML 100 ML IV SCH ×2 (13:32→22:05)
--- NOTE | 2018-01-15 13:34 | RADRPT ---
EXAM DATE: 01/15/2018 1:19 PM EDT AGE/SEX: 63 years / Male INDICATIONS: Status post CABG. CLINICAL DATA: This is the patient's subsequent encounter. Patient reports that signs and symptoms h ave been present for 4 - 6 days and indicates a pain score of Nonresponsive. MEDICAL/SURGICAL HISTORY: None. . cardiac cath. COMPAR[place]: [facility] [place]. . FINDINGS: The endotracheal tube has its tip in good position approximately 3 cm above the jamie. A nasogastric tube has its tip in the stomach. Bilateral chest tubes are noted in good positions. There is no pneu mothorax. Right internal jugular central line has its tip in the right atrium. Median sternotomy wire s are noted status post cardiac surgery. The heart is enlarged. Scattered atelectatic changes are not ed. Minimal central pulmonary vascular congestion is also noted. CONCLUSION: 1. Cardiomegaly. 2. Scattered atelectatic changes. 3. Minimal central pulmonary vascular congestion. 4. Multiple tubes and lines are stable. Electronically signed by: Jorge Alberto Bonilla MD 01/15/2018 1:33 PM EDT
[2018-01-15] MEDS ORDERED: ONDANSETRON ODT 4 MG TAB PO PRN (13:45)
--- NOTE | 2018-01-15 14:02 | HHI.PR ---
Addendum to Inpatient Note Addendum Reason: Additional Documentation Additional Information Patient is sedated and intubated following open heart surgery this morning. He appears to be doing well, no signs of distress. Favian Brandon MD Jan 15, 2018 14:02
--- NOTE | 2018-01-15 14:33 | HHI.FF ---
Face to Face Verification Diagnosis: (1) S/P CABG x 3 (2) s/p cardiac arrest (3) Hyperlipemia (4) Hypertension (5) ETOH abuse Home Health Nursing Order: Signs/symptoms of disease process Medication education-adverse effect Wound care and dressing changes Nursing assessment with vital signs Instructions: Heart and Vascular Surgery patients *Special attention to sternal dressing Mandatory frequency Assess and evaluation, 4 days in a row The next week 3X week 2 times a week for 4 weeks 1 time a week for 5 weeks Schedule Heart and Vascular patients for full 60 day certification period Initial visit Review Open Heart Surgery Discharge Instructions (Sternal precautions, Activity, Elastic hose, Incision care, Driving, Incentive spirometry, Smoking, [place], Work and other) Need Betadine to paint incision Medication reconciliation Importance of follow up care/ check on appointments Make calendar record temperature daily When to call [facility] nurse, review instructions, phone list Incentive Spirometry, demonstration Visit 1- Begin discharge instruction for patient family and/ or caregiver using teach back method- Signs and symptoms of infection Disease characteristics Medicines and side effects Foods and nutrition/ appetite Infection control/ hand washing/ hygiene Visit 2- Continue teaching Discharge instructions- include additional information on smoking cessation , sternal dressing (sternal vac) Visit 3- Continue teaching- Cough and deep breathing, incision monitoring. Choose my plate Visit 4- Continue teaching- Discuss limitations Discuss how they are feeling Discuss progress toward goals Remaining visits- continue teaching and monitoring For any questions please call : Monday 8am-5pm Heart & Vascular Surgery Office ( Dr. Marquez & Dr. Sol), After Hours / Nights (5pm -8am) Weekends and Holidays Please call [facility] Cardiac Intermediate Care Unit (CIC) Charge Nurse PREVENA Single Use Negative Wound Therapy System Caregiver Instruction Sheet 1. A Prevena dressing system was applied to the chest incision during surgery , to promote wound healing. It works via a suction device (negative pressure wound therapy) to remove low to moderate levels of exudate (drainage) and infectious materials. We recommend that the device stay in place for up to seven days, from day of surgery. 2. Day of Surgery___/06/24 Day of Removal ____/ 3. The dressing should only be removed by a health career development consultant. Please arrange removal of device to coincide with Home Health visit and or with Nursing staff at Rehab 4. If skin reddening or irritation of skin occurs, or excessive drainage, please notify the Cardiovascular Surgeons office at [phone]. 5. Light showering is permissible; however the pump should be disconnected and placed in safe location, where it will not get wet. The dressing should not be exposed to direct spray or submerged in water. No bath tub / shower only. Ensure the end of the tubing attached to the dressing is facing down so that water does not enter the top of the tube. 6. To remove Prevena dressing: press purple button to turn off device / remove the suction. Then disconnect the tubing from the pump. The fixation strips should be stretched away from the skin and the dressing lifted at one corner and peeled back until it has been fully removed. 7. After removal, it is ok to shower daily using liquid dial soap and clean wash cloth, rinse and pat dry, and leave incision open to air dry. For any concerns regarding Prevena dressing, and or wounds, please contact Zuleika Cuadra, patient navigator at [phone] or notify the Cardiovascular Surgeons office at [phone]. Incentive spirometry Q1 hr x 10, while awake, also use acapella device hourly whole awake Sternal Breast Bone Precautions: NO pushing or pulling, ( pt must use sternal pillow to support chest with all activities and with coughing ( takes up to 3 months breast bone to heal ) Daily incision care: ok to shower daily, no tub bath. Wash all incisions with liquid dial soap, clean wash cloth to each site, rinse and pat dry. Observe for any signs of infection, such as drainage which is dark yellow, campbell, green or foul smelling. Immediately report to the surgeon any drainage from the chest incision, or legs, and for any abnormal drainage from the chest tube sites. Notify surgeon if any temp >101.5 degrees F. When specialty dressing removed/ or if you do not have one, continue to shower daily as above, then rinse and pat incision dry and paint with betadine daily x 5 days. Allow steri strips to fall off if you have any. Avoid lotions, creams, salves, oils, etc. for the first month Please see attached forms for additional instructions regarding post Open Heart specialty wound vacuum dressings. ALICIA or Prevena , Dressing to be removed by Nursing staff on __01/22/18 F/U appointment: as per DC instructions: PCP in 2 weeks, CV surgeon 2 weeks, Die Maker 3-4 weeks For any questions regarding incisions/ dressing / meds / post op care or above Symptoms, Monday 8am-5pm Heart & Vascular Surgery Office ( Dr. Marquez & Dr. Sol), After Hours / Nights (5pm -8am) Weekends and Holidays Please call [facility] Cardiac Intermediate Care Unit (CIC) Charge Nurse I have seen patient Aries Mendenhall on 01/15/18. My clinical findings support the need for the requested home health care services because: Deconditioned w/ increased weakness I certify that my clinical findings support that this patient is homebound because: Post-op weakness Lilian Marquis Jan 15, 2018 14:33
[2018-01-15] MEDS: RESP: ALBUTEROL 2.5 MG/IPRATROPIUM 0.5 MG NEB (SCH) NEB ×2 (18:13→21:45)
[2018-01-15] MEDS: AMIODARONE 200 MG TAB PO SCH (22:05)
[2018-01-15] MEDS: ceFAZolin 2 GM PREMIX 50 ML IV SCH (22:05)
[2018-01-15] MEDS: ATORVASTATIN 80 MG TAB PO SCH (22:06)
--- NOTE | 2018-01-15 22:10 | PD.CONS ---
[facility] Service Critical Care Medicine Consult Requested By Primary Care Physician Unknown History of Present Illness 63-year-old morbidly obese gentleman underwent coronary Artery Bypass Grafting x 3 with Left Internal Mammary Artery to Diagonal today. Prior to admission he suffered a witnessed cardiac arrest at the gym. Bystanders placed an AED on him and advised to shock and a shock was delivered. On the scene an EKG was done and it was felt to be a posterior ST elevation ME and so a STEMI alert was called. The patient was emergently taken to cardiac catheterization lab that showed Multivessel coronary artery disease that was treated with CABG. Postoperatively patient is neurologically intact however is difficult to wean off the mechanical ventilation. Review of Systems ROS Unable to obtain patient sedated and intubated Past Family Social History Allergies: Coded Allergies: No Known Allergies (Unverified , 12/22/17) Past Medical History None Past Surgical History None Reported Medications Reported Meds & Active Scripts Active Denbo (Hydrocodone-Acetaminophen) 5 Mg-325 Mg Tab 1-2 Tab PO Q4-6H PRN Robaxin (Methocarbamol) 500 Mg Tab 500 Mg PO QID PRN Ibuprofen 800 Mg Tab 800 Mg PO Q8H PRN Active Ordered Medications Current Medications Medications (Trade) Dose Ordered Sig/Edd Route PRN Reason Start Time Stop Time Status Last Admin Dose Admin Metoprolol Tartrate (Lopressor) 12.5 mg BID PO 01/09/18 21:00 01/15/18 22:06 Atorvastatin Calcium (Lipitor) 80 mg HS PO 01/09/18 21:00 01/15/18 22:06 Miscellaneous (Pill Splitter) 1 ea UNSCH PRN OTHER SEE LABEL COMMENTS 01/09/18 14:30 Sodium Chloride (NS Flush) 2 ml BID IV FLUSH 01/09/18 21:00 01/15/18 22:06 Sodium Chloride (NS Flush) 2 ml UNSCH PRN IV FLUSH FLUSH AFTER USING IV ACCESS 01/09/18 15:00 Papaverine HCl 60 mg/Nitroglycerin 100 mcg/Diltiazem HCl 100 mg/Sodium Chloride 100 ml @ 0 mls/hr WATERPROOFER IRRIGATION 01/09/18 15:00 01/16/18 14:59 01/15/18 08:38 Cefazolin Sodium 500 mg/Sodium Chloride 505 ml @ 0 mls/hr WATERPROOFER IRRIGATION 01/09/18 15:00 01/16/18 14:59 01/15/18 08:38 Cefazolin Sodium/ Dextrose 50 ml @ 150 mls/hr WATERPROOFER IV 01/09/18 15:00 01/16/18 14:59 01/15/18 07:40 Metoprolol Tartrate (Lopressor) 12.5 mg WATERPROOFER PO 01/09/18 15:00 01/16/18 14:59 Chlorhexidine Gluconate (Hibiclens 4% Top Soln) 1 applic WATERPROOFER TOPICAL 01/09/18 15:00 01/16/18 14:59 Insulin Human Regular 100 units/ Sodium Chloride 100 ml @ 3 mls/hr TITRATE PRN IV for blood glucose control 01/09/18 15:00 01/16/18 14:59 Dextrose (D50w (Vial) Inj) 50 ml UNSCH PRN IV PUSH HYPOGLYCEMIA-SEE COMMENTS 01/09/18 15:00 Multivitamins (Theragran) 1 tab DAILY PO 01/10/18 09:00 01/14/18 08:43 Folic Acid (Folate) 1 mg DAILY PO 01/10/18 09:00 01/14/18 08:44 Thiamine HCl (Vitamin B1) 100 mg DAILY PO 01/10/18 09:00 01/14/18 08:43 Pantoprazole Sodium (Protonix) 40 mg Q12HR PO 01/11/18 11:00 01/14/18 21:38 Amlodipine Besylate (Norvasc) 5 mg DAILY PO 01/11/18 15:30 01/14/18 08:44 Levothyroxine Sodium (Synthroid) 50 mcg DAILY@0600 PO 01/15/18 06:00 01/15/18 05:50 Sodium Chloride (NS Flush) 2 ml BID IV FLUSH 01/15/18 21:00 01/15/18 22:07 Sodium Chloride (NS Flush) 2 ml UNSCH PRN IV FLUSH FLUSH AFTER USING IV ACCESS 01/15/18 12:15 Dexmedetomidine HCl 200 mcg/ Sodium Chloride 52 ml @ 6.46 mls/hr TITRATE PRN IV SEDATION 01/15/18 12:15 01/15/18 12:46 Nitroglycerin/ Dextrose 250 ml @ 1.5 mls/hr TITRATE PRN IV Maintain BP < 140/90 mmHg 01/15/18 12:15 Dobutamine HCl/ Dextrose 250 ml @ 0 mls/hr Q0M PRN IV Rate change per MD 01/15/18 12:14 Dopamine HCl/ Dextrose 500 ml @ 0 mls/hr TITRATE PRN IV Maintain MAP > 65 mmHg 01/15/18 12:15 Phenylephrine HCl 40 mg/Dextrose 500 ml @ 30 mls/hr TITRATE PRN IV Maintain MAP > 65 mmHg 01/15/18 12:15 Clevidipine 50 ml @ 2 mls/hr TITRATE PRN IV Maintain BP < 140/90 mmHg 01/15/18 12:15 01/15/18 22:07 Albumin Human 250 ml @ 250 mls/hr UNSCH PRN IV SEE LABEL COMMENTS 01/15/18 12:15 01/15/18 14:04 Lactated Ringer's 500 ml @ 500 mls/hr Q1H PRN IV SEE LABEL COMMENTS 01/15/18 12:14 Aspirin (Aspirin Chew) 81 mg DAILY PO 01/16/18 09:00 Clopidogrel Bisulfate (Plavix) 75 mg DAILY PO 01/16/18 09:00 Pantoprazole Sodium (Protonix) 40 mg DAILY@06 PO 01/16/18 06:00 Amiodarone HCl (Cordarone) 200 mg Q12HR PO 01/15/18 21:00 01/15/18 22:05 Acetaminophen (Tylenol) 650 mg Q4H PRN PO TEMPERATURE > 101 F 01/15/18 12:15 Acetaminophen (Tylenol Supp) 650 mg Q4H PRN RECTAL TEMPERATURE > 101 F 01/15/18 12:15 Acetaminophen 100 ml @ 400 mls/hr Q6H IV 01/15/18 14:00 01/16/18 08:14 01/15/18 22:05 Morphine Sulfate (Morphine Inj) 1 mg Q10M PRN IV PUSH PAIN SCALE 1 TO 5 01/15/18 12:15 Meperidine HCl (Demerol Inj) 12.5 mg Q4H PRN IV PUSH SEE LABEL COMMENTS 01/15/18 12:15 Acetaminophen/ Hydrocodone Bitart ([place] 5-325 Mg) 1 tab Q3H PRN PO PAIN SCALE 1 TO 5 01/15/18 12:15 Ketorolac Tromethamine (Toradol Inj) 15 mg Q6H PRN IV PUSH SEE LABEL COMMENTS 01/15/18 12:15 01/17/18 12:14 Fentanyl Citrate (fentaNYL INJ) 25 mcg Q1H PRN IV PUSH BREAKTHROUGH PAIN 01/15/18 12:15 Ondansetron HCl (Zofran Odt) 4 mg Q6H PRN PO NAUSEA OR VOMITING 01/15/18 13:45 Hydralazine HCl (Apresoline Inj) 10 mg Q4H PRN IV PUSH SEE LABEL COMMENTS 01/15/18 12:15 Metoprolol Tartrate (Lopressor Inj) 2.5 mg Q1H PRN IV PUSH SEE LABEL COMMENTS 01/15/18 12:15 Potassium Chloride 100 ml @ 50 mls/hr UNSCH PRN IV SEE LABEL COMMENTS 01/15/18 12:15 Potassium Chloride 100 ml @ 50 mls/hr UNSCH PRN IV SEE LABEL COMMENTS 01/15/18 12:15 Potassium Chloride 100 ml @ 50 mls/hr UNSCH PRN IV SEE LABEL COMMENTS 01/15/18 12:15 Potassium Chloride (KCl) 20 meq UNSCH PRN PO SEE LABEL COMMENTS 01/15/18 12:15 Potassium Chloride (KCl) 40 meq UNSCH PRN PO SEE LABEL COMMENTS 01/15/18 12:15 Magnesium Sulfate 2 gm/Sodium Chloride 104 ml @ 100 mls/hr UNSCH PRN IV SEE LABEL COMMENTS 01/15/18 12:15 Magnesium Sulfate 2 gm/Sodium Chloride 104 ml @ 50 mls/hr UNSCH PRN IV SEE LABEL COMMENTS 01/15/18 12:15 Calcium Chloride 1 gm/Sodium Chloride 110 ml @ 100 mls/hr UNSCH PRN IV SEE LABEL COMMENTS 01/15/18 12:15 01/15/18 18:36 Calcium Chloride (Calcium Chloride Inj) 0.5 gm UNSCH PRN IV PUSH SEE LABEL COMMENTS 01/15/18 12:15 Insulin Human Regular 100 units/ Sodium Chloride 100 ml @ 3 mls/hr TITRATE PRN IV for blood glucose control 01/15/18 12:15 01/15/18 13:00 Dextrose (D50w (Vial) Inj) 50 ml UNSCH PRN IV PUSH HYPOGLYCEMIA-SEE COMMENTS 01/15/18 12:15 Cefazolin Sodium/ Dextrose 50 ml @ 100 mls/hr Q8H IV 01/15/18 20:00 01/17/18 04:29 01/15/18 22:05 Sodium Bicarbonate (Sodium Bicarbonate 8.4% Inj) 50 meq UNSCH PRN IV PUSH SEE LABEL COMMENTS 01/15/18 12:15 Sodium Bicarbonate (Sodium Bicarbonate 8.4% Inj) 100 meq UNSCH PRN IV PUSH SEE LABEL COMMENTS 01/15/18 12:15 Albuterol/ Ipratropium (Duoneb Neb) 1 ampule Q6HR NEB NEB 01/15/18 16:00 01/15/18 21:45 Albuterol/ Ipratropium (Duoneb Neb) 1 ampule Q2HR NEB PRN NEB WHEEZING 01/15/18 12:15 Racepinephrine (Racepinephrine 2.25% Neb) 0.5 ml UNSCH X1 PRN NEB STRIDOR 01/15/18 12:15 01/16/18 12:14 Family History Denies premature coronary artery disease or sudden cardiac within the family. Social History The patient previously smoked but quit a number of years ago. Denies drug abuse. He does drink beer daily, usually 1-2 and occasionally will have a few more on random days. Physical Exam Vital Signs Vital Signs Date Time Temp Pulse Resp B/P (MAP) Pulse Ox O2 Delivery O2 Flow Rate FiO2 01/15/18 22:07 108 140/78 01/15/18 18:00 91 165/93 01/15/18 16:00 65 01/15/18 15:00 73 01/15/18 15:00 97.8 73 20 104/67 (79) 94 121/69 (86) 01/15/18 14:00 70 01/15/18 13:50 95 60 01/15/18 13:19 90 200/110 01/15/18 13:06 90 100 01/15/18 13:00 74 01/15/18 12:46 74 01/15/18 12:46 100 01/15/18 12:46 98.2 74 16 110/71 (84) 90 98/50 (66) 01/15/18 12:41 98.2 01/15/18 06:01 97.9 45 16 140/69 (92) 93 01/15/18 06:00 50 01/15/18 05:00 48 01/15/18 04:30 52 16 133/65 (87) 95 01/15/18 04:00 48 01/15/18 03:00 73 01/15/18 02:00 48 01/15/18 01:00 50 01/15/18 00:00 50 01/14/18 23:20 50 18 157/79 (105) 94 01/14/18 23:00 47 Physical Exam GENERAL: Morbidly obese gentleman sedated and intubated SKIN: Warm and dry. HEAD: Normocephalic. EYES: No scleral icterus. No injection or drainage. NECK: Supple, trachea midline. No JVD or lymphadenopathy. CARDIOVASCULAR: Regular rate and rhythm without murmurs, gallops, or rubs. RESPIRATORY: Breath sounds equal bilaterally. No accessory muscle use. GASTROINTESTINAL: Abdomen soft, non-tender, nondistended. MUSCULOSKELETAL: No cyanosis, or edema. BACK: Nontender without obvious deformity. NEURO EXAM: The patient is sedated and intubated. Off sedation he follows commands on all 4 extremities. Laboratory Laboratory Tests Test 01/15/18 05:28 White Blood Count 7.0 Red Blood Count 4.64 Hemoglobin 15.0 Hematocrit 43.1 Mean Corpuscular Volume 93.0 Mean Corpuscular Hemoglobin 32.3 Mean Corpuscular Hemoglobin Concent 34.7 Red Cell Distribution Width 14.3 Platelet Count 151 Mean Platelet Volume 8.8 Date/Time Source Procedure Growth Status 01/11/18 09:15 Stool Stool Stool Occult Blood (DASHA) - Final HEMOCCULT NEGATIVE Complete Result Diagram: 01/15/18 0528 01/14/18 0830 Imaging Last 24 hours Impressions Chest X-Ray 01/15/18 0000 Signed Impressions: CONCLUSION: 1. Cardiomegaly. 2. Scattered atelectatic changes. 3. Minimal central pulmonary vascular congestion. 4. Multiple tubes and lines are stable. Assessment and Plan Assessment and Plan Respiratory failure -Postoperatively -Obesity hypoventilation syndrome -Continue gentle diuresis -Wean FiO2 as tolerated -Currently still requiring 70% FiO2 -not safe to extubate -SBT when improved oxygenation -DuoNeb's as needed Coronary artery disease -Aspirin -Metoprolol -Atorvastatin Dyslipidemia -Atorvastatin Hypothyroidism -Levothyroxine Hypertension -Norvasc -Metoprolol Critical Care: The total critical care time was 35 minutes. Time to perform other separately billable procedures was not included in the critical care time. Matty Carlos MD Jan 15, 2018 10:10 pm
[2018-01-15] MEDS ORDERED: FUROSEMIDE 40 MG/4 ML VIAL IV ONE (23:30)
[2018-01-16] VITALS (15 sets, daily range): BP systolic 97–156; BP diastolic 58–84; PULSE 70–103; RESP 18–24; TEMP 97.9–99.6; O2SAT 92–97
[2018-01-16] MEDS: CLEVIDIPINE INJ 50 ML IV PRN ×2 (02:28→12:41)
[2018-01-16] MEDS: ACETAMINOPHEN 1000 MG/100 ML 100 ML IV SCH ×2 (02:28→07:57)
[2018-01-16] MEDS: DEXMEDETOMIDINE INJ 200 MCG in SODIUM CHLORIDE 0.9% INJ 50 ML IV PRN (02:29)
[2018-01-16] MEDS: RESP: ALBUTEROL 2.5 MG/IPRATROPIUM 0.5 MG NEB (SCH) NEB ×6 (03:29→22:00)
[2018-01-16 05:07] LABS: AUTOMATED NEUTROPHIL # 8.4 TH/MM3 (1.8-7.7); BASOPHIL % 0.2 % (0.0-2.0); HEMOGLOBIN 13.9 GM/DL (13.0-17.0); LYMPH % 5.7 % (9.0-44.0); LYMPHOCYTE # 0.6 TH/MM3 (1.0-4.8); MEAN CELL VOLUME 91.3 FL (80.0-100.0); MEAN CORPUSCULAR HEMOGLOBIN 32.5 PG (27.0-34.0); MEAN CORPUSCULAR HGB CONC 35.6 % (32.0-36.0); MEAN PLATELET VOLUME 8.3 FL (7.0-11.0); MONO % 10.4 % (0.0-8.0); NEUT % 83.7 % (16.0-70.0); PLATELET COUNT 167 TH/MM3 (150-450); RED BLOOD COUNT 4.27 MIL/MM3 (4.50-5.90); RED CELL DISTRIBUTION WIDTH 14.2 % (11.6-17.2)
[2018-01-16 05:11] LABS: ALBUMIN 3.5 GM/DL (3.4-5.0); AST (GOT) 29 U/L (15-37); BICARBONATE 21.7 MEQ/L (21.0-32.0); BLOOD UREA NITROGEN 16 MG/DL (7-18); CALCIUM 8.7 MG/DL (8.5-10.1); CHLORIDE 106 MEQ/L (98-107); CREATININE 1.14 MG/DL (0.60-1.30); GLOMERULAR FILTRATION RATE 64 ML/MIN (>89); GLUCOSE,RANDOM 125 MG/DL (74-106); MAGNESIUM 2.2 MG/DL (1.5-2.5); SODIUM (NA) 140 MEQ/L (136-145)
[2018-01-16 05:12] LABS: ALT (GPT) 65 U/L (12-78); PHOSPHORUS 3.5 MG/DL (2.5-4.9)
[2018-01-16 05:14] LABS: ALKALINE PHOSPHATASE 74 U/L (45-117); TOTAL BILIRUBIN ADULT 1.2 MG/DL (0.2-1.0); TOTAL PROTEIN 6.9 GM/DL (6.4-8.2)
[2018-01-16] MEDS: ceFAZolin 2 GM PREMIX 50 ML IV SCH ×3 (05:28→20:00)
[2018-01-16] MEDS: LEVOTHYROXINE SODIUM 50 MCG TAB PO SCH (05:29)
--- NOTE | 2018-01-16 05:41 | RADRPT ---
EXAM DATE: 01/16/2018 5:26 AM EDT AGE/SEX: 63 years / Male INDICATIONS: Short of breath. CLINICAL DATA: This is the patient's subsequent encounter. Patient reports that signs and symptoms h ave been present for 4 - 6 days and indicates a pain score of 0/10. MEDICAL/SURGICAL HISTORY: None. . Cardiac cath. COMPARISON: [facility] [place], CHEST SINGLE AP, 01/15/2018. . FINDINGS: Single AP view the chest. Median sternotomy wires. Endotracheal tube, nasogastric tube, right IJ cent ral venous catheter, bilateral chest tubes remain in place. Patchy left lower lobe atelectasis unchan ged. No evidence of pleural effusion or pneumothorax. CONCLUSION: 1. Lines and tubes remain in place. 2. No change in patchy left lung base opacity. Electronically signed by: Ketan Doyle MD 01/16/2018 5:40 AM EDT
[2018-01-16] MEDS: PANTOPRAZOLE SOD 40 MG DELAYED RELEASE TAB PO SCH (06:00)
[2018-01-16] MEDS ORDERED: BISACODYL 10 MG SUPP RECTAL PRN (09:00)
[2018-01-16] MEDS ORDERED: DEXTROSE 50% IN WATER 50 ML VIAL(D50) IV PUSH PRN (09:00)
[2018-01-16] MEDS ORDERED: SOD PHOSPHATE/SOD BIPHOSPHATE (ADULT) ENEMA 133ML RECTAL PRN (09:00)
[2018-01-16] MEDS: MULTIVITAMIN TAB PO SCH (09:00)
[2018-01-16] MEDS ORDERED: GLUCAGON 1 MG/ML VIAL OTHER PRN (09:00)
[2018-01-16] MEDS: MULTIVITAMINS/MINERALS THERAPEUTIC TAB PO SCH (09:00)
[2018-01-16 09:22] LABS: FREE T3 1.53 PG/ML (2.18-3.98); FREE T4 1.02 NG/DL (0.76-1.46)
[2018-01-16] MEDS: INSULIN ASPART SUPPLEMENTAL SCALE SQ SCH ×4 (10:00→22:00)
--- NOTE | 2018-01-16 10:32 | HHI.CCPN ---
Subjective Remarks/Hospital Course 63-year-old morbidly obese gentleman underwent coronary Artery Bypass Grafting x 3 with Left Internal Mammary Artery to Diagonal today. Prior to admission he suffered a witnessed cardiac arrest at the gym. Bystanders placed an AED on him and advised to shock and a shock was delivered. On the scene an EKG was done and it was felt to be a posterior ST elevation [place] and so a STEMI alert was called. The patient was emergently taken to cardiac catheterization lab that showed Multivessel coronary artery disease that was treated with CABG. Postoperatively patient is neurologically intact however is difficult to wean off the mechanical ventilation. 01/16 Patient was extubated this morning on 6L oxygen. Afebrile. Siting up in chair looks comfortable. On Cleviprex 5mg/hr Objective Vital Signs Date Time Temp Pulse Resp B/P (MAP) Pulse Ox O2 Delivery O2 Flow Rate FiO2 01/16/18 09:13 92 Nasal Cannula 6.00 01/16/18 08:10 40 01/16/18 07:49 99.6 01/16/18 07:00 90 20 139/84 (102) 132/69 (90) Intake and Output 01/16/18 01/16/18 01/17/18 08:00 16:00 00:00 Intake Total 458 ml 100 ml Output Total 1895 ml Balance -1437 ml 100 ml Result Diagram: 01/16/18 0430 01/16/18 0430 Other Results Laboratory Tests Test 01/16/18 04:30 01/16/18 05:55 White Blood Count 10.0 TH/MM3 Red Blood Count 4.27 MIL/MM3 Hemoglobin 13.9 GM/DL Hematocrit 39.0 % Mean Corpuscular Volume 91.3 FL Mean Corpuscular Hemoglobin 32.5 PG Mean Corpuscular Hemoglobin Concent 35.6 % Red Cell Distribution Width 14.2 % Platelet Count 167 TH/MM3 Mean Platelet Volume 8.3 FL Neutrophils (%) (Auto) 83.7 % Lymphocytes (%) (Auto) 5.7 % Monocytes (%) (Auto) 10.4 % Eosinophils (%) (Auto) 0.0 % Basophils (%) (Auto) 0.2 % Neutrophils # (Auto) 8.4 TH/MM3 Lymphocytes # (Auto) 0.6 TH/MM3 Monocytes # (Auto) 1.0 TH/MM3 Eosinophils # (Auto) 0.0 TH/MM3 Basophils # (Auto) 0.0 TH/MM3 CBC Comment DIFF FINAL Differential Comment Blood Urea Nitrogen 16 MG/DL Creatinine 1.14 MG/DL Random Glucose 125 MG/DL Total Protein 6.9 GM/DL Albumin 3.5 GM/DL Calcium Level 8.7 MG/DL Phosphorus Level 3.5 MG/DL Magnesium Level 2.2 MG/DL Alkaline Phosphatase 74 U/L Aspartate Amino Transf (AST/SGOT) 29 U/L Alanine Aminotransferase (ALT/SGPT) 65 U/L Total Bilirubin 1.2 MG/DL Sodium Level 140 MEQ/L Potassium Level 3.9 MEQ/L Chloride Level 106 MEQ/L Carbon Dioxide Level 21.7 MEQ/L Anion Gap 12 MEQ/L Estimat Glomerular Filtration Rate 64 ML/MIN Free Thyroxine 1.02 NG/DL Free Triiodothyronine (T3) pg/dL 1.53 PG/ML Blood Gas Puncture Site ART LINE Blood Gas Patient Temperature 98.6 Blood Gas HCO3 23 mmol/L Blood Gas Base Excess -1.2 mmol/L Blood Gas Oxygen Saturation 96 % Arterial Blood pH 7.42 Arterial Blood Partial Pressure CO2 35 mmHg Arterial Blood Partial Pressure O2 109 mmHg Arterial Blood Oxygen Content 18.7 Vol % Arterial Blood Carboxyhemoglobin 1.1 % Arterial Blood Methemoglobin 1.2 % Blood Gas Hemoglobin 13.8 G/DL Oxygen Delivery Device VENTILATOR Blood Gas Ventilator Setting PRVC/SIMV Blood Gas Inspired Oxygen 40 % Imaging Last Impressions Chest X-Ray 01/16/18 0500 Signed Impressions: CONCLUSION: 1. Lines and tubes remain in place. 2. No change in patchy left lung base opacity. Lower Extremity Ultrasound 01/10/18 Signed Impressions: CONCLUSION: 1. Venous mapping as detailed above. Carotid Artery Ultrasound 01/10/18 Signed Impressions: CONCLUSION: No evidence for hemodynamically significant stenosis. Objective Remarks GENERAL: Morbidly obese gentleman lying in bed in NAD SKIN: Warm and dry. HEAD: Normocephalic. EYES: No scleral icterus. No injection or drainage. NECK: Supple, trachea midline. No JVD or lymphadenopathy. CARDIOVASCULAR: Regular rate and rhythm without murmurs, gallops, or rubs. RESPIRATORY: Breath sounds equal bilaterally. No accessory muscle use. GASTROINTESTINAL: Abdomen soft, non-tender, nondistended. MUSCULOSKELETAL: No cyanosis, or edema. BACK: Nontender without obvious deformity. NEURO EXAM: Awake and alert A/P Assessment and Plan Respiratory failure- Extubated S/p Off pump CABG x3 Obesity hypoventilation syndrome Coronary artery disease Dyslipidemia Hypothyroidism Hypertension Plan Neuro: Awake and alert Pulm: Continue with oxygen keep sats >92% Bronchodilators, IS CV: Monitor HR and BP keep MAP>65mmHg On ASA, Plavix, Lipitor, Amiodarone 200mg Q12, Norvasc 5mg daily, Lopressor 25mg Q12 Monitor CT drainage, CTS-Dr. Marquez On Cleviprex 5mg/hr : Monitor renal function, electrolytes replacement per protocol. GI: Start PO diet ID: Perioperative abx per CTS- On Cefazolin. Monitor for signs of infections ( Fever, WBC) Heme: Monitor CBC Endo: SSI for glycemic control On Synthroid 50mcg daily GI prophylaxis- On Protonix 40mg daily DVT prophylaxis- SCD's, chemical AC prophylaxis once cleared by CTS Level 2 Gail Salmon MD Jan 16, 2018 10:32
[2018-01-16] MEDS: METOPROLOL TARTRATE 25 MG TAB PO SCH ×2 (10:38→20:35)
[2018-01-16] MEDS: CLOPIDOGREL 75 MG TAB PO SCH (10:38)
[2018-01-16] MEDS: ASPIRIN 81 MG CHEW TAB PO SCH (10:38)
[2018-01-16] MEDS: SODIUM CHLORIDE 0.9% FLUSH 10 ML FLUSH IV FLUSH SCH ×2 (10:39→20:36)
[2018-01-16] MEDS: amLODIPine BESYLATE 5 MG TAB PO SCH (11:35)
[2018-01-16] MEDS: MAGNESIUM HYDROXIDE SUSP 30 ML CUP PO SCH (11:35)
[2018-01-16] MEDS: AMIODARONE 200 MG TAB PO SCH ×2 (11:35→20:35)
--- NOTE | 2018-01-16 12:40 | PD.CARD.PN ---
Subjective Subjective Remarks CABG yesterday, extubated this morning Doing well, up to the chair Mild HTN on Cleviprex drip Objective Medications Current Medications Medications (Trade) Dose Ordered Sig/Edd Route Start Time Stop Time Status Last Admin (Lipitor) 80 mg HS PO 01/09/18 21:00 01/15/18 22:06 (Pill Splitter) 1 ea UNSCH PRN OTHER 01/09/18 14:30 (Theragran) 1 tab DAILY PO 01/10/18 09:00 01/14/18 08:43 (Norvasc) 5 mg DAILY PO 01/11/18 15:30 01/16/18 11:35 (Synthroid) 50 mcg DAILY@0600 PO 01/15/18 06:00 01/16/18 05:29 (NS Flush) 2 ml BID IV FLUSH 01/15/18 21:00 01/16/18 10:39 (NS Flush) 2 ml UNSCH PRN IV FLUSH 01/15/18 12:15 Dexmedetomidine HCl 200 mcg/ Sodium Chloride 52 ml @ 6.46 mls/hr TITRATE PRN IV 01/15/18 12:15 01/16/18 02:29 Clevidipine 50 ml @ 2 mls/hr TITRATE PRN IV 01/15/18 12:15 01/16/18 02:28 (Aspirin Chew) 81 mg DAILY PO 01/16/18 09:00 01/16/18 10:38 (Plavix) 75 mg DAILY PO 01/16/18 09:00 01/16/18 10:38 (Protonix) 40 mg DAILY@06 PO 01/16/18 06:00 (Cordarone) 200 mg Q12HR PO 01/15/18 21:00 01/16/18 11:35 (Tylenol) 650 mg Q4H PRN PO 01/15/18 12:15 ([place] 5-325 Mg) 1 tab Q3H PRN PO 01/15/18 12:15 (Toradol Inj) 15 mg Q6H PRN IV PUSH 01/15/18 12:15 01/17/18 12:14 (fentaNYL INJ) 25 mcg Q1H PRN IV PUSH 01/15/18 12:15 (Zofran Odt) 4 mg Q6H PRN PO 01/15/18 13:45 (Apresoline Inj) 10 mg Q4H PRN IV PUSH 01/15/18 12:15 (Lopressor Inj) 2.5 mg Q1H PRN IV PUSH 01/15/18 12:15 Cefazolin Sodium/ Dextrose 50 ml @ 100 mls/hr Q8H IV 01/15/18 20:00 01/17/18 04:29 01/16/18 05:28 (Duoneb Neb) 1 ampule Q6HR NEB NEB 01/15/18 16:00 01/16/18 09:13 (Duoneb Neb) 1 ampule Q2HR NEB PRN NEB 01/15/18 12:15 (Lopressor) 25 mg Q12HR PO 01/16/18 09:00 01/16/18 10:38 (Duoneb Neb) 1 ampule Q6HR WHILE AWAKE NEB NEB 01/16/18 14:00 01/18/18 13:59 (Colace) 100 mg BID PO 01/16/18 21:00 (Theragran M Tab) 1 tab DAILY PO 01/16/18 09:00 (Milk Of Magnesia Liq) 30 ml DAILY PO 01/16/18 09:00 01/16/18 11:35 (Dulcolax Supp) 10 mg UNSCH PRN RECTAL 01/16/18 09:00 (Miralax) 17 gm DAILY PO 01/17/18 09:00 (Senokot) 8.6 mg HS PO 01/16/18 21:00 (Fleets Enema (Adult)) 118 ml UNSCH PRN RECTAL 01/16/18 09:00 (NovoLOG SUPPLEMENTAL SCALE) 1 02,06,10,14,18,22 SQ 01/16/18 10:00 01/17/18 09:59 (D50w (Vial) Inj) 50 ml UNSCH PRN IV PUSH 01/16/18 09:00 (Glucagon Inj) 1 mg UNSCH PRN OTHER 01/16/18 09:00 (NovoLOG SUPPLEMENTAL SCALE) 1 ACHS SQ 01/17/18 12:00 Vital Signs / I&O Vital Signs Date Time Temp Pulse Resp B/P (MAP) Pulse Ox O2 Delivery O2 Flow Rate FiO2 01/16/18 11:00 94 01/16/18 11:00 92 Nasal Cannula 6.00 01/16/18 11:00 99.0 94 24 156/72 (100) 92 01/16/18 09:13 92 Nasal Cannula 6.00 01/16/18 08:10 94 Nasal Cannula 6 01/16/18 08:10 40 01/16/18 07:49 99.6 01/16/18 07:41 95 40 01/16/18 07:41 Nasal Cannula 40 01/16/18 07:00 40 01/16/18 07:00 99.6 90 20 139/84 (102) 97 132/69 (90) 01/16/18 07:00 90 01/16/18 07:00 96 Mechanical Ventilator 40 01/16/18 04:00 40 01/16/18 04:00 96 Mechanical Ventilator 40 01/16/18 04:00 99.3 71 18 140/80 (100) 96 97/58 (71) 01/16/18 04:00 70 01/16/18 03:31 95 40 01/16/18 03:00 40 01/16/18 02:30 45 01/16/18 02:28 113 137/71 01/16/18 00:44 94 50 01/16/18 00:00 50 01/16/18 00:00 102 01/16/18 00:00 96 Mechanical Ventilator 50 01/16/18 00:00 99.1 103 20 128/76 (93) 96 126/65 (85) 01/15/18 23:30 60 01/15/18 23:00 70 01/15/18 22:07 108 140/78 01/15/18 21:45 70 01/15/18 21:40 90 70 01/15/18 20:00 98.5 91 19 124/79 (94) 91 123/59 (80) 01/15/18 20:00 90 01/15/18 20:00 60 01/15/18 20:00 91 Mechanical Ventilator 60 01/15/18 18:00 91 165/93 01/15/18 17:22 93 55 01/15/18 16:20 95 60 01/15/18 16:00 91 60 01/15/18 16:00 65 01/15/18 15:00 73 01/15/18 15:00 97.8 73 20 104/67 (79) 94 121/69 (86) 01/15/18 14:00 70 6/11/18 13:50 95 60 01/15/18 13:19 90 200/110 01/15/18 13:06 90 100 01/15/18 13:00 74 01/15/18 12:46 74 01/15/18 12:46 100 01/15/18 12:46 98.2 74 16 110/71 (84) 90 98/50 (66) 01/15/18 12:41 98.2 I/O 01/15/18 01/15/18 01/15/18 01/16/18 01/16/18 01/16/18 07:00 15:00 23:00 07:00 15:00 23:00 Intake Total 240 ml 3850 ml 867 ml 406 ml 162 ml Output Total 600 ml 1350 ml 680 ml 1895 ml Balance -360 ml 2500 ml 187 ml -1489 ml 162 ml Intake Oral 240 ml 0 ml IV Total 450 ml 367 ml 406 ml 162 ml Autotransfusion 500 ml Other 2900 ml 500 ml Output Urine Total 600 ml 350 ml 510 ml 1775 ml Gastric Drainage Total 0 ml 0 ml Chest Tube Drainage Total 170 ml 120 ml Estimated Blood Loss 1000 ml # Bowel Movements 0 0 0 Physical Exam GENERAL: NAD, AAOx3 SKIN: Warm and dry. HEAD: Atraumatic. Normocephalic. EYES: Pupils equal and round. No scleral icterus. No injection or drainage. ENT: No nasal bleeding or discharge. Mucous membranes pink and moist. NECK: Trachea midline. No JVD. CARDIOVASCULAR: Regular rate and rhythm. Sternotomy RESPIRATORY: No accessory muscle use. Clear to auscultation. Breath sounds equal bilaterally. GASTROINTESTINAL: Abdomen soft, non-tender, nondistended. Hepatic and splenic margins not palpable. MUSCULOSKELETAL: Extremities without clubbing, cyanosis, or edema. No obvious deformities. NEUROLOGICAL: Awake and alert. No obvious cranial nerve deficits. Motor grossly within normal limits. Five out of 5 muscle strength in the arms and legs. Normal speech. PSYCHIATRIC: Appropriate mood and affect; insight and judgment normal. Laboratory Laboratory Tests Test 01/16/18 04:30 01/16/18 05:55 White Blood Count 10.0 TH/MM3 Red Blood Count 4.27 MIL/MM3 Hemoglobin 13.9 GM/DL Hematocrit 39.0 % Mean Corpuscular Volume 91.3 FL Mean Corpuscular Hemoglobin 32.5 PG Mean Corpuscular Hemoglobin Concent 35.6 % Red Cell Distribution Width 14.2 % Platelet Count 167 TH/MM3 Mean Platelet Volume 8.3 FL Neutrophils (%) (Auto) 83.7 % Lymphocytes (%) (Auto) 5.7 % Monocytes (%) (Auto) 10.4 % Eosinophils (%) (Auto) 0.0 % Basophils (%) (Auto) 0.2 % Neutrophils # (Auto) 8.4 TH/MM3 Lymphocytes # (Auto) 0.6 TH/MM3 Monocytes # (Auto) 1.0 TH/MM3 Eosinophils # (Auto) 0.0 TH/MM3 Basophils # (Auto) 0.0 TH/MM3 CBC Comment DIFF FINAL Differential Comment Blood Urea Nitrogen 16 MG/DL Creatinine 1.14 MG/DL Random Glucose 125 MG/DL Total Protein 6.9 GM/DL Albumin 3.5 GM/DL Calcium Level 8.7 MG/DL Phosphorus Level 3.5 MG/DL Magnesium Level 2.2 MG/DL Alkaline Phosphatase 74 U/L Aspartate Amino Transf (AST/SGOT) 29 U/L Alanine Aminotransferase (ALT/SGPT) 65 U/L Total Bilirubin 1.2 MG/DL Sodium Level 140 MEQ/L Potassium Level 3.9 MEQ/L Chloride Level 106 MEQ/L Carbon Dioxide Level 21.7 MEQ/L Anion Gap 12 MEQ/L Estimat Glomerular Filtration Rate 64 ML/MIN Free Thyroxine 1.02 NG/DL Free Triiodothyronine (T3) pg/dL 1.53 PG/ML Blood Gas Puncture Site ART LINE Blood Gas Patient Temperature 98.6 Blood Gas HCO3 23 mmol/L Blood Gas Base Excess -1.2 mmol/L Blood Gas Oxygen Saturation 96 % Arterial Blood pH 7.42 Arterial Blood Partial Pressure CO2 35 mmHg Arterial Blood Partial Pressure O2 109 mmHg Arterial Blood Oxygen Content 18.7 Vol % Arterial Blood Carboxyhemoglobin 1.1 % Arterial Blood Methemoglobin 1.2 % Blood Gas Hemoglobin 13.8 G/DL Oxygen Delivery Device VENTILATOR Blood Gas Ventilator Setting PRVC/SIMV Blood Gas Inspired Oxygen 40 % Imaging Last 24 hours Impressions Chest X-Ray 01/16/18 0500 Signed Impressions: CONCLUSION: 1. Lines and tubes remain in place. 2. No change in patchy left lung base opacity. Assessment and Plan Problem List: (1) s/p cardiac arrest (2) Hyperlipemia ICD Codes: E78.5 - Hyperlipidemia, unspecified (3) Hypertension ICD Codes: I10 - Essential (primary) hypertension (4) ETOH abuse ICD Codes: F10.10 - Alcohol abuse, uncomplicated (5) Ventricular arrhythmia ICD Codes: I49.9 - Cardiac arrhythmia, unspecified Status: Acute (6) Syncope ICD Codes: R55 - Syncope and collapse Status: Acute (7) Heme + stool ICD Codes: R19.5 - Other fecal abnormalities Assessment and Plan 1) Cardiac arrest due to VT 2) VT due to ischemia 3) MVCAD/NSTEMI s/p CABGx3 POD#1 NOWAK to Diag SVG to LAD SVG to Ramus/high OM 4) EF 50-55% 5) HTN Currently on Cleviprex, given meds will attempt to wean off Problem Qualifiers (1) Syncope: Qualified Codes: R55 - Syncope and collapse Francois Vincent DO Jan 16, 2018 12:40
--- NOTE | 2018-01-16 14:14 | EKG ---
Date Performed: 01/16/2018 Time Performed: 04:55:02 PTAGE: 63 years EKG: Sinus rhythm Possible inferior infarct - age undetermined Abnormal ECG NO PREVIOUS TRACING DOCTOR: Hung So Interpretating Date/Time 01/16/2018 14:13:12
--- NOTE | 2018-01-16 14:18 | HHI.PR ---
Subjective Remarks Patient is doing well, POD#1, awake, alert, oriented x 3. No distress, pain controlled. Objective Vitals Vital Signs Date Time Temp Pulse Resp B/P (MAP) Pulse Ox O2 Delivery O2 Flow Rate FiO2 01/16/18 13:30 84 130/63 01/16/18 12:49 85 153/73 01/16/18 12:41 85 153/73 01/16/18 11:00 94 01/16/18 11:00 92 Nasal Cannula 6.00 01/16/18 11:00 99.0 94 24 156/72 (100) 92 01/16/18 09:13 92 Nasal Cannula 6.00 01/16/18 08:10 94 Nasal Cannula 6 01/16/18 08:10 40 01/16/18 07:49 99.6 01/16/18 07:41 95 40 01/16/18 07:41 Nasal Cannula 40 01/16/18 07:00 40 01/16/18 07:00 99.6 90 20 139/84 (102) 97 132/69 (90) 01/16/18 07:00 90 01/16/18 07:00 96 Mechanical Ventilator 40 01/16/18 04:00 40 01/16/18 04:00 96 Mechanical Ventilator 40 01/16/18 04:00 99.3 71 18 140/80 (100) 96 97/58 (71) 01/16/18 04:00 70 01/16/18 03:31 95 40 01/16/18 03:00 40 01/16/18 02:30 45 01/16/18 02:28 113 137/71 01/16/18 00:44 94 50 01/16/18 00:00 50 01/16/18 00:00 102 01/16/18 00:00 96 Mechanical Ventilator 50 01/16/18 00:00 99.1 103 20 128/76 (93) 96 126/65 (85) 01/15/18 23:30 60 01/15/18 23:00 70 01/15/18 22:07 108 140/78 01/15/18 21:45 70 01/15/18 21:40 90 70 01/15/18 20:00 98.5 91 19 124/79 (94) 91 123/59 (80) 01/15/18 20:00 90 01/15/18 20:00 60 01/15/18 20:00 91 Mechanical Ventilator 60 01/15/18 18:00 91 165/93 01/15/18 17:22 93 55 01/15/18 16:20 95 60 01/15/18 16:00 91 60 01/15/18 16:00 65 01/15/18 15:00 73 01/15/18 15:00 97.8 73 20 104/67 (79) 94 121/69 (86) I/O 01/15/18 01/15/18 01/15/18 01/16/18 01/16/18 01/16/18 07:00 15:00 23:00 07:00 15:00 23:00 Intake Total 240 ml 3850 ml 867 ml 406 ml 212 ml Output Total 600 ml 1350 ml 680 ml 1895 ml Balance -360 ml 2500 ml 187 ml -1489 ml 212 ml Intake Oral 240 ml 0 ml IV Total 450 ml 367 ml 406 ml 212 ml Autotransfusion 500 ml Other 2900 ml 500 ml Output Urine Total 600 ml 350 ml 510 ml 1775 ml Gastric Drainage Total 0 ml 0 ml Chest Tube Drainage Total 170 ml 120 ml Estimated Blood Loss 1000 ml # Bowel Movements 0 0 0 Result Diagram: 01/16/1842901/16/18429 Objective Remarks GENERAL: Well-nourished, well-developed patient. SKIN: Warm and dry. HEAD: Normocephalic. EYES: No scleral icterus. No injection or drainage. NECK: Supple, trachea midline. No JVD or lymphadenopathy. CARDIOVASCULAR: Regular rate and rhythm without murmurs, gallops, or rubs. RESPIRATORY: Breath sounds equal bilaterally. No accessory muscle use. GASTROINTESTINAL: Abdomen soft, non-tender, nondistended. EXTREMITIES: No cyanosis, or edema. NEUROLOGICAL: Awake, alert, and oriented x 3. Non-focal. A/P Problem List: (1) Syncope ICD Code: R55 - Syncope and collapse Status: Acute (2) Ventricular arrhythmia ICD Code: I49.9 - Cardiac arrhythmia, unspecified Status: Acute (3) s/p cardiac arrest (4) Hyperlipemia ICD Code: E78.5 - Hyperlipidemia, unspecified (5) Hypertension ICD Code: I10 - Essential (primary) hypertension Assessment and Plan NSTEMI s/p cardiac arrest, Ventricular arrhythmia Patient revived at the gym by bystanders using AED Multivessel disease present on angiogram Open heart surgery done on 01/15/2018 Doing well post-op, extubated on 01/15 Continue with post-op care Hypothyroidism TSH was 8.0, started on Synthroid Hypertension Continue with metoprolol DVT prophylaxis Heparin Problem Qualifiers (1) Syncope: Qualified Codes: R55 - Syncope and collapse Favian Brandon MD Jan 16, 2018 14:18
[2018-01-16] MEDS ORDERED: amLODIPine BESYLATE 5 MG TAB PO ONE (15:15)
[2018-01-16] MEDS ORDERED: cloNIDine HCL 0.1 MG TAB PO PRN (15:15)
[2018-01-16] MEDS: ACETAMINOPHEN/HYDROcodone 325 MG/5 MG TAB PO PRN ×2 (15:43→18:38)
[2018-01-16] MEDS: ATORVASTATIN 80 MG TAB PO SCH (20:35)
[2018-01-16] MEDS: SENNOSIDES 8.6 MG TAB PO SCH (20:35)
[2018-01-16] MEDS: DOCUSATE SODIUM 100 MG CAP PO SCH (20:35)
[2018-01-17] VITALS (16 sets, daily range): BP systolic 128–136; BP diastolic 72–75; PULSE 84–109; RESP 16–18; TEMP 97.9–99; O2SAT 91–96
[2018-01-17] MEDS: INSULIN ASPART SUPPLEMENTAL SCALE SQ SCH ×5 (02:00→21:25)
[2018-01-17] MEDS: RESP: ALBUTEROL 2.5 MG/IPRATROPIUM 0.5 MG NEB (SCH) NEB ×4 (04:00→19:47)
[2018-01-17] MEDS: ceFAZolin 2 GM PREMIX 50 ML IV SCH (04:55)
[2018-01-17 05:02] LABS: BICARBONATE 23.9 MEQ/L (21.0-32.0); CALCIUM 8.9 MG/DL (8.5-10.1); CREATININE 1.02 MG/DL (0.60-1.30); MAGNESIUM 2.5 MG/DL (1.5-2.5)
[2018-01-17 05:03] LABS: PHOSPHORUS 2.6 MG/DL (2.5-4.9)
[2018-01-17 05:04] LABS: AUTOMATED NEUTROPHIL # 9.8 TH/MM3 (1.8-7.7); BASOPHIL % 0.3 % (0.0-2.0); EOSINOPHIL % 0.2 % (0.0-4.0); HEMATOCRIT 39.6 % (39.0-51.0); HEMOGLOBIN 13.7 GM/DL (13.0-17.0); LYMPH % 6.3 % (9.0-44.0); LYMPHOCYTE # 0.7 TH/MM3 (1.0-4.8); MEAN CELL VOLUME 93.9 FL (80.0-100.0); MEAN CORPUSCULAR HEMOGLOBIN 32.4 PG (27.0-34.0); MEAN CORPUSCULAR HGB CONC 34.5 % (32.0-36.0); MEAN PLATELET VOLUME 8.2 FL (7.0-11.0); MONO % 9.4 % (0.0-8.0); MONOCYTE # 1.1 TH/MM3 (0-0.9); NEUT % 83.8 % (16.0-70.0); PLATELET COUNT 165 TH/MM3 (150-450); RED BLOOD COUNT 4.22 MIL/MM3 (4.50-5.90); RED CELL DISTRIBUTION WIDTH 14.3 % (11.6-17.2); WHITE BLOOD COUNT 11.7 TH/MM3 (4.0-11.0)
[2018-01-17] MEDS: ACETAMINOPHEN/HYDROcodone 325 MG/5 MG TAB PO PRN ×3 (05:08→21:30)
[2018-01-17] MEDS: LEVOTHYROXINE SODIUM 50 MCG TAB PO SCH (06:00)
[2018-01-17] MEDS: PANTOPRAZOLE SOD 40 MG DELAYED RELEASE TAB PO SCH (06:00)
[2018-01-17] MEDS: POTASSIUM CHLORIDE 10 MEQ CONTROLLED RELEASE TAB PO SCH ×2 (09:15→21:24)
--- NOTE | 2018-01-17 09:19 | PD.CAR.PN ---
CVT Progress Note Subjective/Hospital Course: 63-year-old male. The patient apparently was working out at the [facility] in [place] when he collapsed, witnessed cardiac arrest. The bystander said that he was unresponsive. They grabbed the AED, which advised them to shock. The shock was delivered. There was a physician at the scene and came in with the patient in the ambulance to help provide a history. The EKG was done. The patient was felt to be a posterior ST segment SC. A repeat EKG was done and it was felt to be a non-STEMI instead of a STEMI alert. Patient apparently had return of spontaneous circulation after the shock and 2 rounds of CPR. The patient denies having any history of cardiac disease, has not seen a physician in probably 20 years. He said he had a [employer] screening 3 years ago, which went well. Echo: EF 50%/ grade 1 diastolic dysfunction 01/10 pt pain free last pm , other than some soreness left upper chest from the shock scheduled for surgery on Monday on Heparin gtt 01/11 per nursing , pt had one + Hemoccult stool/ second pending , if + will need GI consult , on PPI no chest pain on heparin gtt 01/12 doing well , no new complaints second Hemoccult neg for surgery on Sunday 01/14 CP free OR in am 01/15 surgery 1. Off-pump Coronary Artery Bypass Grafting x 3 with Left Internal Mammary Artery (NOWAK) to Diagonal ! (D1), reverse saphenous vein graft to Left Anterior Descending (LAD), reverse saphenous vein graft to the Ramus marginalis (RM) 2. Right Leg Endoscopic Vein Clyde 3. Intraoperative Vein Mapping. 01/16 remained intubated until early this am , has hx of sleep apnea po meds started to wean off cleviprex 01/17 BB increased, on amiodarone gentle diuresis chest tube removed without difficulty transfer to stepdown Objective: GENERAL: A&O x 3 SKIN: Warm and dry. prevena dressing to chest HEAD: Normocephalic. EYES: No scleral icterus. No injection or drainage. NECK: Supple, trachea midline. No JVD or lymphadenopathy. CARDIOVASCULAR: Regular rate and rhythm without murmurs, gallops, or rubs. mild general edema RESPIRATORY: Breath sounds equal bilaterally. No accessory muscle use. few crackles left bases/ chest tube removed GASTROINTESTINAL: Abdomen soft, non-tender, nondistended. MUSCULOSKELETAL: No cyanosis, or edema. BACK: Nontender without obvious deformity. No CVA tenderness. Vital Signs Date Time Temp Pulse Resp B/P (MAP) Pulse Ox O2 Delivery O2 Flow Rate FiO2 01/17/18 08:37 94 Nasal Cannula 2.00 01/17/18 07:00 96 Nasal Cannula 5.00 01/17/18 07:00 93 01/17/18 07:00 98.1 98 17 136/73 (94) 92 01/17/18 06:10 18 01/17/18 03:00 92 01/17/18 03:00 98.2 88 18 131/74 (93) 92 01/17/18 03:00 92 Nasal Cannula 5.00 01/16/18 23:00 97.9 88 20 119/64 (82) 94 Arterial Line 01/16/18 23:00 88 01/16/18 23:00 94 Nasal Cannula 5.00 01/16/18 22:00 97 Nasal Cannula 6.00 01/16/18 19:00 101 01/16/18 19:00 93 Nasal Cannula 5.00 01/16/18 19:00 98.6 101 22 122/80 (94) 93 Arterial Line 01/16/18 18:41 95 Nasal Cannula 5.00 01/16/18 17:34 94 122/51 01/16/18 15:21 94 Nasal Cannula 6.00 01/16/18 15:19 98.6 81 20 126/64 (84) 92 01/16/18 15:00 83 01/16/18 15:00 86 126/64 01/16/18 13:56 20 01/16/18 13:56 20 01/16/18 13:30 84 130/63 01/16/18 12:49 85 153/73 01/16/18 12:41 85 153/73 01/16/18 11:00 94 01/16/18 11:00 92 Nasal Cannula 6.00 01/16/18 11:00 99.0 94 24 156/72 (100) 92 Labs: Laboratory Tests Test 01/17/18 04:30 White Blood Count 11.7 TH/MM3 (4.0-11.0) Red Blood Count 4.22 MIL/MM3 (4.50-5.90) Hemoglobin 13.7 GM/DL (13.0-17.0) Hematocrit 39.6 % (39.0-51.0) Mean Corpuscular Volume 93.9 FL (80.0-100.0) Mean Corpuscular Hemoglobin 32.4 PG (27.0-34.0) Mean Corpuscular Hemoglobin Concent 34.5 % (32.0-36.0) Red Cell Distribution Width 14.3 % (11.6-17.2) Platelet Count 165 TH/MM3 (150-450) Mean Platelet Volume 8.2 FL (7.0-11.0) Neutrophils (%) (Auto) 83.8 % (16.0-70.0) Lymphocytes (%) (Auto) 6.3 % (9.0-44.0) Monocytes (%) (Auto) 9.4 % (0.0-8.0) Eosinophils (%) (Auto) 0.2 % (0.0-4.0) Basophils (%) (Auto) 0.3 % (0.0-2.0) Neutrophils # (Auto) 9.8 TH/MM3 (1.8-7.7) Lymphocytes # (Auto) 0.7 TH/MM3 (1.0-4.8) Monocytes # (Auto) 1.1 TH/MM3 (0-0.9) Eosinophils # (Auto) 0.0 TH/MM3 (0-0.4) Basophils # (Auto) 0.0 TH/MM3 (0-0.2) CBC Comment DIFF FINAL Differential Comment Blood Urea Nitrogen 24 MG/DL (7-18) Creatinine 1.02 MG/DL (0.60-1.30) Random Glucose 126 MG/DL (74-106) Calcium Level 8.9 MG/DL (8.5-10.1) Phosphorus Level 2.6 MG/DL (2.5-4.9) Magnesium Level 2.5 MG/DL (1.5-2.5) Sodium Level 139 MEQ/L (136-145) Potassium Level 3.6 MEQ/L (3.5-5.1) Chloride Level 105 MEQ/L (98-107) Carbon Dioxide Level 23.9 MEQ/L (21.0-32.0) Anion Gap 10 MEQ/L (5-15) Estimat Glomerular Filtration Rate 73 ML/MIN (>89) Result Diagram: 01/17/18 0430 01/17/18 0430 (1) S/P CABG x 3 Plan: ASA, statin , plavix, BB OOB chest tube removed gentle diuresis transfer to stepdown (2) s/p cardiac arrest (3) Hyperlipemia Plan: on statin (4) Hypertension Plan: improved (5) ETOH abuse Plan: no evidence of withdrawal (6) Ventricular arrhythmia Plan: resolved (7) Syncope (8) Heme + stool Problem Qualifiers (1) Syncope: Qualified Codes: R55 - Syncope and collapse Lilian Marquis Jan 17, 2018 09:19
[2018-01-17] MEDS: DOCUSATE SODIUM 100 MG CAP PO SCH ×2 (09:21→21:00)
[2018-01-17] MEDS: MULTIVITAMIN TAB PO SCH (09:22)
[2018-01-17] MEDS: ASPIRIN 81 MG CHEW TAB PO SCH (09:22)
[2018-01-17] MEDS: amLODIPine BESYLATE 5 MG TAB PO SCH (09:22)
[2018-01-17] MEDS: CLOPIDOGREL 75 MG TAB PO SCH (09:22)
[2018-01-17] MEDS: POLYETHYLENE GLYCOL 17 GM PKG PO SCH (09:23)
[2018-01-17] MEDS: MAGNESIUM HYDROXIDE SUSP 30 ML CUP PO SCH (09:23)
[2018-01-17] MEDS: AMIODARONE 200 MG TAB PO SCH ×2 (09:23→21:23)
[2018-01-17] MEDS: MULTIVITAMINS/MINERALS THERAPEUTIC TAB PO SCH (09:23)
[2018-01-17] MEDS: SODIUM CHLORIDE 0.9% FLUSH 10 ML FLUSH IV FLUSH SCH ×2 (09:29→21:25)
[2018-01-17] MEDS ORDERED: POTASSIUM CHLORIDE 25 MEQ EFFERVESCENT TAB PO ONE (11:00)
--- NOTE | 2018-01-17 15:53 | HHI.PR ---
Subjective Remarks Patient is doing very well on postop day 2, he is up in his chair in his cheery mood has returned. Objective Vitals Vital Signs Date Time Temp Pulse Resp B/P (MAP) Pulse Ox O2 Delivery O2 Flow Rate FiO2 01/17/18 15:00 100 01/17/18 15:00 91 Room Air 01/17/18 15:00 98.3 101 17 128/72 (90) 91 01/17/18 14:00 100 01/17/18 13:00 103 01/17/18 12:00 100 01/17/18 11:00 96 Nasal Cannula 2.00 01/17/18 11:00 97.9 108 18 132/74 (93) 96 01/17/18 11:00 96 01/17/18 11:00 93 Nasal Cannula 2.00 01/17/18 11:00 90 01/17/18 10:59 18 01/17/18 08:37 94 Nasal Cannula 2.00 01/17/18 07:00 96 Nasal Cannula 5.00 01/17/18 07:00 93 01/17/18 07:00 98.1 98 17 136/73 (94) 92 01/17/18 03:00 92 01/17/18 03:00 98.2 88 18 131/74 (93) 92 01/17/18 03:00 92 Nasal Cannula 5.00 01/16/18 23:00 97.9 88 20 119/64 (82) 94 Arterial Line 01/16/18 23:00 88 01/16/18 23:00 94 Nasal Cannula 5.00 01/16/18 22:00 97 Nasal Cannula 6.00 01/16/18 19:00 101 01/16/18 19:00 93 Nasal Cannula 5.00 01/16/18 19:00 98.6 101 22 122/80 (94) 93 Arterial Line 01/16/18 18:41 95 Nasal Cannula 5.00 01/16/18 17:34 94 122/51 I/O 01/16/18 01/16/18 01/16/18 01/17/18 01/17/18 01/17/18 07:00 15:00 23:00 07:00 15:00 23:00 Intake Total 406 ml 212 ml 930 ml 770 ml 500 ml Output Total 1895 ml 920 ml 470 ml 460 ml Balance -1489 ml 212 ml 10 ml 300 ml 40 ml Intake Oral 0 ml 750 ml 720 ml 400 ml IV Total 406 ml 212 ml 50 ml 50 ml Other 130 ml 100 ml Output Urine Total 1775 ml 820 ml 400 ml 400 ml Gastric Drainage Total 0 ml Chest Tube Drainage Total 120 ml 100 ml 70 ml 60 ml # Bowel Movements 0 1 1 Result Diagram: 01/17/1842901/17/18429 Objective Remarks GENERAL: Well-nourished, well-developed patient. Obese SKIN: Warm and dry. Dressing over surgical scar on central chest is clean dry and intact HEAD: Normocephalic. EYES: No scleral icterus. No injection or drainage. NECK: Supple, trachea midline. No JVD or lymphadenopathy. CARDIOVASCULAR: Regular rate and rhythm without murmurs, gallops, or rubs. RESPIRATORY: Breath sounds equal bilaterally. No accessory muscle use. GASTROINTESTINAL: Abdomen soft, non-tender, nondistended. EXTREMITIES: No cyanosis, or edema. NEUROLOGICAL: Awake, alert, and oriented x 3. Non-focal. A/P Problem List: (1) Syncope ICD Code: R55 - Syncope and collapse Status: Acute (2) Ventricular arrhythmia ICD Code: I49.9 - Cardiac arrhythmia, unspecified Status: Acute (3) s/p cardiac arrest (4) Hyperlipemia ICD Code: E78.5 - Hyperlipidemia, unspecified (5) Hypertension ICD Code: I10 - Essential (primary) hypertension Assessment and Plan NSTEMI s/p cardiac arrest, Ventricular arrhythmia Patient revived at the gym by bystanders using AED Multivessel disease present on angiogram Open heart surgery done on 01/15/2018 Doing well post-op, extubated on 01/15 Continue with post-op care, encourage ambulation Hypothyroidism TSH was 8.0 preop Continue Synthroid DVT prophylaxis Heparin Problem Qualifiers (1) Syncope: Qualified Codes: R55 - Syncope and collapse Favian Brandon MD Jan 17, 2018 15:53
--- NOTE | 2018-01-17 16:29 | PD.CARD.PN ---
Subjective Subjective Remarks Doing well, up to the chair Up and ambulating Objective Medications Current Medications Medications (Trade) Dose Ordered Sig/Edd Route Start Time Stop Time Status Last Admin (Lipitor) 80 mg HS PO 01/09/18 21:00 01/16/18 20:35 (Pill Splitter) 1 ea UNSCH PRN OTHER 01/09/18 14:30 (Theragran) 1 tab DAILY PO 01/10/18 09:00 01/17/18 09:22 (Synthroid) 50 mcg DAILY@0600 PO 01/15/18 06:00 01/17/18 06:00 (NS Flush) 2 ml BID IV FLUSH 01/15/18 21:00 01/17/18 09:29 (NS Flush) 2 ml UNSCH PRN IV FLUSH 01/15/18 12:15 (Aspirin Chew) 81 mg DAILY PO 01/16/18 09:00 01/17/18 09:22 (Plavix) 75 mg DAILY PO 01/16/18 09:00 01/17/18 09:22 (Protonix) 40 mg DAILY@06 PO 01/16/18 06:00 01/17/18 06:00 (Cordarone) 200 mg Q12HR PO 01/15/18 21:00 01/17/18 09:23 (Tylenol) 650 mg Q4H PRN PO 01/15/18 12:15 ([place] 5-325 Mg) 1 tab Q3H PRN PO 01/15/18 12:15 01/17/18 09:21 (Zofran Odt) 4 mg Q6H PRN PO 01/15/18 13:45 (Apresoline Inj) 10 mg Q4H PRN IV PUSH 01/15/18 12:15 01/16/18 16:08 (Lopressor Inj) 2.5 mg Q1H PRN IV PUSH 01/15/18 12:15 (Duoneb Neb) 1 ampule Q2HR NEB PRN NEB 01/15/18 12:15 01/17/18 03:40 (Duoneb Neb) 1 ampule Q6HR WHILE AWAKE NEB NEB 01/16/18 14:00 01/18/18 13:59 01/17/18 13:33 (Colace) 100 mg BID PO 01/16/18 21:00 6/13/18 09:21 (Theragran M Tab) 1 tab DAILY PO 01/16/18 09:00 01/17/18 09:23 (Milk Of Magnesia Liq) 30 ml DAILY PO 01/16/18 09:00 01/17/18 09:23 (Dulcolax Supp) 10 mg UNSCH PRN RECTAL 01/16/18 09:00 (Miralax) 17 gm DAILY PO 01/17/18 09:00 01/17/18 09:23 (Senokot) 8.6 mg HS PO 01/16/18 21:00 01/16/18 20:35 (Fleets Enema (Adult)) 118 ml UNSCH PRN RECTAL 01/16/18 09:00 (D50w (Vial) Inj) 50 ml UNSCH PRN IV PUSH 01/16/18 09:00 (Glucagon Inj) 1 mg UNSCH PRN OTHER 01/16/18 09:00 (NovoLOG SUPPLEMENTAL SCALE) 1 ACHS SQ 01/17/18 12:00 (Norvasc) 10 mg DAILY PO 01/17/18 09:00 01/17/18 09:22 (Catapres) 0.1 mg Q6H PRN PO 01/16/18 15:15 (Lopressor) 50 mg Q12HR PO 01/17/18 21:00 (Lasix Inj) 40 mg BID@ IV PUSH 01/17/18 18:00 (KCl) 30 meq Q12HR PO 01/17/18 09:15 01/17/18 09:15 Vital Signs / I&O Vital Signs Date Time Temp Pulse Resp B/P (MAP) Pulse Ox O2 Delivery O2 Flow Rate FiO2 01/17/18 16:00 96 01/17/18 15:00 100 01/17/18 15:00 91 Room Air 01/17/18 15:00 98.3 101 17 128/72 (90) 91 01/17/18 14:00 100 01/17/18 13:00 103 01/17/18 12:00 100 01/17/18 11:00 96 Nasal Cannula 2.00 01/17/18 11:00 97.9 108 18 132/74 (93) 96 01/17/18 11:00 96 01/17/18 11:00 93 Nasal Cannula 2.00 01/17/18 11:00 90 01/17/18 10:59 18 01/17/18 08:37 94 Nasal Cannula 2.00 01/17/18 07:00 96 Nasal Cannula 5.00 01/17/18 07:00 93 01/17/18 07:00 98.1 98 17 136/73 (94) 92 01/17/18 03:00 92 01/17/18 03:00 98.2 88 18 131/74 (93) 92 01/17/18 03:00 92 Nasal Cannula 5.00 01/16/18 23:00 97.9 88 20 119/64 (82) 94 Arterial Line 01/16/18 23:00 88 01/16/18 23:00 94 Nasal Cannula 5.00 01/16/18 22:00 97 Nasal Cannula 6.00 01/16/18 19:00 101 01/16/18 19:00 93 Nasal Cannula 5.00 01/16/18 19:00 98.6 101 22 122/80 (94) 93 Arterial Line 01/16/18 18:41 95 Nasal Cannula 5.00 01/16/18 17:34 94 122/51 I/O 01/16/18 01/16/18 01/16/18 01/17/18 01/17/18 01/17/18 07:00 15:00 23:00 07:00 15:00 23:00 Intake Total 406 ml 212 ml 930 ml 770 ml 500 ml Output Total 1895 ml 920 ml 470 ml 460 ml Balance -1489 ml 212 ml 10 ml 300 ml 40 ml Intake Oral 0 ml 750 ml 720 ml 400 ml IV Total 406 ml 212 ml 50 ml 50 ml Other 130 ml 100 ml Output Urine Total 1775 ml 820 ml 400 ml 400 ml Gastric Drainage Total 0 ml Chest Tube Drainage Total 120 ml 100 ml 70 ml 60 ml # Bowel Movements 0 1 1 Physical Exam GENERAL: NAD, AAOx3 SKIN: Warm and dry. HEAD: Atraumatic. Normocephalic. EYES: Pupils equal and round. No scleral icterus. No injection or drainage. ENT: No nasal bleeding or discharge. Mucous membranes pink and moist. NECK: Trachea midline. No JVD. CARDIOVASCULAR: Regular rate and rhythm. Sternotomy RESPIRATORY: No accessory muscle use. Clear to auscultation. Breath sounds equal bilaterally. GASTROINTESTINAL: Abdomen soft, non-tender, nondistended. Hepatic and splenic margins not palpable. MUSCULOSKELETAL: Extremities without clubbing, cyanosis, or edema. No obvious deformities. NEUROLOGICAL: Awake and alert. No obvious cranial nerve deficits. Motor grossly within normal limits. Five out of 5 muscle strength in the arms and legs. Normal speech. PSYCHIATRIC: Appropriate mood and affect; insight and judgment normal. Laboratory Laboratory Tests Test 01/17/18 04:30 White Blood Count 11.7 TH/MM3 Red Blood Count 4.22 MIL/MM3 Hemoglobin 13.7 GM/DL Hematocrit 39.6 % Mean Corpuscular Volume 93.9 FL Mean Corpuscular Hemoglobin 32.4 PG Mean Corpuscular Hemoglobin Concent 34.5 % Red Cell Distribution Width 14.3 % Platelet Count 165 TH/MM3 Mean Platelet Volume 8.2 FL Neutrophils (%) (Auto) 83.8 % Lymphocytes (%) (Auto) 6.3 % Monocytes (%) (Auto) 9.4 % Eosinophils (%) (Auto) 0.2 % Basophils (%) (Auto) 0.3 % Neutrophils # (Auto) 9.8 TH/MM3 Lymphocytes # (Auto) 0.7 TH/MM3 Monocytes # (Auto) 1.1 TH/MM3 Eosinophils # (Auto) 0.0 TH/MM3 Basophils # (Auto) 0.0 TH/MM3 CBC Comment DIFF FINAL Differential Comment Blood Urea Nitrogen 24 MG/DL Creatinine 1.02 MG/DL Random Glucose 126 MG/DL Calcium Level 8.9 MG/DL Phosphorus Level 2.6 MG/DL Magnesium Level 2.5 MG/DL Sodium Level 139 MEQ/L Potassium Level 3.6 MEQ/L Chloride Level 105 MEQ/L Carbon Dioxide Level 23.9 MEQ/L Anion Gap 10 MEQ/L Estimat Glomerular Filtration Rate 73 ML/MIN Assessment and Plan Problem List: (1) S/P CABG x 3 ICD Codes: Z95.1 - Presence of aortocoronary bypass graft (2) s/p cardiac arrest (3) Hyperlipemia ICD Codes: E78.5 - Hyperlipidemia, unspecified (4) Hypertension ICD Codes: I10 - Essential (primary) hypertension (5) ETOH abuse ICD Codes: F10.10 - Alcohol abuse, uncomplicated (6) Ventricular arrhythmia ICD Codes: I49.9 - Cardiac arrhythmia, unspecified Status: Acute (7) Syncope ICD Codes: R55 - Syncope and collapse Status: Acute (8) Heme + stool ICD Codes: R19.5 - Other fecal abnormalities Assessment and Plan 1) Cardiac arrest due to VT 2) VT due to ischemia 3) MVCAD/NSTEMI s/p CABGx3 POD#2 NOAWK to Diag SVG to LAD SVG to Ramus/high OM 4) EF 50-55% 5) HTN 6) Con't to ambulate Problem Qualifiers (1) Syncope: Qualified Codes: R55 - Syncope and collapse Francois Vincent DO Jan 17, 2018 16:29
[2018-01-17] MEDS: FUROSEMIDE 40 MG/4 ML VIAL IV PUSH SCH (17:20)
[2018-01-17] MEDS: SENNOSIDES 8.6 MG TAB PO SCH (21:00)
[2018-01-17] MEDS: METOPROLOL TARTRATE 50 MG TAB PO SCH (21:22)
[2018-01-17] MEDS: ATORVASTATIN 80 MG TAB PO SCH (21:24)
[2018-01-18] VITALS (19 sets, daily range): BP systolic 117–134; BP diastolic 60–79; PULSE 71–97; RESP 16–20; TEMP 98.2–98.6; O2SAT 91–93
[2018-01-18] MEDS: ACETAMINOPHEN/HYDROcodone 325 MG/5 MG TAB PO PRN ×2 (03:38→11:22)
[2018-01-18 04:59] LABS: HEMATOCRIT 43.3 % (39.0-51.0); MEAN CELL VOLUME 93.5 FL (80.0-100.0); MEAN CORPUSCULAR HEMOGLOBIN 32.5 PG (27.0-34.0); MEAN CORPUSCULAR HGB CONC 34.8 % (32.0-36.0); MEAN PLATELET VOLUME 8.1 FL (7.0-11.0); PLATELET COUNT 170 TH/MM3 (150-450); RED BLOOD COUNT 4.63 MIL/MM3 (4.50-5.90); RED CELL DISTRIBUTION WIDTH 14.5 % (11.6-17.2); WHITE BLOOD COUNT 9.5 TH/MM3 (4.0-11.0)
[2018-01-18 05:10] LABS: BICARBONATE 24.6 MEQ/L (21.0-32.0); CALCIUM 8.7 MG/DL (8.5-10.1); CREATININE 0.93 MG/DL (0.60-1.30); MAGNESIUM 2.6 MG/DL (1.5-2.5)
[2018-01-18] MEDS: LEVOTHYROXINE SODIUM 50 MCG TAB PO SCH (06:00)
[2018-01-18] MEDS: PANTOPRAZOLE SOD 40 MG DELAYED RELEASE TAB PO SCH (06:00)
--- NOTE | 2018-01-18 06:11 | RADRPT ---
EXAM DATE: 01/18/2018 6:00 AM EDT AGE/SEX: 63 years / Male INDICATIONS: Shortness of breath, possible pneumothorax. CLINICAL DATA: This is the patient's subsequent encounter. Patient reports that signs and symptoms h ave been present for 1 week and indicates a pain score of 0/10. MEDICAL/SURGICAL HISTORY: None. CABG. COMPARISON: [facility], CHEST SINGLE AP, 01/16/2018. . FINDINGS: Single AP view the chest. Median sternotomy wires remain. Endotracheal tube, nasogastric tube, right IJ central venous catheter, and bilateral chest tubes are no longer seen. Persistent cardiac silhouet te enlargement. Mild patchy bilateral pulmonary opacity unchanged. No evidence of pneumothorax. CONCLUSION: Interval removal of multiple lines and tubes. Persistent cardiac silhouette enlargement and mild patc hy bilateral pulmonary opacity. Electronically signed by: Ketan Doyle MD 01/18/2018 6:10 AM EDT
[2018-01-18] MEDS: RESP: ALBUTEROL 2.5 MG/IPRATROPIUM 0.5 MG NEB (SCH) NEB (07:33)
[2018-01-18] MEDS: INSULIN ASPART SUPPLEMENTAL SCALE SQ SCH ×3 (08:00→17:00)
[2018-01-18] MEDS: ASPIRIN 81 MG CHEW TAB PO SCH (08:23)
[2018-01-18] MEDS: CLOPIDOGREL 75 MG TAB PO SCH (08:23)
[2018-01-18] MEDS: MULTIVITAMIN TAB PO SCH (08:23)
[2018-01-18] MEDS: amLODIPine BESYLATE 5 MG TAB PO SCH (08:23)
[2018-01-18] MEDS: POLYETHYLENE GLYCOL 17 GM PKG PO SCH (08:23)
[2018-01-18] MEDS: POTASSIUM CHLORIDE 10 MEQ CONTROLLED RELEASE TAB PO SCH (08:23)
[2018-01-18] MEDS: MULTIVITAMINS/MINERALS THERAPEUTIC TAB PO SCH (08:23)
[2018-01-18] MEDS: METOPROLOL TARTRATE 50 MG TAB PO SCH (08:24)
[2018-01-18] MEDS: DOCUSATE SODIUM 100 MG CAP PO SCH (08:24)
[2018-01-18] MEDS: AMIODARONE 200 MG TAB PO SCH (08:24)
[2018-01-18] MEDS: MAGNESIUM HYDROXIDE SUSP 30 ML CUP PO SCH (08:24)
[2018-01-18] MEDS: FUROSEMIDE 40 MG/4 ML VIAL IV PUSH SCH (08:25)
[2018-01-18] MEDS: SODIUM CHLORIDE 0.9% FLUSH 10 ML FLUSH IV FLUSH SCH (08:25)
--- NOTE | 2018-01-18 11:53 | PD.CARD.PN ---
Subjective Subjective Remarks Doing well, up to the chair Up and ambulating Objective Medications Current Medications Medications (Trade) Dose Ordered Sig/Edd Route Start Time Stop Time Status Last Admin (Lipitor) 80 mg HS PO 01/09/18 21:00 01/17/18 21:24 (Pill Splitter) 1 ea UNSCH PRN OTHER 01/09/18 14:30 (Theragran) 1 tab DAILY PO 01/10/18 09:00 01/18/18 08:23 (Synthroid) 50 mcg DAILY@0600 PO 01/15/18 06:00 01/18/18 06:00 (NS Flush) 2 ml BID IV FLUSH 01/15/18 21:00 01/18/18 08:25 (NS Flush) 2 ml UNSCH PRN IV FLUSH 01/15/18 12:15 (Aspirin Chew) 81 mg DAILY PO 01/16/18 09:00 01/18/18 08:23 (Plavix) 75 mg DAILY PO 01/16/18 09:00 01/18/18 08:23 (Protonix) 40 mg DAILY@06 PO 01/16/18 06:00 01/18/18 06:00 (Cordarone) 200 mg Q12HR PO 01/15/18 21:00 01/18/18 08:24 (Tylenol) 650 mg Q4H PRN PO 01/15/18 12:15 ([place] 5-325 Mg) 1 tab Q3H PRN PO 01/15/18 12:15 01/18/18 11:22 (Zofran Odt) 4 mg Q6H PRN PO 01/15/18 13:45 (Apresoline Inj) 10 mg Q4H PRN IV PUSH 01/15/18 12:15 01/16/18 16:08 (Lopressor Inj) 2.5 mg Q1H PRN IV PUSH 01/15/18 12:15 (Duoneb Neb) 1 ampule Q2HR NEB PRN NEB 01/15/18 12:15 01/17/18 03:40 (Duoneb Neb) 1 ampule Q6HR WHILE AWAKE NEB NEB 01/16/18 14:00 01/18/18 13:59 01/18/18 07:33 (Colace) 100 mg BID PO 01/16/18 21:00 01/17/18 09:21 (Theragran M Tab) 1 tab DAILY PO 01/16/18 09:00 01/18/18 08:23 (Milk Of Magnesia Liq) 30 ml DAILY PO 01/16/18 09:00 01/17/18 09:23 (Dulcolax Supp) 10 mg UNSCH PRN RECTAL 01/16/18 09:00 (Miralax) 17 gm DAILY PO 01/17/18 09:00 01/17/18 09:23 (Senokot) 8.6 mg HS PO 01/16/18 21:00 01/16/18 20:35 (Fleets Enema (Adult)) 118 ml UNSCH PRN RECTAL 01/16/18 09:00 (D50w (Vial) Inj) 50 ml UNSCH PRN IV PUSH 01/16/18 09:00 (Glucagon Inj) 1 mg UNSCH PRN OTHER 01/16/18 09:00 (NovoLOG SUPPLEMENTAL SCALE) 1 ACHS SQ 01/17/18 12:00 01/17/18 21:25 (Norvasc) 10 mg DAILY PO 01/17/18 09:00 01/18/18 08:23 (Catapres) 0.1 mg Q6H PRN PO 01/16/18 15:15 (Lopressor) 50 mg Q12HR PO 01/17/18 21:00 01/18/18 08:24 (Lasix Inj) 40 mg BID@,18 IV PUSH 01/17/18 18:00 01/18/18 08:25 (KCl) 30 meq Q12HR PO 01/17/18 09:15 01/18/18 08:23 Vital Signs / I&O Vital Signs Date Time Temp Pulse Resp B/P (MAP) Pulse Ox O2 Delivery O2 Flow Rate FiO2 01/18/18 08:15 93 Room Air 01/18/18 08:15 98.4 97 20 134/67 (89) 93 01/18/18 07:33 93 21 01/18/18 06:00 81 01/18/18 05:40 93 Room Air 01/18/18 05:00 80 01/18/18 04:00 78 01/18/18 04:00 98.4 81 17 131/79 (96) 93 01/18/18 03:00 79 01/18/18 02:00 73 01/18/18 01:00 77 01/18/18 00:00 98.4 74 16 126/72 (90) 92 01/18/18 00:00 71 01/17/18 23:00 84 01/17/18 22:00 92 01/17/18 21:00 107 01/17/18 20:00 93 Room Air 01/17/18 20:00 103 01/17/18 20:00 99.0 109 16 133/75 (94) 94 01/17/18 19:00 101 01/17/18 18:00 101 01/17/18 17:00 98 01/17/18 16:00 96 01/17/18 15:00 100 01/17/18 15:00 91 Room Air 01/17/18 15:00 98.3 101 17 128/72 (90) 91 01/17/18 14:00 100 01/17/18 13:00 103 01/17/18 12:00 100 I/O 01/17/18 01/17/18 01/17/18 01/18/18 01/18/18 01/18/18 07:00 15:00 23:00 07:00 15:00 23:00 Intake Total 770 ml 500 ml 480 ml Output Total 470 ml 460 ml 1050 ml Balance 300 ml 40 ml -570 ml Intake Oral 720 ml 400 ml 480 ml IV Total 50 ml Other 100 ml Output Urine Total 400 ml 400 ml 1050 ml Chest Tube Drainage Total 70 ml 60 ml # Voids 2 2 # Bowel Movements 1 2 2 Physical Exam GENERAL: NAD, AAOx3 SKIN: Warm and dry. HEAD: Atraumatic. Normocephalic. EYES: Pupils equal and round. No scleral icterus. No injection or drainage. ENT: No nasal bleeding or discharge. Mucous membranes pink and moist. NECK: Trachea midline. No JVD. CARDIOVASCULAR: Regular rate and rhythm. Sternotomy RESPIRATORY: No accessory muscle use. Clear to auscultation. Breath sounds equal bilaterally. GASTROINTESTINAL: Abdomen soft, non-tender, nondistended. Hepatic and splenic margins not palpable. MUSCULOSKELETAL: Extremities without clubbing, cyanosis, or edema. No obvious deformities. NEUROLOGICAL: Awake and alert. No obvious cranial nerve deficits. Motor grossly within normal limits. Five out of 5 muscle strength in the arms and legs. Normal speech. PSYCHIATRIC: Appropriate mood and affect; insight and judgment normal. Laboratory Laboratory Tests Test 01/18/18 04:32 White Blood Count 9.5 TH/MM3 Red Blood Count 4.63 MIL/MM3 Hemoglobin 15.0 GM/DL Hematocrit 43.3 % Mean Corpuscular Volume 93.5 FL Mean Corpuscular Hemoglobin 32.5 PG Mean Corpuscular Hemoglobin Concent 34.8 % Red Cell Distribution Width 14.5 % Platelet Count 170 TH/MM3 Mean Platelet Volume 8.1 FL Blood Urea Nitrogen 22 MG/DL Creatinine 0.93 MG/DL Random Glucose 104 MG/DL Calcium Level 8.7 MG/DL Magnesium Level 2.6 MG/DL Sodium Level 139 MEQ/L Potassium Level 3.8 MEQ/L Chloride Level 104 MEQ/L Carbon Dioxide Level 24.6 MEQ/L Anion Gap 10 MEQ/L Estimat Glomerular Filtration Rate 82 ML/MIN Imaging Last 24 hours Impressions Chest X-Ray 01/18/18 0600 Signed Impressions: CONCLUSION: Interval removal of multiple lines and tubes. Persistent cardiac silhouette enl argement and mild patchy bilateral pulmonary opacity. Assessment and Plan Problem List: (1) S/P CABG x 3 ICD Codes: Z95.1 - Presence of aortocoronary bypass graft (2) s/p cardiac arrest (3) Hyperlipemia ICD Codes: E78.5 - Hyperlipidemia, unspecified (4) Hypertension ICD Codes: I10 - Essential (primary) hypertension (5) ETOH abuse ICD Codes: F10.10 - Alcohol abuse, uncomplicated (6) Ventricular arrhythmia ICD Codes: I49.9 - Cardiac arrhythmia, unspecified Status: Acute (7) Syncope ICD Codes: R55 - Syncope and collapse Status: Acute (8) Heme + stool ICD Codes: R19.5 - Other fecal abnormalities Assessment and Plan 1) Cardiac arrest due to VT 2) VT due to ischemia 3) MVCAD/NSTEMI s/p CABGx3 POD#3 NOWAK to Diag SVG to LAD SVG to Ramus/high OM 4) EF 50-55% 5) HTN 6) Con't to ambulate 7) Discharge planning Problem Qualifiers (1) Syncope: Qualified Codes: R55 - Syncope and collapse Francois Vincent DO Jan 18, 2018 11:53
--- NOTE | 2018-01-18 15:18 | HHI.DCPOC ---
Discharge Care Plan Diagnosis: (1) s/p cardiac arrest (2) Hyperlipemia (3) Hypertension (4) S/P CABG x 3 Additional Problems PREVENA Single Use Negative Wound Therapy System Caregiver Instruction Sheet 1. A Prevena dressing system was applied to the chest incision during surgery , to promote wound healing. It works via a suction device (negative pressure wound therapy) to remove low to moderate levels of exudate (drainage) and infectious materials. We recommend that the device stay in place for up to seven days, from day of surgery. 2. Day of Surgery___/06/24 Day of Removal __/ 3. The dressing should only be removed by a health rn acute care. Please arrange removal of device to coincide with Home Health visit and or with Nursing staff at Rehab 4. If skin reddening or irritation of skin occurs, or excessive drainage, please notify the Cardiovascular Surgeons office at [phone]. 5. Light showering is permissible; however the pump should be disconnected and placed in safe location, where it will not get wet. The dressing should not be exposed to direct spray or submerged in water. No bath tub / shower only. Ensure the end of the tubing attached to the dressing is facing down so that water does not enter the top of the tube. 6. To remove Prevena dressing: press purple button to turn off device / remove the suction. Then disconnect the tubing from the pump. The fixation strips should be stretched away from the skin and the dressing lifted at one corner and peeled back until it has been fully removed. 7. After removal, it is ok to shower daily using liquid dial soap and clean wash cloth, rinse and pat dry, and leave incision open to air dry. For any concerns regarding Prevena dressing, and or wounds, please contact Zuleika Cuadra, patient navigator at [phone] or notify the Cardiovascular Surgeons office at [phone]. + Incentive spirometry Q1 hr x 10, while awake, also use acapella device hourly whole awake Sternal Breast Bone Precautions: NO pushing or pulling, ( pt must use sternal pillow to support chest with all activities and with coughing ( takes up to 3 months breast bone to heal ) All females to wear sternal bra , launder as needed Daily incision care: ok to shower daily, no tub bath. Wash all incisions with liquid dial soap, clean wash cloth to each site, rinse and pat dry. Observe for any signs of infection, such as drainage which is dark yellow, campbell, green or foul smelling. Immediately report to the surgeon any drainage from the chest incision, or legs, and for any abnormal drainage from the chest tube sites. Notify surgeon if any temp >101.5 degrees F. When specialty dressing removed/ or if you do not have one, continue to shower daily as above, then rinse and pat incision dry and paint with betadine daily x 5 days. Allow steri strips to fall off if you have any. Avoid lotions, creams, salves, oils, etc. for the first month Please see attached forms for additional instructions regarding post Open Heart specialty wound vacuum dressings. ALICIA or Prevena , Dressing to be removed by Nursing staff on __// F/U appointment: as per DC instructions: PCP in 2 weeks, CV surgeon 2 weeks, Inspector Eyeg[employer]ames 3-4 weeks For any questions regarding incisions/ dressing / meds / post op care or above Symptoms, Monday 8am-5pm Heart & Vascular Surgery Office ( Dr. Marquez & Dr. Sol), After Hours / Nights (5pm -8am) Weekends and Holidays Please call [facility] ([facility]) Charge Nurse Goals to Promote Your Health * To prevent worsening of your condition and complications * To maintain your health at the optimal level Directions to Meet Your Goals Take your medications as prescribed Follow your dietary instruction Follow activity as directed Keep your appointments as scheduled Take your immunizations and boosters as scheduled If your symptoms worsen call your PCP, if no PCP go to Urgent Care Center or Emergency Room Smoking is Dangerous to Your Health. Avoid second hand smoke Call the 24-hour hour crisis hotline for domestic abuse at Lilian Marquis Jan 18, 2018 15:18
--- NOTE | 2018-01-18 15:21 | PD.CAR.PN ---
CVT Progress Note Subjective/Hospital Course: 63-year-old male. The patient apparently was working out at the [facility] in [place] when he collapsed, witnessed cardiac arrest. The bystander said that he was unresponsive. They grabbed the AED, which advised them to shock. The shock was delivered. There was a physician at the scene and came in with the patient in the ambulance to help provide a history. The EKG was done. The patient was felt to be a posterior ST segment [place]. A repeat EKG was done and it was felt to be a non-STEMI instead of a STEMI alert. Patient apparently had return of spontaneous circulation after the shock and 2 rounds of CPR. The patient denies having any history of cardiac disease, has not seen a physician in probably 20 years. He said he had a [employer] screening 3 years ago, which went well. Echo: EF 50%/ grade 1 diastolic dysfunction 01/10 pt pain free last pm , other than some soreness left upper chest from the shock scheduled for surgery on Monday on Heparin gtt 01/11 per nursing , pt had one + Hemoccult stool/ second pending , if + will need GI consult , on PPI no chest pain on heparin gtt 01/12 doing well , no new complaints second Hemoccult neg for surgery on Sunday 01/14 CP free OR in am 01/15 surgery 1. Off-pump Coronary Artery Bypass Grafting x 3 with Left Internal Mammary Artery (NOWAK) to Diagonal ! (D1), reverse saphenous vein graft to Left Anterior Descending (LAD), reverse saphenous vein graft to the Ramus marginalis (RM) 2. Right Leg Endoscopic Vein [facility] 3. Intraoperative Vein Mapping. 01/16 remained intubated until early this am , has hx of sleep apnea po meds started to wean off cleviprex 01/17 BB increased, on amiodarone gentle diuresis chest tube removed without difficulty transfer to stepdown 01/18 pt doing well on room air , anxious to go home + BM remains in NSR ok for DC from CVS standpoint , once [facility] obtained Objective: GENERAL: A&O x 3 SKIN: Warm and dry. prevena dressing to chest , incision intact to right leg HEAD: Normocephalic. EYES: No scleral icterus. No injection or drainage. NECK: Supple, trachea midline. No JVD or lymphadenopathy. CARDIOVASCULAR: Regular rate and rhythm without murmurs, gallops, or rubs. RESPIRATORY: Breath sounds equal bilaterally. No accessory muscle use. GASTROINTESTINAL: Abdomen soft, non-tender, nondistended. MUSCULOSKELETAL: No cyanosis, or edema. BACK: Nontender without obvious deformity. No CVA tenderness. Vital Signs Date Time Temp Pulse Resp B/P (MAP) Pulse Ox O2 Delivery O2 Flow Rate FiO2 01/18/18 14:01 85 01/18/18 13:00 79 01/18/18 12:00 76 01/18/18 11:01 98.6 79 20 117/60 (79) 91 01/18/18 11:01 91 Room Air 01/18/18 11:00 74 01/18/18 10:00 86 01/18/18 09:00 91 01/18/18 08:15 93 Room Air 01/18/18 08:15 98.4 97 20 134/67 (89) 93 01/18/18 08:00 90 01/18/18 07:33 93 21 01/18/18 07:00 79 01/18/18 06:00 81 01/18/18 05:40 93 Room Air 01/18/18 05:00 80 01/18/18 04:00 78 01/18/18 04:00 98.4 81 17 131/79 (96) 93 01/18/18 03:00 79 01/18/18 02:00 73 01/18/18 01:00 77 01/18/18 00:00 98.4 74 16 126/72 (90) 92 01/18/18 00:00 71 01/17/18 23:00 84 01/17/18 22:00 92 01/17/18 21:00 107 01/17/18 20:00 93 Room Air 01/17/18 20:00 103 01/17/18 20:00 99.0 109 16 133/75 (94) 94 01/17/18 19:00 101 01/17/18 18:00 101 01/17/18 17:00 98 01/17/18 16:00 96 Labs: Laboratory Tests Test 01/18/18 04:32 White Blood Count 9.5 TH/MM3 (4.0-11.0) Red Blood Count 4.63 MIL/MM3 (4.50-5.90) Hemoglobin 15.0 GM/DL (13.0-17.0) Hematocrit 43.3 % (39.0-51.0) Mean Corpuscular Volume 93.5 FL (80.0-100.0) Mean Corpuscular Hemoglobin 32.5 PG (27.0-34.0) Mean Corpuscular Hemoglobin Concent 34.8 % (32.0-36.0) Red Cell Distribution Width 14.5 % (11.6-17.2) Platelet Count 170 TH/MM3 (150-450) Mean Platelet Volume 8.1 FL (7.0-11.0) Blood Urea Nitrogen 22 MG/DL (7-18) Creatinine 0.93 MG/DL (0.60-1.30) Random Glucose 104 MG/DL (74-106) Calcium Level 8.7 MG/DL (8.5-10.1) Magnesium Level 2.6 MG/DL (1.5-2.5) Sodium Level 139 MEQ/L (136-145) Potassium Level 3.8 MEQ/L (3.5-5.1) Chloride Level 104 MEQ/L (98-107) Carbon Dioxide Level 24.6 MEQ/L (21.0-32.0) Anion Gap 10 MEQ/L (5-15) Estimat Glomerular Filtration Rate 82 ML/MIN (>89) Result Diagram: 01/18/1843101/18/18431 Telemetry: NSR (1) S/P CABG x 3 Plan: ASA, statin , plavix, BB OOB CXR stable ok to dc from CVS standpoint (2) s/p cardiac arrest (3) Hyperlipemia Plan: on statin (4) Hypertension Plan: improved (5) ETOH abuse Plan: no evidence of withdrawal (6) Ventricular arrhythmia Plan: resolved (7) Syncope (8) Heme + stool Problem Qualifiers (1) Syncope: Qualified Codes: R55 - Syncope and collapse Lilian Marquis Jan 18, 2018 15:20
[2018-01-18] MEDS ORDERED: METO-309 PO (16:47)
[2018-01-18] MEDS ORDERED: PANT40TA3 PO (16:47)
[2018-01-18] MEDS ORDERED: THERM PO (16:47)
[2018-01-18] MEDS ORDERED: LEVO.05 PO (16:47)
[2018-01-18] MEDS ORDERED: ASPI81 PO (16:47)
[2018-01-18] MEDS ORDERED: AMLO5 PO (16:47)
[2018-01-18] MEDS ORDERED: ATOR80TA45 PO (16:47)
[2018-01-18] MEDS ORDERED: PLAV75TA29 PO (16:47)
[2018-01-18] MEDS ORDERED: AMIO200T PO ×2 (16:47→16:49)
--- NOTE | 2018-01-18 16:51 | HHI.PR ---
Subjective Remarks up and ambulating "ready to go home ' Objective Vitals Vital Signs Date Time Temp Pulse Resp B/P (MAP) Pulse Ox O2 Delivery O2 Flow Rate FiO2 01/18/18 15:15 93 Room Air 01/18/18 15:15 98.2 81 18 119/66 (83) 93 01/18/18 14:01 85 01/18/18 13:00 79 01/18/18 12:00 76 01/18/18 11:01 98.6 79 20 117/60 (79) 91 01/18/18 11:01 91 Room Air 01/18/18 11:00 74 01/18/18 10:00 86 01/18/18 09:00 91 01/18/18 08:15 93 Room Air 01/18/18 08:15 98.4 97 20 134/67 (89) 93 01/18/18 08:00 90 01/18/18 07:33 93 21 01/18/18 07:00 79 01/18/18 06:00 81 01/18/18 05:40 93 Room Air 01/18/18 05:00 80 01/18/18 04:00 78 01/18/18 04:00 98.4 81 17 131/79 (96) 93 01/18/18 03:00 79 01/18/18 02:00 73 01/18/18 01:00 77 01/18/18 00:00 98.4 74 16 126/72 (90) 92 01/18/18 00:00 71 01/17/18 23:00 84 01/17/18 22:00 92 01/17/18 21:00 107 01/17/18 20:00 93 Room Air 01/17/18 20:00 103 01/17/18 20:00 99.0 109 16 133/75 (94) 94 01/17/18 19:00 101 01/17/18 18:00 101 01/17/18 17:00 98 I/O 01/17/18 01/17/18 01/17/18 01/18/18 01/18/18 01/18/18 07:00 15:00 23:00 07:00 15:00 23:00 Intake Total 770 ml 500 ml 480 ml Output Total 470 ml 460 ml 1050 ml Balance 300 ml 40 ml -570 ml Intake Oral 720 ml 400 ml 480 ml IV Total 50 ml Other 100 ml Output Urine Total 400 ml 400 ml 1050 ml Chest Tube Drainage Total 70 ml 60 ml # Voids 2 2 # Bowel Movements 1 2 2 Result Diagram: 01/18/18 0432 01/18/18 0432 Imaging Last Impressions Chest X-Ray 01/18/18 0600 Signed Impressions: CONCLUSION: Interval removal of multiple lines and tubes. Persistent cardiac silhouette enl argement and mild patchy bilateral pulmonary opacity. Lower Extremity Ultrasound 01/10/18 0000 Signed Impressions: CONCLUSION: 1. Venous mapping as detailed above. Carotid Artery Ultrasound 01/10/18 0000 Signed Impressions: CONCLUSION: No evidence for hemodynamically significant stenosis. Objective Remarks awake and alert, no acute distress anciteric chest- Prevena dressing in palce regular rhythm\\abdomen- globularly soft, nontedner extremiteis- trace pretibial edema, good epripheral pulses neuro exam- unremarkable Procedures CABG A/P Problem List: (1) Syncope ICD Code: R55 - Syncope and collapse Status: Acute (2) Ventricular arrhythmia ICD Code: I49.9 - Cardiac arrhythmia, unspecified Status: Acute (3) s/p cardiac arrest (4) Hyperlipemia ICD Code: E78.5 - Hyperlipidemia, unspecified (5) Hypertension ICD Code: I10 - Essential (primary) hypertension Assessment and Plan NSTEMI s/p cardiac arrest, Ventricular arrhythmia Patient revived at the gym by bystanders using AED Multivessel disease present on angiogram Open heart surgery done on 01/15/2018 Doing well post-op, extubated on 01/15 Continue with post-op care, encourage ambulation DC home today- BB- Lopresor 50 mg po bid, ASa. Plavix, statins, amloidpine Amiodarone 200 mg po bid till 10/04 rhn DC Hypothyroidism TSH was 8.0 preop Continue Synthroid DC hoem today with home health care Problem Qualifiers (1) Syncope: Qualified Codes: R55 - Syncope and collapse Yann Retana MD Jan 18, 2018 16:51
--- NOTE | 2018-01-18 16:59 | HHI.DS ---
Discharge Summary Admission Date Jan 09, 2018 at 11:12 Discharge Date: Jan 18, 2018 Admitting Diagnosis post cardiac arrest (1) S/P CABG x 3 ICD Code: Z95.1 - Presence of aortocoronary bypass graft Diagnosis: Principal (2) Ventricular arrhythmia ICD Code: I49.9 - Cardiac arrhythmia, unspecified Diagnosis: Principal Status: Acute (3) Hyperlipemia ICD Code: E78.5 - Hyperlipidemia, unspecified Diagnosis: Secondary (4) s/p cardiac arrest Diagnosis: Principal (5) Syncope ICD Code: R55 - Syncope and collapse Diagnosis: Secondary Status: Acute (6) Hypertension ICD Code: I10 - Essential (primary) hypertension Diagnosis: Secondary Procedures CABG Brief History - From Admission This is a 63-year-old male who presented to the ER on 01/09/2018 after having a syncopal episode at the gym. He was exercising and became dizzy and passed out. He denies any chest pain or abnormal shortness of breath associated with his episode. He does state that at the gym there was a hot tamale worker that showed his heart rate was up to 127. In retrospect this was a cardiac arrest, likely due to primary or secondary arrhythmia. Fortunately there was a doctor and staff at the gym who placed him on a AED for early resuscitation. Heart cath yesterday revealed two-vessel disease and it was determined that he would benefit from a CABG instead of stenting. He denies any current chest pain, denies shortness of breath. CBC/BMP: 01/18/18 0432 01/18/18 0432 Significant Findings Laboratory Tests Test 01/16/18 04:30 01/16/18 05:55 01/17/18 04:30 01/18/18 04:32 Red Blood Count 4.27 MIL/MM3 (4.50-5.90) 4.22 MIL/MM3 (4.50-5.90) Neutrophils (%) (Auto) 83.7 % (16.0-70.0) 83.8 % (16.0-70.0) Lymphocytes (%) (Auto) 5.7 % (9.0-44.0) 6.3 % (9.0-44.0) Monocytes (%) (Auto) 10.4 % (0.0-8.0) 9.4 % (0.0-8.0) Neutrophils # (Auto) 8.4 TH/MM3 (1.8-7.7) 9.8 TH/MM3 (1.8-7.7) Lymphocytes # (Auto) 0.6 TH/MM3 (1.0-4.8) 0.7 TH/MM3 (1.0-4.8) Monocytes # (Auto) 1.0 TH/MM3 (0-0.9) 1.1 TH/MM3 (0-0.9) Random Glucose 125 MG/DL (74-106) 126 MG/DL (74-106) Total Bilirubin 1.2 MG/DL (0.2-1.0) Estimat Glomerular Filtration Rate 64 ML/MIN (>89) 73 ML/MIN (>89) 82 ML/MIN (>89) Free Triiodothyronine (T3) pg/dL 1.53 PG/ML (2.18-3.98) Arterial Blood Partial Pressure CO2 35 mmHg (38-42) White Blood Count 11.7 TH/MM3 (4.0-11.0) Blood Urea Nitrogen 24 MG/DL (7-18) 22 MG/DL (7-18) Magnesium Level 2.6 MG/DL (1.5-2.5) PE at Discharge awake and alert, no acute distress anciteric chest- Prevena dressing in palce regular rhythm\abdomen- globularly soft, nontedner extremiteis- trace pretibial edema, good epripheral pulses neuro exam- unremarkable Pt update on day of discharge in sinus rhythm awake and alet, no distress Pt Condition on Discharge: Stable Discharge Disposition: Discharge Home Discharge Time: > 30 minutes Discharge Instructions DIET: Follow Instructions for: Heart Healthy Diet Speech Therapy-Diet Recommends: Regular Activities you can perform: Weight Bearing as Tina Activities to Avoid: Strenuous Activity Other Activity Instructions: as intrcuted Follow up Referrals: Cardiology - 4 Weeks with Francois Vincent DO PCP Follow-up with [facility] Surgical - 2 Weeks with Lilian Marquis New Medications: Amiodarone (Amiodarone) 200 Mg Tab 200 MG PO Q12HR for S/P CABG for 14 Days, #28 TAB 0 Refills Amlodipine (Norvasc) 5 Mg Tab 10 MG PO DAILY for HTN.CAD for 30 Days, #30 TAB 6 Refills Aspirin (Tgt Aspirin) 81 Mg Chw 81 MG PO DAILY for CAD for 30 Days, EA 6 Refills Atorvastatin (Atorvastatin) 80 Mg Tab 80 MG PO HS for CAD for 30 Days, TAB 6 Refills Clopidogrel (Plavix) 75 Mg Tab 75 MG PO DAILY for CAD for 30 Days, #30 TAB 6 Refills Levothyroxine (Synthroid) 50 Mcg Tab 50 MCG PO DAILY@0600 for repla for 30 Days, TAB 6 Refills Metoprolol Tartrate (Lopressor) 50 Mg Tab 50 MG PO Q12HR for CAD for 30 Days, TAB 6 Refills Multiple Vitamins W/ Minerals (Thera M Plus) 1 Tab 1 TAB PO DAILY for supplement for 30 Days, #30 TAB 5 Refills Pantoprazole (Pantoprazole) 40 Mg Tab 40 MG PO DAILY@06 for GI prop for 30 Days, TAB 3 Refills Discontinued Medications: Hydrocodone-Acetaminophen (Sidney) 5 Mg-325 Mg Tab 1-2 TAB PO Q4-6H PRN for PAIN, #12 TAB 0 Refills Ibuprofen (Ibuprofen) 800 Mg Tab 800 MG PO Q8H PRN for PAIN SCALE 1 TO 10, #20 TAB 0 Refills Methocarbamol (Robaxin) 500 Mg Tab 500 MG PO QID PRN for MUSCLE SPASM, #30 TAB 0 Refills Yann Retana MD Jan 18, 2018 16:59
[2018-01-18] MEDS ORDERED: HYDR-3516 PO (17:01)
--- NOTE | 2018-01-22 10:34 | RSPPFT ---
DATE OF PROCEDURE: 01/10/18 COMMENTS: VOLUMES DYNAMIC: FVC and FEV1 severely reduced. FLOWS: FEV1% normal; FEF 25-75 severely reduced. IMPRESSION: Probable severe restrictive ventilatory defect. Clinical correlation is required.
== END 2018-01-18 17:15 | disposition home health service (06) | DRG 233 ==
LOC: NEPE 10:48 → NEDA 11:12 → HCPC 12:10 → HCVI 01-15 12:57 → HCPC 01-16 08:07 → HCVI 01-16 08:14 → HCPC 01-17 10:31
PROVIDERS: ADMIT Internal Medicine; ATTEND Internal Medicine
PROC: 4A023N7 Measurement of Cardiac Sampling and Pressure, Left Heart, Percutaneous Approach (ICD-10-PCS; principal; 2018-01-09)
PROC: B2111ZZ Fluoroscopy of Multiple Coronary Arteries using Low Osmolar Contrast (ICD-10-PCS; 2018-01-09)
PROC: 021109W Bypass Coronary Artery, Two Arteries from Aorta with Autologous Venous Tissue, Open Approach (ICD-10-PCS; 2018-01-15)
PROC: 06BP4ZZ Excision of Right Saphenous Vein, Percutaneous Endoscopic Approach (ICD-10-PCS; 2018-01-15)
PROC: 02100Z9 Bypass Coronary Artery, One Artery from Left Internal Mammary, Open Approach (ICD-10-PCS; 2018-01-15 07:12)
DX: I21.4 Non-ST elevation (NSTEMI) myocardial infarction (principal); I46.2 Cardiac arrest due to underlying cardiac condition; I49.01 Ventricular fibrillation; J96.90 Respiratory failure, unspecified, unspecified whether with hypoxia or hypercapnia; I47.2 Ventricular tachycardia; E66.2 Morbid (severe) obesity with alveolar hypoventilation; I10 Essential (primary) hypertension; R55 Syncope and collapse; E78.5 Hyperlipidemia, unspecified; I25.10 Atherosclerotic heart disease of native coronary artery without angina pectoris; E03.9 Hypothyroidism, unspecified; F10.10 Alcohol abuse, uncomplicated; Y90.9 Presence of alcohol in blood, level not specified; R19.5 Other fecal abnormalities; Z68.35 Body mass index [BMI] 35.0-35.9, adult; Z87.891 Personal history of nicotine dependence; Z82.49 Family history of ischemic heart disease and other diseases of the circulatory system; Z82.0 Family history of epilepsy and other diseases of the nervous system
CPT/HCPCS: 36430; 71045; 76937; 80048; 80053; 80061; 80076; 81001; 82272; 82310; 82550; 82552; 82805; 82948; 83036; 83735; 83880; 84100; 84439; 84443; 84481; 84484; 85014; 85025; 85027; 85610; 85730; 86850; 86900; 86901; 86920; 87641; 93005; 93306; 93458; 93880; 93970; 93998; 94002; 94003; 94010; 94150; 94640; 94664; 94667; 94668; 99152; 99153; 99285; C1768; C1769; C1893; C9248; J0131; J0171; J0360; J0690; J1644; J1815; J1817; J1885; J1940; J2250; J2370; J2440; J2720; J3010; J3370; J3475; J3480; J7040; J7050; J7120; P9016; P9045; Q9967